=== PATIENT | male | born 1945 | race Caucasian/White ===

== ENCOUNTER → 2018-01-10 13:07 | Outpatient (CLI) | payer BC, MEDICARE, SELFPAY ==
--- NOTE | 2018-01-10 | DI.US.S_ITS ---
PROCEDURE: US ABD AORTA ANEURYSM SCREEN INDICATIONS: SCREENING TECHNIQUE: Real time scanning was performed of the aorta and iliac arteries, with image documentation. COMPARISON: None. FINDINGS: Aorta: Proximal aortic diameter measures 1.9 cm. Mid-aorta measures 1.7 cm. Distal aortic diameter is 1.5 cm. Iliac arteries: Right common iliac artery measures 1.0 cm. Left common iliac artery measures 1.1 cm. IMPRESSION: No abdominal aortic or proximal common iliac artery aneurysm. Dictated by: Huan Antonio [facility] Interpreted: Rolly Olvera MD on 01/10/2018 at 14:20 Approved by: Rolly Olvera M.D. on 01/10/2018 at 18:04
== END ==
PROVIDERS: PCP Family Medicine; Visit Provider Family Medicine
DX: Z13.6 Encounter for screening for cardiovascular disorders (principal)
CPT/HCPCS: 76706

== ENCOUNTER → 2019-04-07 08:38 | Outpatient (CLI) | payer MEDICARE, BC, SELFPAY ==
--- NOTE | 2019-04-07 08:44 | DI.CT.S_ITS ---
PROCEDURE: CT ABDOMEN PELVIS WO CON INDICATIONS: FLANK PAIN TECHNIQUE: Noncontrast 5 mm thick sections acquired from the diaphragms to the symphysis. 5 mm thick coronal and sagittal reformats were then performed. For radiation dose reduction, the following was used: automated exposure control, adjustment of mA and/or kV according to patient size. COMPARISON: None. FINDINGS: Image quality: Excellent. Lung bases: Lung bases are clear. Heart size is normal. Coronary artery calcifications are present. Distal esophageal wall thickening, versus trace hernia. Urinary system: Mild bilateral renal cortical thinning and age-indeterminate bilateral perinephric stranding. No hydronephrosis identified. No right-sided nephrolithiasis. 3 mm left renal calculus on image 34/2. Punctate left renal calculus image 43 series 2 in the inferior pole. No ureteral calculi or dilatation seen. No bladder calculi. The bladder wall grossly unremarkable. Prostate mildly enlarged. Other solid organs: Liver is normal in size. Gallbladder contracted. Pancreas is normal in contours. Spleen is normal in size. No adrenal nodules. Peritoneum and bowel: Unenhanced bowel loops demonstrate normal wall thickness and caliber. No free fluid or air. Diffuse moderate to large amount of stool Nodes and vessels: No retroperitoneal or mesenteric adenopathy by size criteria. Aorta and inferior vena cava are normal in caliber. Small midline fat containing ventral hernia. Pelvis: No free pelvic fluid. Small bilateral fat containing inguinal hernias, left greater than right. Bones: No suspicious bony lesions. Left hip arthroplasty and diffuse spondylosis and facet arthropathy. Minimal anterior wedging of the T12 vertebral body which could be physiologic, age-indeterminate. IMPRESSION: A few nonobstructive sub-5 mm left renal calculi. Coronary artery disease Possible distal esophageal wall thickening, potentially infectious or inflammatory versus neoplastic. Differential includes trace hiatal hernia. As clinically warranted, this could be further assessed with dedicated upper GI series versus endoscopy Small bilateral fat-containing inguinal hernias Large amount of diffuse stool suggestive of fecal retention Additional chronic and incidental findings as above. Dictated by: Tacho Romero M.D. on 04/07/2019 at 11:18 Approved by: Tacho Romero M.D. on 04/07/2019 at 11:25
== END ==
PROVIDERS: PCP Family Medicine; Visit Provider Family Medicine
DX: R10.9 Unspecified abdominal pain (principal); N20.0 Calculus of kidney; K40.20 Bilateral inguinal hernia, without obstruction or gangrene, not specified as recurrent; I25.10 Atherosclerotic heart disease of native coronary artery without angina pectoris; Z96.642 Presence of left artificial hip joint
CPT/HCPCS: 74176

== ENCOUNTER → 2020-01-23 06:28 | Outpatient (CLI) | payer MEDICARE, BC, SELFPAY ==
--- NOTE | 2020-01-23 | DI.ECHO.S_ITS ---
[facility] +---------+ [facility] +---------+ : : [address] : : : : [id number] : : : : Phone: [phone] Echocardiogram Report + + :Name: BOOGIE LEAL Study Date: 01/23/2020 Height: 66 in : :[facility] Weight: 194 lb : : Gender: Male BSA: 2.0 m2 : :: 1945 Age: 74 yrs BP: 148/75 mmHg: :Reason For Study: TYPE 2 DIABETES MELLITUS WITH MODERATE : :NONPROLIFERATIVE DIABETIC RETINOPATHY WITHOUT MACULAR EDEMA : :Ordering Physician: JEFF, : :CLAY Performed By: Annabella Pacheco : :Referring: CLAY AGUILAR : + + Interpretation Summary The ejection fraction is estimated to be 55-60%. There is trace mitral regurgitation. There is mild aortic valve sclerosis. Procedure: A two-dimensional transthoracic echocardiogram with color flow and Doppler was performed. Images from the parasternal window were difficult to obtain and are suboptimal in quality. The study quality was technically adequate. There is no prior echocardiogram noted for this patient. Left Ventricle: The left ventricle is normal in size and wall thickness. The ejection fraction is estimated to be 55-60%. There is a mild dyssynchronous contraction pattern, consistent with a conduction abnormality. Right Ventricle: The right ventricle grossly appears normal in size with probable normal systolic function. Atria: Both atria are normal in size. There is no Doppler evidence for an interatrial shunt. Mitral Valve: The mitral valve is normal in structure and function. There is trace mitral regurgitation. Aortic Valve: The aortic valve is grossly normal. The aortic valve is trileaflet. The aortic valve opens well. The aortic valve is slightly calcified. There is mild aortic valve sclerosis. There is no aortic valve stenosis. No aortic regurgitation is present. Tricuspid Valve: The tricuspid valve is not well visualized, but is grossly normal. Pulmonary artery pressures cannot be estimated because of the lack of a measurable TR jet velocity but the IVC suggests a CVP of around 3 mmHg. There is trace tricuspid regurgitation. Pulmonic Valve: The pulmonic valve is not well visualized. Great Vessels: The aortic root is not well visualized but is probably normal size. The ascending aorta is mildly enlarged. The IVC is of normal diameter and collapses greater than 50% with a sniff. This suggests a low right atrial pressure of 3 mm Hg. Pericardium/ Pleura There is no pericardial effusion. There is an anterior echo-free space consistent with a fat pad. There is no pleural effusion. MMode/2D Measurements & Calculations LVIDd: 4.3 cm LVOT diam: 2.0 cm LVIDs: 2.8 cm asc Aorta Diam: 3.6 cm FS: 35.9 % IVSd: 0.87 cm LVPWd: 1.1 cm LV watters. diameter/BSA (cm/m^2): 2.2 LV sys. diameter/BSA (cm/m^2): 1.4 LA A2 area: 20.6 cm2 RA long axis: 5.1 cm LA A4 area: 16.8 cm2 RA area: 19.4 cm2 LA length (vol): 5.5 cm RA vol: 62.6 ml LA vol: 53.2 ml RA : 31.7 ml/m2 LA vol index: 27.0 ml/m2 IVC diam: 1.7 cm RVD1 (basal): 3.5 cm TAPSE: 1.7 cm Doppler Measurements & Calculations Ao V2 max: 141.0 cm/sec LVOT Max Gama: 93.9 cm/sec Ao V2 mean: 94.6 cm/sec LV V1 max P.5 mmHg Ao max P.0 mmHg LV V1 VTI: 20.1 cm Ao mean P.2 mmHg REYNALDO(I,D): 2.2 cm2 Ao V2 VTI: 28.1 cm REYNALDO(V,D): 2.1 cm2 sev ratio: 0.72 REYNALDO indexed to BSA (cm^2/m^2): 1.1 MV E max gama: 65.9 cm/sec MV P1/2t max gama: 65.9 cm/sec MV A max gama: 89.6 cm/sec MVA(P1/2t): 2.8 cm2 MV E/A: 0.74 Med Peak E' Gama: 5.9 cm/sec E/E' med: 11.2 Lat Peak E' Gama: 7.4 cm/sec E/E' lat: 8.9 E/e' average: 10.0 MV P1/2t: 78.5 msec SV(LVOT): 62.4 ml Reading Physician:09:07 TOBI
== END ==
PROVIDERS: PCP Family Medicine; Referring Provider Family Medicine; Visit Provider Family Medicine
DX: E11.3393 Type 2 diabetes mellitus with moderate nonproliferative diabetic retinopathy without macular edema, bilateral (principal); I35.8 Other nonrheumatic aortic valve disorders; I77.89 Other specified disorders of arteries and arterioles
CPT/HCPCS: 93306

== ENCOUNTER → 2020-01-30 11:32 | Outpatient (CLI) | payer MEDICARE, BC, SELFPAY ==
--- NOTE | 2020-01-30 | DI.US.S_ITS ---
PROCEDURE: US CAROTID DOPPLER BI INDICATIONS: TYPE 2 DIABETES TECHNIQUE: Color and pulse Doppler interrogation was performed of both carotid systems, with image documentation and velocity measurements. COMPARISON: [facility], , CAROTID ARTERY DOPPLER BIL, 08/01/2009, 15:52. FINDINGS: Stenosis calculations are based on SRU (Society of Radiologists in Ultrasound) criteria. The flow velocities and the arterial waveforms are normal within both carotid arterial systems. The estimated degree of internal carotid artery stenosis is less than 50%. Antegrade flow is confirmed within both vertebral arteries. IMPRESSION: No hemodynamically significant stenosis is seen. No significant change from the prior. Dictated by: Miguel Nicholson M.D. on 01/30/2020 at 11:46 Approved by: Miguel Nicholson M.D. on 01/30/2020 at 11:46
== END ==
PROVIDERS: PCP Family Medicine; Referring Provider Family Medicine; Visit Provider Family Medicine
DX: E11.3393 Type 2 diabetes mellitus with moderate nonproliferative diabetic retinopathy without macular edema, bilateral (principal)
CPT/HCPCS: 93880

== ENCOUNTER → 2020-02-27 08:29 | Outpatient (CLI) | payer MEDICARE, BC, SELFPAY ==
--- NOTE | 2020-02-27 | DI.US.S_ITS ---
PROCEDURE: US ABDOMEN COMPLETE INDICATIONS: CHRONIC KIDNEY DISEASE TECHNIQUE: Real-time scanning was performed of the abdominal and retroperitoneal organs, with image documentation. COMPARISON: [facility], CT, CT ABDOMEN PELVIS WO CON, 04/07/2019, 8:44. FINDINGS: Liver: Liver is diffusely echogenic. Liver measures 17.2 cm in length. 2.8 x 1.7 x 1.6 cm hypoechoic focus at the dome. Gallbladder: Unremarkable. No sonographic Salazar sign. Biliary ducts: Intrahepatic bile ducts are non-dilated. Extrahepatic bile duct caliber measures 2-5 mm. Normal is 6-7 mm or less in diameter, or 10 mm or less post-cholecystectomy. Pancreas: Visualized portions of the pancreas are sonographically normal. Spleen: Spleen is normal in size and mildly heterogeneous in echotexture. Kidneys: Right kidney measures 11.7 cm long; left kidney measures 10.9 cm long. No hydronephrosis or nephrolithiasis. No solid masses. Right renal cortical thinning. Bilateral lobulated renal contours. Aorta: Visualized aorta is normal in caliber at less than 3 cm. However the proximal abdominal aorta is not well seen sonographically. Iliacs: Proximal common iliac arteries are normal in caliber at less than 2.5 cm. IVC: Not well seen sonographically Miscellaneous: No free abdominal fluid. Prevoid bladder volume measured 107 cc, however no postvoid residual was obtainable. IMPRESSION: Coarse echogenic liver suggesting diffuse hepatocellular disease/fatty infiltration. Please correlate with LFTs. Ill-defined hypoechoic lesion involving the liver dome, technically nonspecific. As clinically warranted, continued surveillance with ultrasound at six-month intervals to document long-term 2 year stability could be performed or if there is high clinical suspicion, contrast enhanced liver protocol MRI could be considered to evaluate for malignancy. Dictated by: Tacho Romero M.D. on 02/27/2020 at 11:37 Approved by: Tacho Romero M.D. on 02/27/2020 at 11:43
== END ==
PROVIDERS: PCP Family Medicine; Referring Provider Family Medicine; Visit Provider Family Medicine
DX: N18.9 Chronic kidney disease, unspecified (principal); K76.9 Liver disease, unspecified
CPT/HCPCS: 76700

== ENCOUNTER → 2020-06-18 08:44 | Outpatient (CLI) | payer MEDICARE, BC, SELFPAY ==
--- NOTE | 2020-06-18 09:58 | DIET.PN ---
Diabetes Intake: Initial Assessment Assess: Mr. Moreira is a 74 yom referred for type 2 diabetes. He reports good control until the last few months. His medication was cut in half due to frequent hypo?s and chronic kidney disease. He is not active since retiring a couple of years ago. Admits to eating fast food nearly every day. He drinks large amounts of juice for breakfast. Labs: Per pt report: A1c: 8.4 eGFR: 42.4 FB?s Meds: metformin 500mg BID; glipizide 10mg BID Diet: per 24 hr recall: B: sausage and eggs, couple glasses of OJ L: usually skips D: chicken, [place]vian fries (usually [employer]) Wt: 196lb Ht: 66in BMI: 31.6 BP: DX: Altered nutrition related laboratory values related to impaired glucose metabolism, lack of previous exposure to nutrition information as evidenced by pt report, diagnosis of diabetes, previous diet high in refined carbohydrates. Intervention: 1. Completed intake assessment. Discussed barriers to care. 2. Discussed pathophysiology of diabetes. Reviewed A1c and its correlation to blood glucose numbers. Discussed recommended BG ranges. 3. Discussed importance of self-monitoring, how often, and when to check. 4. Reviewed hyper/hypoglycemia and treatment. 5. Reviewed safe disposal of equipment (strip/lancets/insulin needles). 6. Created SMART goals for pt self-care and success. 7. Discussed program curriculum outline and class needs based on individual goals. SMART Goals: 1. Pt goal A1c of 7.0 in the next 3 mo through learning carbohydrate counting, portion control and including planned exercise every day. Monitor/Evaluate: Pt will attend full DSME program. Basic Nutrition class scheduled for Jun 25.
== END ==
PROVIDERS: PCP Family Medicine; Referring Provider Family Medicine; Visit Provider Family Medicine
DX: E11.22 Type 2 diabetes mellitus with diabetic chronic kidney disease (principal); N18.9 Chronic kidney disease, unspecified; E66.9 Obesity, unspecified; Z79.84 Long term (current) use of oral hypoglycemic drugs; Z68.31 Body mass index [BMI] 31.0-31.9, adult; Z71.3 Dietary counseling and surveillance
CPT/HCPCS: G0108

== ENCOUNTER → 2020-06-25 09:38 | Outpatient (CLI) | payer MEDICARE, BC, SELFPAY ==
--- NOTE | 2020-06-25 12:02 | DIET.PN ---
Diabetes: Healthy Eating 2 Intervention: Fats effects on glucose, weight, heart disease, cholesterol Sat Vs Unsat Protein- animal and plant based options Low, med, high fat meats Sugar substitutes Sodium Health claims Grocery shopping guidelines Eating away from home Alcohol Sick day guidelines Ketone Testing
== END ==
PROVIDERS: PCP Family Medicine; Referring Provider Family Medicine; Visit Provider Family Medicine
DX: E11.9 Type 2 diabetes mellitus without complications (principal); Z71.3 Dietary counseling and surveillance
CPT/HCPCS: G0109

== ENCOUNTER → 2020-07-16 09:31 | Outpatient (CLI) | payer MEDICARE, BC, SELFPAY ==
--- NOTE | 2020-07-16 12:22 | DIET.PN ---
Diabetes: Healthy Eating 1 Intervention: ? Discussed pathophysiology of diabetes and impact of nutrition/diet on blood sugar control.? Discussed fed versus non-fed state.?? ? Reviewed importance of Balance, Variety, and Moderation. ? Discussed the effect of carbohydrates/protein/fat on blood sugar control.? ? Stressed importance of consistent carbohydrate intake at each meal and provided instructions for recommended servings/portions of carbohydrates/protein per meal. Provided educational material. ? Reviewed carbohydrate counting and measuring carbohydrate content via serving sizes and reading nutrition labels.? Provided handouts.?? ? Discussed the difference between simple versus complex carbohydrates and the effect of fiber on blood sugar control.? Discussed various methods to increase fiber content in diet. ? Discussed the plate method for creating more carbohydrate conscious balanced meals. ? Stressed importance of meal timing and not going >4-5 hours between meals. Encouraged adding protein to evening snack to support glucose control overnight. ? Discussed importance of making dietary habits part of lifestyle change.
== END ==
PROVIDERS: PCP Family Medicine; Referring Provider Family Medicine; Visit Provider Family Medicine
DX: E11.9 Type 2 diabetes mellitus without complications (principal); Z71.3 Dietary counseling and surveillance
CPT/HCPCS: G0109

== ENCOUNTER → 2020-07-30 10:25 | Outpatient (CLI) | payer MEDICARE, BC, SELFPAY ==
--- NOTE | 2020-07-30 | DI.US.S_ITS ---
PROCEDURE: US CAROTID DOPPLER BI INDICATIONS: coronary atherosclerosis due to lipid rich plaque TECHNIQUE: Color and pulse Doppler interrogation was performed of both carotid systems, with image documentation and velocity measurements. COMPARISON: [facility], , CAROTID ARTERY DOPPLER BILAT, 08/01/2009, 15:52. [facility], , US CAROTID DOPPLER BI, 01/30/2020, 12:08. FINDINGS: Stenosis calculations are based on SRU (Society of Radiologists in Ultrasound) criteria. The flow velocities and the arterial waveforms are normal within both carotid arterial systems. Atherosclerotic plaque is seen on both sides. The estimated degree of internal carotid artery stenosis is less than 50%. Antegrade flow is confirmed within both vertebral arteries. IMPRESSION: No hemodynamically significant stenosis is seen. Similar to prior. Dictated by: Miguel Nicholson M.D. on 07/30/2020 at 10:47 Approved by: Miguel Nicholson M.D. on 07/30/2020 at 10:48
== END ==
PROVIDERS: PCP Family Medicine; Referring Provider Family Medicine; Visit Provider Family Medicine
DX: I65.23 Occlusion and stenosis of bilateral carotid arteries (principal); I25.83 Coronary atherosclerosis due to lipid rich plaque
CPT/HCPCS: 93880

== ENCOUNTER → 2020-08-14 07:36 | Outpatient (CLI) | payer MEDICARE, BC, SELFPAY ==
--- NOTE | 2020-08-14 | DI.US.S_ITS ---
PROCEDURE: US ABDOMEN LIMITED INDICATIONS: LIVER LESION TECHNIQUE: Real-time focused scanning was performed of the abdomen, with image documentation. COMPARISON: [facility], US, US ABDOMEN COMPLETE, 02/27/2020, 8:46. [facility], CT, CT ABDOMEN PELVIS WO CON, 04/07/2019, 8:44. FINDINGS: The liver is fatty infiltrated, moderate in severity, this has been previously seen by ultrasound and CT scanning. No liver at the dome of the liver, and no ascites or varices has developed. IMPRESSION: No liver lesion now found. Moderate fatty aeration throughout ptosis which is was the visualized on prior CT and ultrasound scanning. Dictated by: Cory Adams M.D. on 08/14/2020 at 10:17 Approved by: Cory Adams M.D. on 08/14/2020 at 10:22
== END ==
PROVIDERS: PCP Family Medicine; Referring Provider Family Medicine; Visit Provider Family Medicine
DX: K76.9 Liver disease, unspecified (principal)
CPT/HCPCS: 76705

== ENCOUNTER 2020-12-13 15:30 | Inpatient (IN) | payer MEDICARE, BC, SELFPAY ==
[2020-12-13] VITALS (9 sets, daily range): BP systolic 131–154; BP diastolic 62–72; PULSE 80–95; RESP 15–22; TEMP 36.3–36.6; O2SAT 98–100; BMI 30.3
[2020-12-13 16:05] LABS: Add Manual Diff / Slide Review NO; Basophils Absolute Auto 0 /uL (0-100); Basophils Percent Auto 0.6 % (0-2); Eosinophils Absolute Auto 0 /uL (0-450); Eosinophils Percent Auto 0.7 % (2-4); Hematocrit 33.1 % (41-53); Hemoglobin 10.8 g/dL (13.5-17.5); Lymphocytes Absolute Auto 1000 /uL (1100-4500); Lymphocytes Percent Auto 23.2 % (25-40); Mean Corpuscular HGB Conc 32.6 % (30-36); Mean Corpuscular Hemoglobin 28.1 PG (26-34); Mean Corpuscular Volume 86.1 fL (80-100); Monocytes Absolute Auto 300 /uL (0-900); Monocytes Percent Auto 7.1 % (3-14); Neutrophils Absolute Auto 3000 /uL (1500-7000); Neutrophils Percent Auto 68.4 % (50-75); Platelet Count 108 X10^3/uL (150-400); Red Blood Cell Count 3.84 X10^6/uL (4.5-5.9); White Blood Cell Count 4.4 X10^3/uL (4.5-11.0)
[2020-12-13 16:12] LABS: Alanine Aminotransferase 26 IU/L (<50); Albumin 4.7 g/dL (3.5-5.0); Albumin Globulin Ratio 1.4 (1.0-2.8); Alkaline Phosphatase 74 U/L (38-126); Aspartate Aminotransferase 27 IU/L (17-59); BUN Creatinine Ratio 18.1 (6-22); Bilirubin Total 0.3 mg/dL (0.2-1.3); Blood Urea Nitrogen 32 mg/dL (9-20); Calcium 9.6 mg/dL (8.4-10.2); Carbon Dioxide 23 mmol/L (22-32); Chloride 108 mmol/L (98-107); Estimated Glomerular Filt Rate 37.9 mL/min (>60); Globulin 3.3 g/dL (1.7-4.1); Glucose 132 mg/dL (80-110); HEMOLYSIS < 15 (0-50); Sodium 139 mmol/L (137-145)
[2020-12-13] MEDS: INSULIN REGULAR 100 UNIT/ML 3 ML VIAL IV ×2 (16:52→17:05)
[2020-12-13] MEDS: DEXTROSE 50 % IN WATER 25 GM/50 ML SYRINGE IV ×2 (16:52→19:57)
[2020-12-13] MEDS: SODIUM CHLORIDE 0.9% 1,000 ML 1000 ML IV (16:52)
--- NOTE | 2020-12-13 16:58 | ED.RECABL ---
HPI - Recheck/Abnormal Lab/Rx <Geena Lynch DO - Last Filed: 12/14/20 07:46> General Chief Complaint: Recheck/Abnormal Lab/Rx Stated Complaint: ABNORMAL LABS Time Seen by Provider: 12/13/20 16:39 Source: patient Mode of arrival: Ambulatory Limitations: no limitations History of Present Illness HPI narrative: Patient is a 75-year-old male history of diabetes hyperlipidemia presenting today with elevated potassium. He states that he went to have outpatient blood work done he was supposed to get hemoglobin A1c done for his endocrinology appointment next week however he was called in from to go directly to the emergency department for an elevated potassium. He has elevated potassium level 5.5 and 5.3. He takes lisinopril daily. He has no chest pain no dizziness no abdominal pain no nausea or vomiting. He is overall asymptomatic. Related Data Home Medications Medication Instructions Recorded Confirmed atorvastatin 10 mg tablet 5 mg PO DAILY 11/28/19 12/13/20 diclofenac sodium 1 % topical gel 1 % TOPICAL PRN PRN 11/28/19 12/13/20 (Voltaren) omeprazole 20 mg tablet,delayed 20 mg PO DAILY 11/28/19 12/13/20 release metformin 500 mg tablet 500 mg PO BID 08/06/20 12/13/20 dulaglutide 1.5 mg/0.5 mL 1.5 mg SUBCUT QWEEK 12/13/20 12/13/20 subcutaneous pen injector (Trulicity) Previous Rx's Medication Instructions Recorded mecobalamin (vitamin B12) 1,000 1,000 mcg PO DAILY #100 tab 12/13/19 mcg chewable tablet Allergies Allergy/AdvReac Type Severity Reaction Status Date / Time No Known Drug Allergies Allergy Verified 12/13/20 15:33 Review of Systems <Geena Lynch DO - Last Filed: 12/14/20 07:46> Review of Systems Narrative: GENERAL: Denies chills, fatigue, malaise, fever, sweats, travel HEENT: Denies sinus pain, ear pain, sore throat, difficulty swallowing, neck pain RESPIRATORY: Denies dyspnea, cough, wheezing, hemoptysis, sputum. CARDIOVASCULAR: Denies chest pain, palpitations, orthopnea, edema GASTROINTESTINAL: Denies nausea, vomiting, abdominal pain, diarrhea, constipation, melena. : Denies dysuria, frequency, incontinence, hematuria, urinary retention, flank pain. MUSCULOSKELETAL: Denies weakness, joint pain, or bony pain SKIN: No rash, no erythema, no pruritus NEUROLOGIC: Denies weakness, dizziness, headache, numbness, change in speech, confusion PSYCHIATRIC: No concerning psychosocial issues. 12 point review of systems is negative except for those stated above and HPI Patient History <Geena Lynch DO - Last Filed: 12/14/20 07:46> Social History household members: none Smoking Status: Never smoker alcohol intake: former eating out: 4 or more times/week Type(s) of exercise: none Smoking Status: Unknown if ever smoked alcohol intake frequency: holidays/special occasions only Substance Use Type: does not use Exam <DO Rodrigo Marley Last Filed: 12/14/20 07:46> Initial Vital Signs Initial Vital Signs: Vital Signs Temperature 97.9 F 12/13/20 15:33 Pulse Rate 80 12/13/20 15:33 Respiratory Rate 15 12/13/20 15:33 Blood Pressure 154/72 H 12/13/20 15:33 Pulse Oximetry 98 12/13/20 15:33 GENERAL: Well-appearing 75-year-old male in no acute distress. HEENT: Head atraumatic,EOMI, pupils reactive, face symmetric, moistmucous membranes CARDIOVASCULAR: Regular rate and rhythm without murmurs, rubs or gallops. RESPIRATORY: Breath sounds equal bilaterally, no wheezes rales or rhonchi. ABDOMEN: Soft, nontender. Normoactive bowel sounds all 4 quadrants. No guarding or rebound. EXTREMITIES: Normal range of motion, no clubbing or edema. Neurovascularly intact NEUROLOGICAL: Alert and oriented x4.Normal gait and speech. SKIN: Warm, dry, no laceration, no petechiae, no rashes or lesions. <aSntana Cazares DO - Last Filed: 12/13/20 21:57> Initial Vital Signs Initial Vital Signs: Vital Signs Temperature 97.9 F 12/13/20 15:33 Pulse Rate 80 12/13/20 15:33 Respiratory Rate 15 12/13/20 15:33 Blood Pressure 154/72 H 12/13/20 15:33 Pulse Oximetry 98 12/13/20 15:33 Course <Geena Lynch DO - Last Filed: 12/14/20 07:46> Orders Ordered: Acetaminophen (Acetaminophen 325 Mg Tablet) 650 mg PO Q6HR PRN PRN Reason: Fever/Mild Pain (1-3) Al Hydrox/Mg Hydrox/Simethicone (Mag Hydrox/Alum/Simeth 30 Ml Udc) 30 ml PO Q6HR PRN PRN Reason: Dyspepsia Atorvastatin Calcium (Atorvastatin 20 Mg Tablet) 5 mg PO DAILY ARJUN Bisacodyl (Bisacodyl 10 Mg Supp) 10 mg CA DAILY PRN PRN Reason: Constipation Enoxaparin Sodium (Enoxaparin 40 Mg/0.4 Ml Syringe) 40 mg SUBCUT DAILY ARJUN Metformin HCl (Metformin Hcl 500 Mg Tablet) 500 mg PO BID ARJUN Naloxone HCl (Naloxone 0.4 Mg/Ml Vial) 0.2 mg IV Q2MIN PRN PRN Reason: Opiate Reversal Pantoprazole Sodium (Pantoprazole Dr 20 Mg Tablet) 20 mg PO 0600 [facility] Last Admin: 12/14/20 06:02 Dose: Not Given Documented by: CMCFARL Sodium Chloride (Sodium Chloride 0.9% Flush) 10 ml IV PRN PRN PRN Reason: Flush Sodium Chloride (Sodium Chloride 0.9% Flush) 10 ml IV BID [facility] Last Admin: 12/13/20 22:31 Dose: 10 ml Documented by: MARY Discontinued Medications Albuterol (Albuterol 2.5 Mg/3 Ml Neb (Adult)) 2.5 mg INH NOW ONE Stop: 12/13/20 20:05 Last Admin: 12/13/20 21:12 Dose: 2.5 mg Documented by: KGALLAG Dextrose (Dextrose 50 % In Water 25 Gm/50 Ml Syringe) 25 gm IV NOW ONE Stop: 12/13/20 16:40 Last Admin: 12/13/20 16:52 Dose: 25 gm Documented by: NATANS Dextrose (Dextrose 50 % In Water 25 Gm/50 Ml Syringe) 25 gm IV NOW ONE Stop: 12/13/20 19:47 Last Admin: 12/13/20 19:57 Dose: 25 gm Documented by: KGALLAG Furosemide (Furosemide 40 Mg/4 Ml Vial) 20 mg IV NOW ONE Stop: 12/13/20 19:41 Last Admin: 12/13/20 19:57 Dose: 20 mg Documented by: KGALLAG Sodium Chloride (Normal Saline 0.9%) 1,000 mls @ 1,000 mls/hr IV BOLUS ONE Stop: 12/13/20 17:38 Last Infusion: 12/13/20 18:32 Dose: 0 mls/hr Documented by: Admin: 12/13/20 16:52 Dose: 1,000 mls/hr Documented by: TAJ Insulin Human Regular (Insulin Regular 100 Unit/Ml 3 Ml Vial) 5 unit IV NOW ONE Stop: 12/13/20 16:40 Last Admin: 12/13/20 16:52 Dose: 5 unit Documented by: TAJ Cosigned by: ELISA Insulin Human Regular (Insulin Regular 100 Unit/Ml 3 Ml Vial) 5 unit IV NOW ONE Stop: 12/13/20 17:03 Last Admin: 12/13/20 17:05 Dose: 5 unit Documented by: TAJ Cosigned by: ELISA Insulin Human Regular (Insulin Regular 100 Unit/Ml 3 Ml Vial) 10 unit IV NOW ONE Stop: 12/13/20 19:47 Last Admin: 12/13/20 19:58 Dose: 10 unit Documented by: ANDREA Cosigned by: ANDREA Sodium Polystyrene Sulfonate (Sodium Polystyrene Sulfon/Sorb 15 Gm/60 Ml Cup) 15 gm PO NOW ONE Stop: 12/13/20 19:41 Last Admin: 12/13/20 19:58 Dose: 15 gm Documented by: ANDREA Vital Signs Vital signs: Vital Signs - 8 hr 12/13/20 15:33 12/13/20 17:08 12/13/20 17:30 Temperature 97.9 F Pulse Rate 80 80 95 H Respiratory Rate 15 18 Blood Pressure 154/72 H 147/67 H 148/67 H Pulse Oximetry 98 99 100 12/13/20 18:00 12/13/20 18:30 Temperature Pulse Rate 89 87 Respiratory Rate Blood Pressure 141/65 H 131/62 Pulse Oximetry 99 98 <Santana Cazares DO - Last Filed: 12/13/20 21:57> Orders Ordered: Acetaminophen (Acetaminophen 325 Mg Tablet) 650 mg PO Q6HR PRN PRN Reason: Fever/Mild Pain (1-3) Al Hydrox/Mg Hydrox/Simethicone (Mag Hydrox/Alum/Simeth 30 Ml Udc) 30 ml PO Q6HR PRN PRN Reason: Dyspepsia Atorvastatin Calcium (Atorvastatin 20 Mg Tablet) 5 mg PO DAILY [facility] Bisacodyl (Bisacodyl 10 Mg Supp) 10 mg CA DAILY PRN PRN Reason: Constipation Enoxaparin Sodium (Enoxaparin 40 Mg/0.4 Ml Syringe) 40 mg SUBCUT DAILY [facility] Metformin HCl (Metformin Hcl 500 Mg Tablet) 500 mg PO BID [facility] Naloxone HCl (Naloxone 0.4 Mg/Ml Vial) 0.2 mg IV Q2MIN PRN PRN Reason: Opiate Reversal Pantoprazole Sodium (Pantoprazole Dr 20 Mg Tablet) 20 mg PO 0600 [facility] Last Admin: 12/14/20 06:02 Dose: Not Given Documented by: CMCFARL Sodium Chloride (Sodium Chloride 0.9% Flush) 10 ml IV PRN PRN PRN Reason: Flush Sodium Chloride (Sodium Chloride 0.9% Flush) 10 ml IV BID [facility] Last Admin: 12/13/20 22:31 Dose: 10 ml Documented by: MARY Discontinued Medications Albuterol (Albuterol 2.5 Mg/3 Ml Neb (Adult)) 2.5 mg INH NOW ONE Stop: 12/13/20 20:05 Last Admin: 12/13/20 21:12 Dose: 2.5 mg Documented by: ANDREA Dextrose (Dextrose 50 % In Water 25 Gm/50 Ml Syringe) 25 gm IV NOW ONE Stop: 12/13/20 16:40 Last Admin: 12/13/20 16:52 Dose: 25 gm Documented by: TAJ Dextrose (Dextrose 50 % In Water 25 Gm/50 Ml Syringe) 25 gm IV NOW ONE Stop: 12/13/20 19:47 Last Admin: 12/13/20 19:57 Dose: 25 gm Documented by: ANDREA Furosemide (Furosemide 40 Mg/4 Ml Vial) 20 mg IV NOW ONE Stop: 12/13/20 19:41 Last Admin: 12/13/20 19:57 Dose: 20 mg Documented by: ANDREA Sodium Chloride (Normal Saline 0.9%) 1,000 mls @ 1,000 mls/hr IV BOLUS ONE Stop: 12/13/20 17:38 Last Infusion: 12/13/20 18:32 Dose: 0 mls/hr Documented by: Admin: 12/13/20 16:52 Dose: 1,000 mls/hr Documented by: TAJ Insulin Human Regular (Insulin Regular 100 Unit/Ml 3 Ml Vial) 5 unit IV NOW ONE Stop: 12/13/20 16:40 Last Admin: 12/13/20 16:52 Dose: 5 unit Documented by: TAJ Cosigned by: ELISA Insulin Human Regular (Insulin Regular 100 Unit/Ml 3 Ml Vial) 5 unit IV NOW ONE Stop: 12/13/20 17:03 Last Admin: 12/13/20 17:05 Dose: 5 unit Documented by: TAJ Cosigned by: ELISA Insulin Human Regular (Insulin Regular 100 Unit/Ml 3 Ml Vial) 10 unit IV NOW ONE Stop: 12/13/20 19:47 Last Admin: 12/13/20 19:58 Dose: 10 unit Documented by: ANDREA Cosigned by: ANDREA Sodium Polystyrene Sulfonate (Sodium Polystyrene Sulfon/Sorb 15 Gm/60 Ml Cup) 15 gm PO NOW ONE Stop: 12/13/20 19:41 Last Admin: 12/13/20 19:58 Dose: 15 gm Documented by: ANDREA Vital Signs Vital signs: Vital Signs - 8 hr 12/13/20 15:33 12/13/20 17:08 12/13/20 17:30 Temperature 97.9 F Pulse Rate 80 80 95 H Respiratory Rate 15 18 Blood Pressure 154/72 H 147/67 H 148/67 H Pulse Oximetry 98 99 100 12/13/20 18:00 12/13/20 18:30 Temperature Pulse Rate 89 87 Respiratory Rate Blood Pressure 141/65 H 131/62 Pulse Oximetry 99 98 MDM - Recheck/Abnormal Lab/Rx <Geena Lynch DO - Last Filed: 12/14/20 07:46> Lab Data Result diagrams: 12/13/20 15:41 12/14/20 06:07 Labs: Lab Results 12/13/20 12/13/20 12/13/20 Range/Units 15:41 15:41 18:50 WBC 4.4 L (4.5-11.0) X10^3/uL RBC 3.84 L (4.5-5.9) X10^6/uL Hgb 10.8 L (13.5-17.5) g/dL Hct 33.1 L (41-53) % MCV 86.1 (80-100) fL MCH 28.1 (26-34) PG MCHC 32.6 (30-36) % RDW 15.0 H (11.6-14.8) % Plt Count 108 L (150-400) X10^3/uL Neut % (Auto) 68.4 (50-75) % Lymph % (Auto) 23.2 L (25-40) % [place] % (Auto) 7.1 (3-14) % Eos % (Auto) 0.7 L (2-4) % Baso % (Auto) 0.6 (0-2) % Neut # (Auto) 3000 (4552-7575) /uL Lymph # (Auto) 1000 L (8853-8247) /uL [place] # (Auto) 300 (0-900) /uL Eos # (Auto) 0 (0-450) /uL Baso # (Auto) 0 (0-100) /uL Sodium 139 (137-145) mmol/L Potassium 6.7 H* 6.7 H* (3.4-5.1) mmol/L Chloride 108 H (98-107) mmol/L Carbon Dioxide 23 (22-32) mmol/L BUN 32 H (9-20) mg/dL Creatinine 1.77 H (0.66-1.25) mg/dL Estimated GFR 37.9 L (>60) mL/min BUN/Creatinine Ratio 18.1 (6-22) Glucose 132 H (80-110) mg/dL Calcium 9.6 (8.4-10.2) mg/dL Total Bilirubin 0.3 (0.2-1.3) mg/dL AST 27 (17-59) IU/L ALT 26 (<50) IU/L Alkaline Phosphatase 74 (38-126) U/L Total Protein 8.0 (6.3-8.2) g/dL Albumin 4.7 (3.5-5.0) g/dL Globulin 3.3 (1.7-4.1) g/dL Albumin/Globulin Ratio 1.4 (1.0-2.8) SARS-CoV-2 (PCR) (Negative) 12/13/20 Range/Units 19:34 WBC (4.5-11.0) X10^3/uL RBC (4.5-5.9) X10^6/uL Hgb (13.5-17.5) g/dL Hct (41-53) % MCV (80-100) fL MCH (26-34) PG MCHC (30-36) % RDW (11.6-14.8) % Plt Count (150-400) X10^3/uL Neut % (Auto) (50-75) % Lymph % (Auto) (25-40) % [place] % (Auto) (3-14) % Eos % (Auto) (2-4) % Baso % (Auto) (0-2) % Neut # (Auto) (2319-6433) /uL Lymph # (Auto) (6736-1515) /uL [place] # (Auto) (0-900) /uL Eos # (Auto) (0-450) /uL Baso # (Auto) (0-100) /uL Sodium (137-145) mmol/L Potassium (3.4-5.1) mmol/L Chloride (98-107) mmol/L Carbon Dioxide (22-32) mmol/L BUN (9-20) mg/dL Creatinine (0.66-1.25) mg/dL Estimated GFR (>60) mL/min BUN/Creatinine Ratio (6-22) Glucose (80-110) mg/dL Calcium (8.4-10.2) mg/dL Total Bilirubin (0.2-1.3) mg/dL AST (17-59) IU/L ALT (<50) IU/L Alkaline Phosphatase (38-126) U/L Total Protein (6.3-8.2) g/dL Albumin (3.5-5.0) g/dL Globulin (1.7-4.1) g/dL Albumin/Globulin Ratio (1.0-2.8) SARS-CoV-2 (PCR) Negative (Negative) Point of Care Testing Glucose POC 137 ECG Data Interpretation: Normal sinus rhythm rate 78 CA interval 180 QRS [address] changes MDM Narrative Medical decision making narrative: Patient is completely asymptomatic but does have potassium of 6.7. He is given 10 units of insulin and dextrose along with IV fluids. Potassium is retracting remains 6.7 he remains asymptomatic. He is given Lasix Kayexalate more insulin and dextrose. Dr. Roe updated on patient's symptoms and test results and agrees with admission Patient signed out to Dr. Cazares repeat potassium before going up stairs. <Santana Cazares, DO - Last Filed: 12/13/20 21:57> Lab Data Labs: Lab Results 12/13/20 12/13/20 12/13/20 Range/Units 15:41 15:41 18:50 WBC 4.4 L (4.5-11.0) X10^3/uL RBC 3.84 L (4.5-5.9) X10^6/uL Hgb 10.8 L (13.5-17.5) g/dL Hct 33.1 L (41-53) % MCV 86.1 (80-100) fL MCH 28.1 (26-34) PG MCHC 32.6 (30-36) % RDW 15.0 H (11.6-14.8) % Plt Count 108 L (150-400) X10^3/uL Neut % (Auto) 68.4 (50-75) % Lymph % (Auto) 23.2 L (25-40) % [place] % (Auto) 7.1 (3-14) % Eos % (Auto) 0.7 L (2-4) % Baso % (Auto) 0.6 (0-2) % Neut # (Auto) 3000 (1711-2046) /uL Lymph # (Auto) 1000 L (3688-5881) /uL [place] # (Auto) 300 (0-900) /uL Eos # (Auto) 0 (0-450) /uL Baso # (Auto) 0 (0-100) /uL Sodium 139 (137-145) mmol/L Potassium 6.7 H* 6.7 H* (3.4-5.1) mmol/L Chloride 108 H (98-107) mmol/L Carbon Dioxide 23 (22-32) mmol/L BUN 32 H (9-20) mg/dL Creatinine 1.77 H (0.66-1.25) mg/dL Estimated GFR 37.9 L (>60) mL/min BUN/Creatinine Ratio 18.1 (6-22) Glucose 132 H (80-110) mg/dL Calcium 9.6 (8.4-10.2) mg/dL Total Bilirubin 0.3 (0.2-1.3) mg/dL AST 27 (17-59) IU/L ALT 26 (<50) IU/L Alkaline Phosphatase 74 (38-126) U/L Total Protein 8.0 (6.3-8.2) g/dL Albumin 4.7 (3.5-5.0) g/dL Globulin 3.3 (1.7-4.1) g/dL Albumin/Globulin Ratio 1.4 (1.0-2.8) SARS-CoV-2 (PCR) (Negative) 12/13/20 Range/Units 19:34 WBC (4.5-11.0) X10^3/uL RBC (4.5-5.9) X10^6/uL Hgb (13.5-17.5) g/dL Hct (41-53) % MCV (80-100) fL MCH (26-34) PG MCHC (30-36) % RDW (11.6-14.8) % Plt Count (150-400) X10^3/uL Neut % (Auto) (50-75) % Lymph % (Auto) (25-40) % [place] % (Auto) (3-14) % Eos % (Auto) (2-4) % Baso % (Auto) (0-2) % Neut # (Auto) (9031-2286) /uL Lymph # (Auto) (2746-6851) /uL [place] # (Auto) (0-900) /uL Eos # (Auto) (0-450) /uL Baso # (Auto) (0-100) /uL Sodium (137-145) mmol/L Potassium (3.4-5.1) mmol/L Chloride (98-107) mmol/L Carbon Dioxide (22-32) mmol/L BUN (9-20) mg/dL Creatinine (0.66-1.25) mg/dL Estimated GFR (>60) mL/min BUN/Creatinine Ratio (6-22) Glucose (80-110) mg/dL Calcium (8.4-10.2) mg/dL Total Bilirubin (0.2-1.3) mg/dL AST (17-59) IU/L ALT (<50) IU/L Alkaline Phosphatase (38-126) U/L Total Protein (6.3-8.2) g/dL Albumin (3.5-5.0) g/dL Globulin (1.7-4.1) g/dL Albumin/Globulin Ratio (1.0-2.8) SARS-CoV-2 (PCR) Negative (Negative) Point of Care Testing Glucose POC 137 MDM Narrative Medical decision making narrative: Patient is completely asymptomatic but does have potassium of 6.7. He is given 10 units of insulin and dextrose along with IV fluids. Potassium is retracting remains 6.7 he remains asymptomatic. He is given Lasix Kayexalate more insulin and dextrose. Dr. Roe updated on patient's symptoms and test results and agrees with admission Patient signed out to Dr. Cazares repeat potassium before going up stairs. Dr cazares: Received turned over. Reviewed patient's history and physical. Patient has been receiving therapies for hyperkalemia. Is asymptomatic. His repeat potassium is lower. Will proceed with initial plan to admit to acute care floor. Discharge Plan Departure Patient Disposition: Admitted As Inpatient Clinical Impression: Acute hyperkalemia Admit Date/Time: 12/13/20 19:48 Admit Provider: Jaydon Roe
[2020-12-13 17:38] LABS: Potassium 6.7 mmol/L (3.4-5.1)
[2020-12-13 19:18] LABS: HEMOLYSIS < 15 (0-50)
[2020-12-13 19:30] LABS: Potassium 6.7 mmol/L (3.4-5.1)
[2020-12-13] MEDS: FUROSEMIDE 40 MG/4 ML VIAL 20 MG IV (19:57)
[2020-12-13] MEDS: SODIUM POLYSTYRENE SULFON/SORB 15 GM/60 ML CUP PO (19:58)
[2020-12-13] MEDS: INSULIN REGULAR 100 UNIT/ML 3 ML VIAL 10 UNIT IV (19:58)
[2020-12-13 20:51] LABS: COVID19 - ADMIT (NP swab/PCR) Negative (Negative)
[2020-12-13] MEDS: ALBUTEROL 2.5 MG/3 ML NEB (ADULT) INH (21:12)
[2020-12-13 21:18] LABS: HEMOLYSIS < 15 (0-50)
[2020-12-13 21:19] LABS: Potassium 5.4 mmol/L (3.4-5.1)
[2020-12-13] MEDS: SODIUM CHLORIDE 0.9% FLUSH 10 ML IV (22:31)
--- NOTE | 2020-12-13 22:49 | PC.NURSE ---
Pt to room 222 from E.R. via wheelchair. Ambulatory without assistive devices. Pt denies pain. Telemetry placed on pt and ICU notified. Pt was oriented to call light. Bed alarm in place as well as BL calf scd's. Blood sugar checked upon arrival to floor = 137. Offered pt foods and fluids and pt declines. States had food/fluids in E.R. Ambulatory to bathroom to void and stool. Steady gait.
[2020-12-14] VITALS (11 sets, daily range): BP systolic 108–120; BP diastolic 62–73; PULSE 72–90; RESP 16–18; TEMP 36.1–36.6; O2SAT 96–100
[2020-12-14 07:07] LABS: BUN Creatinine Ratio 18.2 (6-22); Blood Urea Nitrogen 28 mg/dL (9-20); Carbon Dioxide 25 mmol/L (22-32); Chloride 107 mmol/L (98-107); Estimated Glomerular Filt Rate 44.5 mL/min (>60); Glucose 92 mg/dL (80-110); HEMOLYSIS < 15 (0-50); Sodium 139 mmol/L (137-145)
[2020-12-14 07:11] LABS: Potassium 5.6 mmol/L (3.4-5.1)
[2020-12-14] MEDS: ATORVASTATIN 20 MG TABLET 5 MG PO (09:45)
[2020-12-14] MEDS: SODIUM CHLORIDE 0.9% FLUSH 10 ML IV ×2 (09:46→22:12)
[2020-12-14] MEDS: ENOXAPARIN 40 MG/0.4 ML SYRINGE SUBCUT (09:46)
[2020-12-14] MEDS: METFORMIN HCL 500 MG TABLET PO ×2 (09:46→22:12)
--- NOTE | 2020-12-14 10:42 | P.HP_ITS ---
History of Present Illness History of Present Illness Date Patient Seen: 12/14/20 Time Patient Seen: 10:42 Date of Onset of Symptoms: 12/13/20 Chief complaint: ABNORMAL LABS Narrative: Patient is a 75-year-old male who presents with elevated potassium. 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 His potassium initially was 6.7. He does take lisinopril he has had a persistently mildly elevated potassium for some time. He has had no chest pain shortness of breath or other changes. He otherwise is doing well. He states that he has not had any nausea vomiting shortness of breath change in bowel movements or other complaint. And is feeling fine this morning. Past medical history: Type 2 diabetes. Hypertension. Hyperlipidemia. Degenerative arthritis. Hiatal hernia. Coronary artery calcifications with negative treadmill. Pancytopenia with being followed by practice physician. Past surgical history: Appendectomy many years ago. Right hip replacement. Bilateral trigger finger repair Family history dad 99 natural causes, mother 87 no major illnesses. Brother with type 2 diabetes Social history: Lives alone. Never . Never smoker. 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 Patient History Family & Social History Social History: household members none Prior Living Arrangements House Safety & Behavioral: Feels Safe in Current Yes Environment Been Physically Hurt or No Threatened By a Person Suicidal Ideation Description None Suicide Plan Description No Plan Tobacco & Substance use: Smoking Status Never smoker alcohol intake former alcohol intake frequency holiday/special occasion Substance Use Type does not use Meds Home Medications and Allergies Home Medications Medication Instructions Recorded Confirmed Type atorvastatin 10 mg tablet 5 mg PO DAILY 11/28/19 12/13/20 History diclofenac sodium 1 % topical gel 1 % TOPICAL PRN PRN 11/28/19 12/13/20 History (Voltaren) omeprazole 20 mg tablet,delayed 20 mg PO DAILY 11/28/19 12/13/20 History release mecobalamin (vitamin B12) 1,000 1,000 mcg PO DAILY #100 tab 12/13/19 12/13/20 Rx mcg chewable tablet metformin 500 mg tablet 500 mg PO BID 08/06/20 12/13/20 History dulaglutide 1.5 mg/0.5 mL 1.5 mg SUBCUT QWEEK 12/13/20 12/13/20 History subcutaneous pen injector (Trulicity) Allergies Allergy/AdvReac Type Severity Reaction Status Date / Time No Known Drug Allergies Allergy Verified 12/13/20 15:33 Review of Systems Review of Systems Narrative: See above history and physical Exam Vital Signs (past 8 hours): - 12/14/20 05:51 12/14/20 09:33 12/14/20 10:00 Temperature 98 F 97.4 F L Pulse Rate 74 72 Respiratory Rate 18 18 Blood Pressure 119/71 120/73 Pulse Oximetry 98 99 99 Oxygen Delivery Method Room Air Oxygen Flow Rate 9 Narrative Exam Narrative: Alert smiling male lying in bed no acute distress. HEENT exam unremarkable. Neck supple without adenopathy. Lungs are clear. He art regular rate and rhythm. Abdomen is soft positive bowel sounds nontender. Extremities without cyanosis clubbing edema. Neurologic exam is unremarkable. Objective Labs Result Diagrams: 12/13/20 15:41 12/14/20 06:07 Labs: Laboratory Results - last 24 hr 12/13/20 12/13/20 12/13/20 15:41 15:41 18:50 WBC 4.4 L RBC 3.84 L Hgb 10.8 L Hct 33.1 L MCV 86.1 MCH 28.1 MCHC 32.6 RDW 15.0 H Plt Count 108 L Neut % (Auto) 68.4 Lymph % (Auto) 23.2 L [place] % (Auto) 7.1 Eos % (Auto) 0.7 L Baso % (Auto) 0.6 Neut # (Auto) 3000 Lymph # (Auto) 1000 L [place] # (Auto) 300 Eos # (Auto) 0 Baso # (Auto) 0 Sodium 139 Potassium 6.7 H* 6.7 H* Chloride 108 H Carbon Dioxide 23 BUN 32 H Creatinine 1.77 H Estimated GFR 37.9 L BUN/Creatinine Ratio 18.1 Glucose 132 H Calcium 9.6 Total Bilirubin 0.3 AST 27 ALT 26 Alkaline Phosphatase 74 Total Protein 8.0 Albumin 4.7 Globulin 3.3 Albumin/Globulin Ratio 1.4 SARS-CoV-2 (PCR) 12/13/20 12/13/20 12/14/20 19:34 21:06 06:07 WBC RBC Hgb Hct MCV MCH MCHC RDW Plt Count Neut % (Auto) Lymph % (Auto) [place] % (Auto) Eos % (Auto) Baso % (Auto) Neut # (Auto) Lymph # (Auto) [place] # (Auto) Eos # (Auto) Baso # (Auto) Sodium 139 Potassium 5.4 H D 5.6 H Chloride 107 Carbon Dioxide 25 BUN 28 H Creatinine 1.54 H Estimated GFR 44.5 L BUN/Creatinine Ratio 18.2 Glucose 92 Calcium 9.0 Total Bilirubin AST ALT Alkaline Phosphatase Total Protein Albumin Globulin Albumin/Globulin Ratio SARS-CoV-2 (PCR) Negative Assessment & Plan Assessment & Plan narrative: Hyperkalemia. Pretty significantly elevated. Although patient has a longstanding mildly elevated potassium. After insulin and IV glucose and Kayexalate more reasonable at this time. Slightly elevated this morning. Will discontinue PRANAY-inhibitor which may be the cause and follow for today. If stable later this afternoon will discharge home. Patient had no evidence of symptoms no evidence of cardiac changes at this point appears stable. Hypertension. At this point will discontinue PRANAY-inhibitor. This probably was instituted on a combination of both hypertension and diabetes. Patient will potentially be placed on an Arb but blood pressures at this point seems to be doing quite well. Will see how things go through the day. Can follow-up with his PCP if stable she can decide what to do. Type 2 diabetes. Stable at this time. Will continue usual meds. Disposition. Hopefully home this afternoon if stable. Time Spent With Patient Critical Care time: I spent a total of [] minutes of critical care time on this patient's care today; this time is exclusive of procedural time. Quality VTE Deep Vein Thrombosis/Pulmonary Embolism Present on Admission: No
--- NOTE | 2020-12-14 10:59 | CM.DANOTE ---
DCP: Case received, EMR reviewed and met with patient. Introduced self and role. Was able to obtain information from patient regarding his baseline activity level prior to hospitalization. DCP assessment completed with information currently available. Patient is a 75 year old male who admitted yesterday evening to the care of the hospitalist team. PCP: Dr. Burrell. Payer: confirmed: Medicare/[employer] Cross Federal. Patient came to the hospital via private vehicle sent by his provider due to the results of his labs. He was hyperkalemic, potassium level at 6.7. Patient had no symptoms. Met with patient in his room. He is alert and oriented, pleasant. Patient resides in [place] alone, and is independent at his baseline. 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 He indicated, he has had high levels of his potassium before, and has had to try adjusting his diet. P: DCP to continue to follow. Patient should be able to go home when he is deemed medically stable. Natalia Villanueva RN/Reinforcing Iron Worker Helper Discharge Planning/Corporation Lawyer Discharge Assessment Start: 12/14/20 10:58 Freq: Status: Active Protocol: Document 12/14/20 10:58 (Rec: 12/14/20 10:59 [id number]) Discharge Planning Assessment Assigned Contract Engineer Natalia Villanueva RN/Reinforcing Iron Worker Helper Advance Directives? No History Provided By Patient,Medical Record Prior Living Arrangements House Household Members none Type of transporation used prior to Drives own vehicle admit Independent with ADL's Yes Is patient alert and oriented? Yes Caregiver for Another No Barriers to Discharge No Discharge Plan Home Transportation Arrangement Friend, or self. Referrals Initiated None needed Whiteboard Updated in Patient Room with Yes name and ext. # of Contract Engineer Review Status In Process Next Review Type Continued Stay Review
--- NOTE | 2020-12-14 14:51 | PC.NURSE ---
A&Ox4. VSS. Denies pain. B, 113. SCDs applied to BLE, removed for activity. Up in chair now. Call light within reach, bed low.
[2020-12-14 17:36] LABS: BUN Creatinine Ratio 15.3 (6-22); Blood Urea Nitrogen 25 mg/dL (9-20); Calcium 9.2 mg/dL (8.4-10.2); Carbon Dioxide 25 mmol/L (22-32); Chloride 105 mmol/L (98-107); Estimated Glomerular Filt Rate 41.7 mL/min (>60); Glucose 104 mg/dL (80-110); HEMOLYSIS < 15 (0-50); Sodium 138 mmol/L (137-145)
[2020-12-14 17:38] LABS: Potassium 6.1 mmol/L (3.4-5.1)
[2020-12-15] VITALS (9 sets, daily range): BP systolic 107–133; BP diastolic 50–71; PULSE 65–86; RESP 16–18; TEMP 36.2–36.6; O2SAT 97–99
[2020-12-15] MEDS: SODIUM POLYSTYRENE SULFON/SORB 15 GM/60 ML CUP PO ×4 (00:43→17:06)
[2020-12-15 05:40] LABS: Alanine Aminotransferase 27 IU/L (<50); Albumin 4.2 g/dL (3.5-5.0); Albumin Globulin Ratio 1.4 (1.0-2.8); Alkaline Phosphatase 61 U/L (38-126); Aspartate Aminotransferase 26 IU/L (17-59); BUN Creatinine Ratio 20.7 (6-22); Bilirubin Total 0.3 mg/dL (0.2-1.3); Blood Urea Nitrogen 31 mg/dL (9-20); Calcium 9.7 mg/dL (8.4-10.2); Carbon Dioxide 24 mmol/L (22-32); Chloride 106 mmol/L (98-107); Estimated Glomerular Filt Rate 45.9 mL/min (>60); Glucose 112 mg/dL (80-110); HEMOLYSIS < 15 (0-50); Sodium 137 mmol/L (137-145); Total Protein 7.2 g/dL (6.3-8.2)
[2020-12-15] MEDS: PANTOPRAZOLE DR 20 MG TABLET PO (06:15)
[2020-12-15] MEDS: SODIUM CHLORIDE 0.9% FLUSH 10 ML IV ×2 (08:15→20:46)
[2020-12-15] MEDS: ATORVASTATIN 20 MG TABLET 5 MG PO (08:15)
[2020-12-15] MEDS: METFORMIN HCL 500 MG TABLET PO ×2 (08:15→20:46)
--- NOTE | 2020-12-15 11:15 | PM.PN.1 ---
Subjective Subjective Date Patient Seen: 12/15/20 Time Patient Seen: 11:16 Interval history: Patient overall doing well with no significant new changes or complaints. No chest pain no shortness of breath. Working on diet Exam Vital Signs (past 8 hours): - 12/15/20 05:10 12/15/20 07:35 12/15/20 07:51 Temperature 97.9 F 97.1 F L Pulse Rate 78 79 Respiratory Rate 18 18 Blood Pressure 113/70 133/71 Pulse Oximetry 98 98 97 12/15/20 08:05 Temperature Pulse Rate Respiratory Rate Blood Pressure Pulse Oximetry 97 Oxygen Delivery Method Room Air Oxygen Flow Rate 0 Narrative Exam Narrative: Alert male no acute distress Lungs are clear heart regular rate and rhythm Objective Labs Result Diagrams: 12/13/20 15:41 12/15/20 05:03 Labs: Laboratory Results - last 24 hr 12/14/20 12/15/20 17:05 05:03 Sodium 138 137 Potassium 6.1 H 5.0 Chloride 105 106 Carbon Dioxide 25 24 BUN 25 H 31 H Creatinine 1.63 H 1.50 H Estimated GFR 41.7 L 45.9 L BUN/Creatinine Ratio 15.3 20.7 Glucose 104 112 H Calcium 9.2 9.7 Total Bilirubin 0.3 AST 26 ALT 27 Alkaline Phosphatase 61 Total Protein 7.2 Albumin 4.2 Globulin 3.0 Albumin/Globulin Ratio 1.4 PFSH Social History household members: none Smoking Status: Never smoker alcohol intake: former eating out: 4 or more times/week Type(s) of exercise: none Assessment & Plan Assessment & Plan narrative: Hyperkalemia. Did not resolve as was hoped. Wonder still felt related to PRANAY-inhibitor. Reviewed causes really does not fit with much except for renal failure and PRANAY-inhibitor. Will check aldosterone system with long-standing issues. Needs cortisols checked but will need to do in a.m.. Will recheck at 4:00 p.m. today if continued to be normal will consider discharge and follow-up tomorrow for lab tests. Patient understands questions answered. Hypertension. Still doing well off of medication. Will need to adjust as outpatient. Would leave off of PRANAY-inhibitor. Type 2 diabetes. Stable at this time. Will continue usual medicines. Disposition. Same as yesterday. Hopefully discharge later today. Time Spent With Patient Critical Care time: I spent a total of [] minutes of critical care time on this patient's care today; this time is exclusive of procedural time. Quality VTE Deep Vein Thrombosis/Pulmonary Embolism Present on Admission: No
[2020-12-15 15:50] LABS: Blood Urea Nitrogen 33 mg/dL (9-20); Calcium 9.5 mg/dL (8.4-10.2); Carbon Dioxide 25 mmol/L (22-32); Chloride 102 mmol/L (98-107); Estimated Glomerular Filt Rate 45.9 mL/min (>60); Glucose 130 mg/dL (80-110); HEMOLYSIS < 15 (0-50); Potassium 4.9 mmol/L (3.4-5.1); Sodium 138 mmol/L (137-145)
[2020-12-16 01:00] VITALS: BP 110/70; PULSE 89; RESP 16; TEMP 36.3; O2SAT 96
[2020-12-16 05:00] VITALS: BP 101/57; PULSE 87; RESP 18; TEMP 36.2; O2SAT 97
[2020-12-16 05:22] LABS: BUN Creatinine Ratio 25.9 (6-22); Blood Urea Nitrogen 37 mg/dL (9-20); Calcium 8.8 mg/dL (8.4-10.2); Carbon Dioxide 24 mmol/L (22-32); Chloride 104 mmol/L (98-107); Estimated Glomerular Filt Rate 48.5 mL/min (>60); Glucose 114 mg/dL (80-110); HEMOLYSIS < 15 (0-50); Potassium 4.1 mmol/L (3.4-5.1); Sodium 136 mmol/L (137-145)
[2020-12-16 05:57] LABS: Cortisol AM (Before 10AM) 6.25 ug/dL (4.46-22.7)
[2020-12-16] MEDS: PANTOPRAZOLE DR 20 MG TABLET PO (06:01)
[2020-12-16 07:00] VITALS: O2SAT 97
[2020-12-16 07:15] VITALS: O2SAT 97
[2020-12-16 07:54] VITALS: BP 119/60; PULSE 84; RESP 18; TEMP 36.2; O2SAT 97
[2020-12-16] MEDS: METFORMIN HCL 500 MG TABLET PO (08:28)
[2020-12-16] MEDS: ATORVASTATIN 20 MG TABLET 5 MG PO (08:28)
[2020-12-16] MEDS: SODIUM CHLORIDE 0.9% FLUSH 10 ML IV (08:30)
--- NOTE | 2020-12-16 08:38 | P.DS_ITS ---
History of Present Illness History of Present Illness Date Patient Seen: 12/16/20 Time Patient Seen: 08:39 Date of Onset of Symptoms: 12/13/20 Chief complaint: ABNORMAL LABS Discharge Providers Provider Date of admission: 12/13/20 19:48 Discharge Date: 12/16/20 Primary care physician: Bree Burrell MD Discharge provider: Bree Burrell MD Summary Hospital Course Discharge Diagnosis: Hyperkalemia, resolved with stopping lisinopril being treated with Kayexalate and insulin and IV fluids. Stable off of these treatments Acute on chronic renal failure, improved Type 2 diabetes Degenerative joint disease Hospital Course: Patient did labs for his upcoming endocrine appointment. He is found to have hyperkalemia. Was told by the nurse at [facility] to go to the ER. He had no symptoms. Had no change in his medications. He did not have improvement with treatment with insulin, IV fluids in the ER. He was hospitalized treated with Kayexalate and hyperkalemia resolved. It remains stable after stopping Kayexalate and IV fluids. He is discharged home in stable condition with follow-up with me in a week. He sees Endocrine on Wednesday. We will do a potassium level on Wednesday at our clinic. I will see him next Wednesday. He will be discharged home on his outpatient medications septal will be stopping lisinopril which he is on for renal protection. 35 minute spent with patient on discharge Exam Vital Signs (past 8 hours): - 12/16/20 01:00 12/16/20 05:00 12/16/20 07:15 Temperature 97.3 F L 97.1 F L Pulse Rate 89 87 Respiratory Rate 16 18 Blood Pressure 110/70 101/57 L Pulse Oximetry 96 97 97 12/16/20 07:54 Temperature 97.1 F L Pulse Rate 84 Respiratory Rate 18 Blood Pressure 119/60 Pulse Oximetry 97 Oxygen Delivery Method Room Air Oxygen Flow Rate 0 Narrative Exam Narrative: Afebrile vital signs are stable HEENT unremarkable Neck is supple Chest: Clear to auscultation Cor: Regular rate and rhythm without murmur Abdomen benign Extremities unremarkable Objective Labs Result Diagrams: 12/13/20 15:41 12/16/20 05:02 Labs: Laboratory Results - last 24 hr 12/15/20 12/16/20 12/16/20 15:30 05:02 05:02 Sodium 138 136 L Potassium 4.9 4.1 Chloride 102 104 Carbon Dioxide 25 24 BUN 33 H 37 H Creatinine 1.50 H 1.43 H Estimated GFR 45.9 L 48.5 L BUN/Creatinine Ratio 22.0 25.9 H Glucose 130 H 114 H Calcium 9.5 8.8 Cortisol AM Sample 6.25 PFSH Social History household members: none Smoking Status: Never smoker alcohol intake: former eating out: 4 or more times/week Type(s) of exercise: none Discharge Assessment & Plan Assessment and Plan Assessment: Hyperkalemia resolved Type 2 diabetes Acute on chronic renal failure, improved Degenerative joint disease Plan of Treatment: Discharge home off lisinopril Follow-up with Endocrine on Wednesday Repeat potassium on Wednesday Follow-up with me next Wednesday Discharge Plan Discharge Plan Patient Disposition: Home Discharge orders & Medications Prescriptions: Continued atorvastatin 10 mg Tablet 5 mg PO DAILY RF: 0 omeprazole 20 mg Tablet,Delayed Release (Dr/Ec) 20 mg PO DAILY RF: 0 mecobalamin (vitamin B12) 1,000 mcg Tablet,Chewable 1,000 mcg PO DAILY Qty: 100 RF: 3 metformin 500 mg Tablet 500 mg PO BID RF: 0 Trulicity 1.5 mg/0.5 mL Pen Injector 1.5 mg SUBCUT QWEEK RF: 0 Discontinued diclofenac sodium [Voltaren] 1 % Gel 1 % TOPICAL PRN PRN (Reason: arthritis pain) RF: 0 Follow up/Referrals: Bree Burrell MD [Primary Care Provider] - Diet/Activity/Treatments Diet: Carb-consistent/Diabetic Discharge Data Primary Care Provider: Bree Burrell Quality VTE Deep Vein Thrombosis/Pulmonary Embolism Present on Admission: No
--- NOTE | 2020-12-16 10:19 | PC.NURSE ---
Pt awake this a.m., pleasant, A&Ox3. He denies pain. Ambulating independently to BR without dizziness. Pt continues to deny cardiac symptoms. LS CTA, BS +x4. MD Burrell at bedside discussing care and evaluating pt. He is cleared for discharge this a.m. and cleared to drive home, with a follow up in her office this Wednesday. RN reviewed discharge medications, instructions and follow up instructions. Education on hyperkalemia provided. He acknowledges understanding of discharge instructions and plan. RN escorted to his own private vehicle via w/[employer] with all of his belongings at approximately 0950.
[2020-12-20 13:36] LABS: Aldosterone/Renin Activity Rat 0.4 (0.0-30.0); Plama Renin, LC/MS/MS 7.914 ng/mL/hr (0.167-5.380)
== END 2020-12-16 09:50 | disposition home or self-care (01) | DRG 641 ==
LOC: ED 19:48 → AC 20:15
PROVIDERS: Admitting Provider Family Medicine; Emergency Provider Emergency Medicine; PCP Family Medicine; Referring Provider Emergency Medicine; Visit Provider Family Medicine
DX: E87.5 Hyperkalemia (principal); N17.9 Acute kidney failure, unspecified; E11.9 Type 2 diabetes mellitus without complications; E78.5 Hyperlipidemia, unspecified; I10 Essential (primary) hypertension; Z79.84 Long term (current) use of oral hypoglycemic drugs; Z20.822 Contact with and (suspected) exposure to COVID-19
CPT/HCPCS: 36415; 80048; 80053; 82088; 82533; 82962; 84132; 84244; 85025; 87635; 93005; 94760; 96361; 96374; 96375; 96376; 99284; C9803; J1650; J1940; J7613

== ENCOUNTER → 2020-12-17 11:14 | Outpatient (CLI) | payer MEDICARE, BC, SELFPAY ==
[2020-12-13 22:18] VITALS: BMI 30.3
[2020-12-17 12:13] LABS: Add Manual Diff / Slide Review NO; Basophils Absolute Auto 0 /uL (0-100); Basophils Percent Auto 0.2 % (0-2); Eosinophils Absolute Auto 0 /uL (0-450); Eosinophils Percent Auto 0.5 % (2-4); Hematocrit 30.7 % (41-53); Hemoglobin 9.9 g/dL (13.5-17.5); Lymphocytes Absolute Auto 900 /uL (1100-4500); Lymphocytes Percent Auto 22.5 % (25-40); Mean Corpuscular HGB Conc 32.2 % (30-36); Mean Corpuscular Hemoglobin 27.7 PG (26-34); Monocytes Absolute Auto 300 /uL (0-900); Monocytes Percent Auto 8.5 % (3-14); Neutrophils Absolute Auto 2700 /uL (1500-7000); Neutrophils Percent Auto 68.3 % (50-75); Platelet Count 105 X10^3/uL (150-400); Red Blood Cell Count 3.57 X10^6/uL (4.5-5.9); Red Cell Distribution Width 14.8 % (11.6-14.8); White Blood Cell Count 3.9 X10^3/uL (4.5-11.0)
[2020-12-17 12:20] LABS: Hemoglobin A1C% w Est Avg Glu 7.8 % (4.0-6.0)
[2020-12-17 12:36] LABS: Blood Urea Nitrogen 38 mg/dL (9-20); Carbon Dioxide 25 mmol/L (22-32); Chloride 103 mmol/L (98-107); Potassium 4.3 mmol/L (3.4-5.1); Sodium 139 mmol/L (137-145)
[2020-12-17 12:37] LABS: Alanine Aminotransferase 35 IU/L (<50); Albumin 4.4 g/dL (3.5-5.0); Albumin Globulin Ratio 1.5 (1.0-2.8); Alkaline Phosphatase 68 U/L (38-126); Aspartate Aminotransferase 29 IU/L (17-59); BUN Creatinine Ratio 22.9 (6-22); Bilirubin Total 0.4 mg/dL (0.2-1.3); Calcium 9.6 mg/dL (8.4-10.2); Cholesterol 116 mg/dL (140-199); Estimated Glomerular Filt Rate 40.8 mL/min (>60); Glucose 144 mg/dL (80-110); HDL Cholesterol 40 mg/dL (40-60); HEMOLYSIS < 15 (0-50); LDL Cholesterol Calculated 57 mg/dL (<100); Total Protein 7.4 g/dL (6.3-8.2); Triglycerides 93 mg/dL (35-150); VLDL Cholesterol Calculated 19 mg/dL (2-30)
[2020-12-17 13:13] LABS: TSH w/ Reflex to FT4 1.57 uIU/mL (0.47-4.68)
[2020-12-17 16:10] LABS: Creatinine Urine Random 127.7 mg/dL
[2020-12-17 16:15] LABS: Microalbumi Creatinin Ratio Ur 12.5 ug/mg CR (<30); Microalbumin Urine Random 1.6 mg/dL (0-1.6)
== END ==
PROVIDERS: PCP Family Medicine; Referring Provider Family Medicine; Visit Provider Family Medicine
DX: E11.3393 Type 2 diabetes mellitus with moderate nonproliferative diabetic retinopathy without macular edema, bilateral (principal); I25.83 Coronary atherosclerosis due to lipid rich plaque; N18.30 Chronic kidney disease, stage 3 unspecified; E78.5 Hyperlipidemia, unspecified; D64.9 Anemia, unspecified; I10 Essential (primary) hypertension; E11.3293 Type 2 diabetes mellitus with mild nonproliferative diabetic retinopathy without macular edema, bilateral
CPT/HCPCS: 36415; 80053; 80061; 82043; 82570; 83036; 84443; 85025

== ENCOUNTER 2021-07-12 08:43 | Emergency (ER) | payer MEDICARE, BC, SELFPAY ==
[2020-12-13 22:18] VITALS: BMI 30.3
[2021-07-12 08:55] VITALS: BP 160/79; PULSE 82; RESP 18; TEMP 36.3; O2SAT 97; BMI 26.9
--- NOTE | 2021-07-12 09:37 | ED_ITS ---
HPI - General Adult General Chief complaint: Eye Problems Stated complaint: Vision issues Time Seen by Provider: 07/12/21 09:25 Source: patient Mode of arrival: Ambulatory History of Present Illness HPI narrative: Patient is a 75-year-old male. Does have a history of cataracts. Has had cataract surgery in the past. He is also a diabetic. He does see a retina specialist on a regular basis. On Wednesday this week he had an injection in his left eye. Normally his left eye is his good eye. He states that was a steroid injection. He states that normally after the injection he has blurry vision in that eye and some discomfort which did happen after the injection however it does not seem to be going away as fast as what it has been in the past. He contacted the redness specialist yesterday and was told that the provider was out of the office. He was told that they were going to talk to another provider but he never heard back. Last evening started having blurry vision to left eye, photophobia, been watery eye. Denies any headache. No sore throat. No skin rashes. No ear pain. No foreign body sensation. Related Data Home Medications Medication Instructions Recorded Confirmed atorvastatin 10 mg tablet 5 mg PO DAILY 11/28/19 01/28/21 omeprazole 20 mg tablet,delayed 20 mg PO DAILY 11/28/19 01/28/21 release metformin 500 mg tablet 500 mg PO BID 08/06/20 01/28/21 dulaglutide 1.5 mg/0.5 mL 3 mg SUBCUT QWEEK 12/13/20 01/28/21 subcutaneous pen injector (Trulicity) aspirin 81 mg tablet 81 mg PO DAILY 01/28/21 01/28/21 Previous Rx's Medication Instructions Recorded mecobalamin (vitamin B12) 1,000 1,000 mcg PO DAILY #100 tab 12/13/19 mcg chewable tablet Allergies Allergy/AdvReac Type Severity Reaction Status Date / Time No Known Drug Allergies Allergy Verified 12/13/20 15:33 Review of Systems Constitutional Constitutional: Denies fever(s) and Denies headache(s) Eyes Eyes: Reports as per HPI and Reports system reviewed and no additional complaints, except as documented ENT Ears, Nose, Mouth, and Throat: Reports system reviewed and no additional complaints, except as documented, Reports as per HPI and Denies headache(s) Cardiovascular Cardiovascular: Reports system reviewed and no additional complaints, except as documented Respiratory Respiratory: Reports system reviewed and no additional complaints, except as documented Integumentary/Breasts Skin/Breast: Reports system reviewed and no additional complaints, except as documented Neurologic Neurologic: Denies headache(s) Hematologic/Lymphatic Hematologic/Lymphatic: Reports system reviewed and no additional complaints, except as documented On Anticoagulants: No Patient History Medical History Anemia, chronic renal failure Cataracts, bilateral Diabetes Social History household members: none Smoking Status: Never smoker alcohol intake: former eating out: 4 or more times/week Type(s) of exercise: none Smoking Status: Never smoker alcohol intake frequency: holidays/special occasions only Substance Use Type: does not use Exam Initial Vital Signs Initial Vital Signs: Vital Signs Temperature 97.4 F L 07/12/21 08:55 Pulse Rate 82 07/12/21 08:55 Respiratory Rate 18 07/12/21 08:55 Blood Pressure 160/79 H 07/12/21 08:55 Pulse Oximetry 97 07/12/21 08:55 Const General: cooperative, comfortable and well developed [facility] Head: normal to inspection and normocephalic Face and sinus: normal facial exam Eyes Other: Extraocular muscles are intact. Pupils are equal and reactive at 3 mm bilaterally. Conjunctivae his watery on the left and the right but more so on the left. There is no injection. No chemosis. Eyelids unremarkable. Periorbital findings are unremarkable. No signs of cellulitis. Interocular pressure left eye 48, interocular pressure right eye 16. Resp Effort & Inspection: normal respiratory effort Skin General: no rashes or lesions noted Neuro General: patient alert, patient awake and patient oriented x3 Speech: speech normal Gait: normal gait Extrem General: normal to inspection Psych Appearance: grossly normal and well kempt Course Orders Ordered: Brimonidine Tartrate (Brimonidine 0.2% Ophth 5 Ml) 1 drops EYE-LEFT BID Stop: 07/12/21 23:59 Dorzolamide/Timolol (Dorzolamide/Timolol Ophth 10 Ml) 1 drops EYE-LEFT BID Stop: 07/12/21 23:59 Discontinued Medications Brimonidine Tartrate (Brimonidine 0.2% Ophth 5 Ml) 1 drops EYE-LEFT NOW ONE Stop: 07/12/21 10:06 Dorzolamide/Timolol (Dorzolamide/Timolol Ophth 10 Ml) 1 drops EYE-LEFT NOW ONE Stop: 07/12/21 10:07 Last Admin: 07/12/21 10:45 Dose: 1 drops Documented by: Fluorescein Sodium (Fluorescein 1 Mg Strip) 1 mg EYE-BOTH NOW ONE Stop: 07/12/21 09:44 Last Admin: 07/12/21 09:48 Dose: 1 mg Documented by: DAMION Proparacaine HCl (Proparacaine 0.5% Ophth Wendie) 1 drops EYE-LEFT NOW ONE Stop: 07/12/21 09:38 Last Admin: 07/12/21 09:47 Dose: 1 drop Documented by: DAMION Vital Signs Vital signs: Vital Signs - 8 hr 07/12/21 08:55 Temperature 97.4 F L Pulse Rate 82 Respiratory Rate 18 Blood Pressure 160/79 H Pulse Oximetry 97 Medical Decision Making [facility] Narrative Medical decision making narrative: Patient is an increased intra-ocular pressure of his left eye. I did discuss the case with Dr. Murillo for [facility]. This is the group where his current retina is apart. Did discuss his findings today. Dr. Murillo would like to see the patient in the office today. He did recommend drops to decrease the pressure. These were ordered and given to the patient prior to discharge. Patient was informed of the need to proceed directly to the clinic for evaluation. Patient expressed understanding and agreement with this. Discharge Plan Departure Patient Disposition: Home Clinical Impression: Glaucoma (increased eye pressure) Activity Restrictions/Additional Instructions: Dr. Nuñez with [facility] would like to evaluate you in his office today. It is important that you go directly to the office after discharge from the emergency department. Take the eyedrops that you were given here in the emergency department with you. He is going to need to see you in the [place] office. The address is [address] [place] [address] [place] [id number] Nuñez will instruct you on the use of the medications Prescriptions: No Action atorvastatin 10 mg Tablet 5 mg PO DAILY 0RF omeprazole 20 mg Tablet,Delayed Release (Dr/Ec) 20 mg PO DAILY 0RF mecobalamin (vitamin B12) 1,000 mcg Tablet,Chewable 1,000 mcg PO DAILY Qty: 100 3RF metformin 500 mg Tablet 500 mg PO BID 0RF aspirin 81 mg Tablet 81 mg PO DAILY 0RF Trulicity 1.5 mg/0.5 mL Pen Injector 3 mg SUBCUT QWEEK 0RF Referrals: Bree Burrell MD [Primary Care Provider] -
[2021-07-12] MEDS: PROPARACAINE 0.5% OPHTH SOL 1 DROPS EYE-LEFT (09:47)
[2021-07-12] MEDS: FLUORESCEIN 1 MG STRIP EYE-BOTH (09:48)
[2021-07-12] MEDS: DORZOLAMIDE/TIMOLOL OPHTH 10 ML 1 DROPS EYE-LEFT (10:45)
[2021-07-12] MEDS: BRIMONIDINE 0.2% OPHTH 5 ML 1 DROPS EYE-LEFT (10:52)
[2021-07-12 10:57] VITALS: BP 160/70; PULSE 71; RESP 18; O2SAT 98
== END 2021-07-12 11:00 | disposition home or self-care (01) ==
PROVIDERS: Emergency Provider Emergency Medicine; PCP Family Medicine
DX: E11.39 Type 2 diabetes mellitus with other diabetic ophthalmic complication (principal); H42 Glaucoma in diseases classified elsewhere; Z79.84 Long term (current) use of oral hypoglycemic drugs
CPT/HCPCS: 99282

== ENCOUNTER → 2021-07-28 10:00 | Outpatient (CLI) | payer MEDICARE, BC, SELFPAY ==
[2020-12-13 22:18] VITALS: BMI 30.3
== END ==
PROVIDERS: PCP Family Medicine; Referring Provider Orthopaedic Surgery; Visit Provider Orthopaedic Surgery
DX: M17.0 Bilateral primary osteoarthritis of knee (principal); M25.561 Pain in right knee
CPT/HCPCS: 36415; 82495; 83018

== ENCOUNTER → 2021-10-07 11:15 | Outpatient (CLI) | payer MEDICARE, BC, SELFPAY ==
[2020-12-13 22:18] VITALS: BMI 30.3
--- NOTE | 2021-10-07 | DI.MRI.S_ITS ---
PROCEDURE: MR LUMBAR SPINE WO CON INDICATIONS: Radiculopathy, lumbar region TECHNIQUE: Noncontrast sagittal T1 spin echo and T2 fast echo, sagittal STIR, and T2 fast spin echo through the lumbar spine. In cases with scoliosis, additional coronal T2 fast spin echo may be performed. COMPARISON: None. FINDINGS: Image quality: Excellent. Alignment and Curvature: There is 2 mm retrolisthesis of L1 on L2, 4 mm retrolisthesis of L2 on L3 and 3 mm anterolisthesis of L4 on L5. Bone Marrow: Marrow is of normal overall signal. Minimal reactive endplate changes are present L3-4, L4-5. No acute vertebral body compression fractures. Spinal Cord: Conus medullaris terminates at the L1-2 level. Visualized cord demonstrates normal signal and size. Paraspinous Soft Tissues: No paravertebral masses. Discs: Overall moderate desiccation is present throughout the lumbar spine. L1-L2: Minimal disc bulge without spinal stenosis. Minimal left foraminal narrowing with facet and ligamentum flavum hypertrophy. L2-L3: Mild disc bulge without spinal stenosis. Moderate bilateral foraminal narrowing with facet and ligamentum flavum hypertrophy. L3-L4: Mild disc bulge with mild spinal stenosis. Moderate bilateral foraminal narrowing with facet and ligamentum flavum hypertrophy. L4-L5: Mild disc bulge with severe spinal stenosis and canal compression. Left lateral/foraminal disc bulge component is also present. There is severe right and mild left foraminal narrowing with flattening of the exiting right L4 nerve root. L5-S1: Mild disc bulge which is broad-based causing compromise the lateral recesses bilaterally. There is severe bilateral foraminal narrowing with compression of the exiting L5 nerve roots bilaterally. IMPRESSION: Multilevel degenerative changes including disc bulges, spinal stenosis and foraminal narrowing. Spinal stenosis is most severe at L4-5 secondary to disc bulge with contributing affective marked facet and ligamentum flavum arthropathy. Multilevel foraminal narrowing most severe at L4-5 and L5-S1 with compression of exiting L4 and L5 nerve root secondary to facet arthropathy. Dictated by: Deborah Kendall M.D. on 10/07/2021 at 17:35 Approved by: Deborah Kendall M.D. on 10/07/2021 at 17:39
== END ==
PROVIDERS: PCP Family Medicine; Referring Provider Physician Assistant; Visit Provider Physician Assistant
DX: M51.16 Intervertebral disc disorders with radiculopathy, lumbar region (principal); M51.17 Intervertebral disc disorders with radiculopathy, lumbosacral region; M47.26 Other spondylosis with radiculopathy, lumbar region; M48.061 Spinal stenosis, lumbar region without neurogenic claudication; M48.07 Spinal stenosis, lumbosacral region
CPT/HCPCS: 72148

== ENCOUNTER → 2021-10-29 15:12 | Outpatient (CLI) | payer MEDICARE, BC, SELFPAY ==
[2020-12-13 22:18] VITALS: BMI 30.3
[2021-10-29 16:12] LABS: Add Manual Diff / Slide Review NO; Basophils Absolute Auto 0 /uL (0-100); Basophils Percent Auto 0.2 % (0-2); Eosinophils Absolute Auto 0 /uL (0-450); Eosinophils Percent Auto 0.9 % (2-4); Hematocrit 31.3 % (41-53); Hemoglobin 10.5 g/dL (13.5-17.5); Lymphocytes Absolute Auto 1200 /uL (1100-4500); Mean Corpuscular HGB Conc 33.5 % (30-36); Mean Corpuscular Hemoglobin 27.4 PG (26-34); Mean Corpuscular Volume 81.8 fL (80-100); Monocytes Absolute Auto 400 /uL (0-900); Monocytes Percent Auto 9.3 % (3-14); Neutrophils Absolute Auto 2400 /uL (1500-7000); Neutrophils Percent Auto 59.6 % (50-75); Platelet Count 88 X10^3/uL (150-400); Red Blood Cell Count 3.82 X10^6/uL (4.5-5.9); Red Cell Distribution Width 15.9 % (11.6-14.8)
[2021-10-29 16:31] LABS: Alanine Aminotransferase 11 IU/L (<50); Albumin 4.3 g/dL (3.5-5.0); Albumin Globulin Ratio 1.3 (1.0-2.8); Alkaline Phosphatase 81 U/L (38-126); Aspartate Aminotransferase 18 IU/L (17-59); BUN Creatinine Ratio 21.2 (6-22); Bilirubin Total 0.4 mg/dL (0.2-1.3); Blood Urea Nitrogen 33 mg/dL (9-20); Calcium 9.2 mg/dL (8.4-10.2); Carbon Dioxide 22 mmol/L (22-32); Chloride 107 mmol/L (98-107); Estimated Glomerular Filt Rate 46 mL/min (>60); Globulin 3.4 g/dL (1.7-4.1); Glucose 158 mg/dL (80-110); HEMOLYSIS < 15 (0-50); Potassium 4.3 mmol/L (3.4-5.1); Sodium 139 mmol/L (137-145); Total Protein 7.7 g/dL (6.3-8.2)
== END ==
PROVIDERS: PCP Family Medicine; Referring Provider Internal Medicine Medical Oncology; Visit Provider Internal Medicine Medical Oncology
DX: D69.6 Thrombocytopenia, unspecified (principal)
CPT/HCPCS: 36415; 80053; 85025

== ENCOUNTER 2022-04-17 20:33 | Emergency (ER) | payer OTHER, MEDICARE, BC, SELFPAY ==
[2020-12-13 22:18] VITALS: BMI 30.3
[2022-04-17 20:45] VITALS: BP 175/84; PULSE 97; RESP 15; TEMP 36.3; O2SAT 98; BMI 26.1
--- NOTE | 2022-04-17 20:50 | DI.CT.S_ITS ---
PROCEDURE: CT CERVICAL SPINE WO CON INDICATIONS: fall head injury TECHNIQUE: Noncontrast 3 mm thick sections acquired from the skull base to the T4 level. Sagittal and coronal reformats were then constructed. For radiation dose reduction, the following was used: automated exposure control, adjustment of mA and/or kV according to patient size. COMPARISON: None. FINDINGS: Image quality: Excellent. Bones: No fractures or subluxation. There is straightening of the cervical lordosis. Multilevel degenerative disc disease and facet joint arthropathy are demonstrated throughout the cervical spine. Prominent anterior osteophytes are demonstrated within the mid and lower cervical spine. Visualized superior ribs are intact. Soft tissues: Prevertebral soft tissues are normal in thickness. No paravertebral hematomas. No apical pneumothoraces. IMPRESSION: 1. No acute fracture or subluxation. Dictated by: Cnoor Summers M.D. on 04/17/2022 at 21:22 Approved by: Conor Summers M.D. on 04/17/2022 at 21:23
--- NOTE | 2022-04-17 20:50 | DI.CT.S_ITS ---
PROCEDURE: CT HEAD/BRAIN WO CON INDICATIONS: fall head injury TECHNIQUE: Noncontrast 4.5 mm thick angled axial sections acquired from the foramen magnum to the vertex, with coronal and sagittal reformats. For radiation dose reduction, the following was used: automated exposure control, adjustment of mA and/or kV according to patient size. COMPARISON: None. FINDINGS: Image quality: Excellent. CSF spaces: Basal cisterns are patent. No extra-axial fluid collections. There is mild cerebral volume loss, with resultant ventricular and sulcal prominence. Brain: No intracranial hemorrhage, mass, or mass effect. There are subcortical, periventricular and deep white matter hypodensities consistent with mild chronic small vessel ischemic changes. The [place]-white matter junction appears preserved. There is intracranial internal carotid artery atherosclerosis. Skull and face: Calvarium and visualized facial bones appear intact, without suspicious lesions. Sinuses: Visualized sinuses and mastoids are clear. IMPRESSION: 1. No acute intracranial abnormality. Dictated by: Conor Summers M.D. on 04/17/2022 at 21:20 Approved by: Conor Summers M.D. on 04/17/2022 at 21:22
--- NOTE | 2022-04-17 20:52 | DI.RAD.S_ITS ---
PROCEDURE: XR HAND RT MIN 3V INDICATIONS: fall with swelling TECHNIQUE: Three views of the right hand acquired. COMPARISON: None. FINDINGS: Bones: No fractures or dislocations. Carpal bones are normally aligned. No suspicious bony lesions. Soft tissues: No suspicious soft tissue calcifications. IMPRESSION: 1. No fracture or dislocation. Dictated by: Conor Summers M.D. on 04/17/2022 at 22:35 Approved by: Conor Summers M.D. on 04/17/2022 at 22:36
--- NOTE | 2022-04-17 23:35 | ED_ITS ---
HPI - Fall General Chief Complaint: Fall Stated Complaint: Fell, Hit head, No thinners Time Seen by Provider: 04/17/22 21:19 Source: patient Mode of arrival: Ambulatory History of Present Illness HPI Narrative: 77-year-old gentleman with history of diabetes, hypertension, hyperlipidemia, anemia, coronary artery disease. He presents after missing the last step stumbling and hitting his Right borw on the ground sustaining a small lacerat ion. There is no loss of consciousness. Landed on his right hand and there some mild swelling to the right hand. He is not complaining of any other acute injuries. Related Data Home Medications Medication Instructions Recorded Confirmed atorvastatin 10 mg tablet 5 mg PO DAILY 11/28/19 11/04/21 omeprazole 20 mg tablet,delayed 20 mg PO DAILY 11/28/19 11/04/21 release metformin 500 mg tablet 500 mg PO BID 08/06/20 11/04/21 dulaglutide 1.5 mg/0.5 mL 3 mg SUBCUT QWEEK 12/13/20 11/04/21 subcutaneous pen [facility]or ([facility] aspirin 81 mg tablet 81 mg PO DAILY 01/28/21 11/04/21 Previous Rx's Medication Instructions Recorded mecobalamin (vitamin B12) 1,000 1,000 mcg PO DAILY #100 tabs 12/13/19 mcg chewable tablet Allergies Allergy/AdvReac Type Severity Reaction Status Date / Time No Known Drug Allergies Allergy Verified 12/13/20 15:33 Review of Systems Review of Systems Narrative: Remainder of complete review of systems is otherwise unremarkable except for that included in the HPI. Patient History Medical History (Updated 04/17/22 @ 23:57 by Sarah Peck MD) Anemia, chronic renal failure Cataracts, bilateral Diabetes Hyperlipidemia Hypertension Social History household members: none Smoking Status: Never smoker alcohol intake: former eating out: 4 or more times/week Type(s) of exercise: none Smoking Status: Never smoker alcohol intake frequency: holidays/special occasions only Substance Use Type: does not use Exam Initial Vital Signs Initial Vital Signs: Vital Signs Temperature 97.4 F L 04/17/22 20:45 Pulse Rate 97 H 04/17/22 20:45 Respiratory Rate 15 04/17/22 20:45 Blood Pressure 175/84 H 04/17/22 20:45 Pulse Oximetry 98 04/17/22 20:45 Oxygen Delivery Method 04/17/22 20:45 General: Healthy appearing, in no acute distress. Able to give a complete and coherent history. Well-nourished well-developed, GCS of 15 HEENT: Moist mucous membranes, normal sclera with reactive pupils, 1.5 cm laceration to just lateral to the right eye not involving the brow or eyelid Neck: No JVD, supple, no midline cervical spine tenderness Respiratory: Lungs are clear to auscultation, no wheezing no rales no rhonchi. Full and symmetrical air movement Cardiac: Regular rate and rhythm no murmurs no bruits Chest: No tenderness to palpation Abdomen: Soft, nontender, good bowel tones, no flank pain Skin: Warm and dry, no rashes Neurologic: Grossly neurologically intact with no obvious asymmetries or abnormalities Extremities: Right hand with some edema over the dorsum of the hand without significant bruising or bony tenderness otherwise well perfused Psych: Cooperative, appropriate insight and affect Procedures Laceration Repair Right temporal area: Time of procedure: 23:48 Site: face Side (If applicable): right Size (cm): 1.5 Description: irregular Depth: simple, single layer Pre-repair: wound explored and deep structures intact Skin layer closed with: steri-strips (And Dermabond) Course Orders Ordered: ED Orders 04/17/22 20:50 CT cervical spine wo con Stat CT head/brain wo con Stat 04/17/22 20:52 XR hand RT min 3V Stat Vital Signs Vital signs: Vital Signs - 8 hr 04/17/22 20:45 Temperature 97.4 F L Pulse Rate 97 H Respiratory Rate 15 Blood Pressure 175/84 H Pulse Oximetry 98 Oxygen Delivery Method Room Air MDM - Fall MDM Narrative Medical decision making narrative: CC: Fall, landing on his right hand right temporal area landing on the ground small laceration this is a new problem potential for life-threatening abnormalities, unknown prognosis Complicating co-morbidities: Diabetes Corroborating data: Data collected from: patient, Medical records reviewed: Oncology notes Differential considered: Intracranial hemorrhage, cervical spine injury, syncopal episode, laceration to the right side of the face, worse trauma including orbital trauma, extremity injury, fracture to the right hand or wrist. Exam documented above, pertinent findings include: Small fairly superficial laceration in the right temporal area without any underlying bony injury or eye abnormalities. Minor tenderness through the palm of the right hand with minor edema to the dorsum without overt hematoma or bony point tenderness Imaging studies independently reviewed: CT scan of the head shows no intracranial hemorrhage. CT scan of the cervical spine shows no acute injury. 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 He is able to walk without difficulty. The small laceration to the right side of his eye is repaired with Steri-Strips and super glue with nice cosmetic results. With otherwise benign exam no additional workup for lab studies were felt to be required today. Results of CT scans are reviewed with the patient and questions are answered. He is safe for discharge home L&I paper work filled out Disposition: see below, along with detailed discharge instructions that have been reviewed with patient as well as indications for ED re-evaluation and additional outpatient follow up Discharge Plan Departure Patient Disposition: Home Clinical Impression: Fall Qualifiers: Encounter type: initial encounter Qualified Code(s): W19.XXXA - Unspecified fall, initial encounter Face lacerations Qualifiers: Encounter type: initial encounter Qualified Code(s): S01.81XA - Laceration without foreign body of other part of head, initial encounter Hand sprain Qualifiers: Encounter type: initial encounter Laterality: right Qualified Code(s): S63.91XA - Sprain of unspecified part of right wrist and hand, initial encounter Instructions: DI for Laceration Repair-Skin Closure Strips, DI for Hand Pain Activity Restrictions/Additional Instructions: Thank you for coming in tonight Fortunately you had a small cut to your face but no other significant injuries with your fall tonight. The cut on the side of your eye is repaired with Steri-Strips and super glue. This dressing will start to peel off it is okay to snip the edges of the Steri- Strips as they start to lift up. It would be best if you can leave as much of the dressing in place for 5 days. It is okay to take a shower and get the area wet simply padded dry without rubbing at it. We did do CT scans of your head and your neck to make sure there is no intracranial bleeding or occult neck injuries. The scans were very reassuring. Your hand is a bit swollen but the x-rays do not show any fractures. Do expect to be sore and also to places tomorrow after you wake up. Using Tylenol as needed can be helpful for the aches and pains. You might find a hot shower is quite helpful 1st thing tomorrow morning as well. If you find that you are getting worse or develop any new symptoms, please feel free to return to the emergency department for further evaluation. Prescriptions: No Action atorvastatin 10 mg Tablet 5 mg PO DAILY omeprazole 20 mg Tablet,Delayed Release (Dr/Ec) 20 mg PO DAILY mecobalamin (vitamin B12) 1,000 mcg Tablet,Chewable 1,000 mcg PO DAILY Qty: 100 3RF metformin 500 mg Tablet 500 mg PO BID aspirin 81 mg Tablet 81 mg PO DAILY Trulicity 1.5 mg/0.5 mL Pen Injector 3 mg SUBCUT QWEEK Referrals: Bree Burrell MD [Primary Care Provider] - Stand Alone Forms: Patient Portal/API
[2022-04-18 00:02] VITALS: BP 148/69; PULSE 86; O2SAT 98
== END 2022-04-18 00:04 | disposition home or self-care (01) ==
PROVIDERS: Emergency Provider Emergency Medicine; PCP Family Medicine
DX: S01.81XA Laceration without foreign body of other part of head, initial encounter (principal); S63.91XA Sprain of unspecified part of right wrist and hand, initial encounter; W18.30XA Fall on same level, unspecified, initial encounter
CPT/HCPCS: 70450; 72125; 73130; 99283; 99284

== ENCOUNTER 2022-12-19 09:06 | Inpatient (IN) | payer MEDICARE, BC, SELFPAY ==
[2020-12-13 22:18] VITALS: BMI 30.3
[2022-12-19] VITALS (56 sets, daily range): BP systolic 86–142; BP diastolic 49–69; PULSE 64–91; RESP 9–26; TEMP 36.6–38.1; O2SAT 78–100; BMI 26.1; BMI 27.3
--- NOTE | 2022-12-19 | DI.ECHO.S_ITS ---
[facility]---------+ [facility] +---------+ : : [address] : : : : [place] : : : : [id number] : : : : Phone: [phone]---------+ Echocardiogram Report + + :Name: BOOGIE LEAL Study Date: 12/20/2022 Height: 66 in : :[facility] ReadingLocation: Weight: 162 lb: : Gender: Male BSA: 1.8 m2 : :: 1945 Age: 77 yrs BP: 96/56 mmHg: :Reason For Study: Non-ST Wave LA : :Ordering Physician: TANMAY TRIPATHIPerformed By: Debbie Villanueva : :Referring: TANMAY TRIPATHI : + + Interpretation Summary The left ventricle is normal in size. The left ventricular ejection fraction is normal. The ejection fraction is estimated to be 60-65%. No significant change from the previous study. The right ventricle is at the upper limits of normal in size. The right ventricular systolic function is normal. All the valves were not well visualized however no gross significant abnormalities seen. The inferior vena cava was not well visualized. Procedure: A two-dimensional transthoracic echocardiogram with color flow and Doppler was performed. The study quality was technically difficult. Comparison is made with the echocardiogram of 01/23/2020. The patient was in normal sinus rhythm during the exam. Left Ventricle: The left ventricle is normal in size. Left ventricular wall thickness is borderline increased. There is no thrombus. The ejection fraction is estimated to be 60-65%. The left ventricular ejection fraction is normal. There are no focal wall motion abnormalities. Diastolic parameters suggest a relaxation abnormality of the left ventricle, consistent with probable normal filling pressures. Right Ventricle: The right ventricle is at the upper limits of normal in size. The right ventricular systolic function is normal. Atria: The left atrial size is normal. There has been no significant change since the previous study. Right atrial size is normal. There is no Doppler evidence for an interatrial shunt. Mitral Valve: The mitral valve is normal. There is no mitral valve stenosis. There is trace mitral regurgitation. Aortic Valve: The aortic valve is not well visualized. The aortic valve is slightly calcified. There is no hemodynamically significant valvular aortic stenosis. There is trace aortic regurgitation. Tricuspid Valve: The tricuspid valve is normal. There is no tricuspid stenosis. There is trace tricuspid regurgitation. Pulmonary artery pressures cannot be estimated because of the lack of a measurable TR jet velocity. Pulmonic Valve: The pulmonic valve is not well visualized. Great Vessels: The aortic root is normal size. The ascending aorta is normal in size. The pulmonary is not well visualized. The inferior vena cava was not well visualized. Pericardium/ Pleura There is no pericardial effusion. There is no pleural effusion. MMode/2D Measurements & Calculations LVIDd: 4.0 cm LVOT diam: 2.1 cm LVIDs: 2.1 cm Ao root diam: 3.1 cm FS: 47.5 % asc Aorta Diam: 3.1 cm EPSS: 1.0 cm IVSd: 0.90 cm LVPWd: 1.0 cm LV watters. diameter/BSA (cm/m^2): 2.2 LV sys. diameter/BSA (cm/m^2): 1.1 LA A2 area: 10.7 cm2 RA long axis: 4.3 cm LA A4 area: 14.3 cm2 RA area: 12.0 cm2 LA length (vol): 4.7 cm RA vol: 28.3 ml LA vol: 27.7 ml RA : 15.5 ml/m2 LA vol index: 15.1 ml/m2 RVD1 (basal): 3.9 cm LVLs ap4: 6.6 cm LVLd ap2: 7.8 cm TAPSE_phl: 2.1 cm LVLs ap2: 6.7 cm Doppler Measurements & Calculations Ao V2 max: 126.5 cm/sec LVOT Max Gama: 103.0 cm/sec Ao V2 mean: 84.5 cm/sec LV V1 max P.2 mmHg Ao max P.0 mmHg LV V1 VTI: 21.8 cm Ao mean P.0 mmHg REYNALDO(I,D): 3.1 cm2 Ao V2 VTI: 24.6 cm REYNALDO(V,D): 2.8 cm2 sev ratio: 0.89 REYNALDO indexed to BSA (cm^2/m^2): 1.7 MV E max gama: 66.5 cm/sec SV(LVOT): 75.5 ml MV A max gama: 99.0 cm/sec MV E/A: 0.67 Med Peak E' Gama: 6.9 cm/sec E/E' med: 9.7 Lat Peak E' Gama: 6.6 cm/sec E/E' lat: 10.1 E/e' average: 9.9 MV dec time: 0.29 sec AV VR_phl: 0.81 REYNALDO(VTI)/BSA_phl: 1.7 Reading Physician:02:00 PM
--- NOTE | 2022-12-19 09:28 | DI.CT.S_ITS ---
PROCEDURE: CT HEAD/BRAIN WO CON INDICATIONS: fall, weakness TECHNIQUE: Noncontrast 4.5 mm thick angled axial sections acquired from the foramen magnum to the vertex, with coronal and sagittal reformats. For radiation dose reduction, the following was used: automated exposure control, adjustment of mA and/or kV according to patient size. COMPARISON: [facility], CR, XR CHEST 1V, 12/19/2022, 9:35. [facility], CT, CT CERVICAL SPINE WO CON, 12/19/2022, 9:33. [facility], CT, CT HEAD/BRAIN WO CON, 04/17/2022, 21:09. FINDINGS: Image quality: Mild streak artifact can be seen through the skull base. CSF spaces: Basal cisterns are patent. No extra-axial fluid collections. The ventricles are symmetric in size and shape. Brain: No intracranial bleeds or masses. There is cerebral volume loss for age, with resultant ventricular and sulcal prominence. There are periventricular and deep white matter chronic small vessel ischemic changes. There is intracranial internal carotid artery atherosclerosis. Skull and face: Calvarium and visualized facial bones appear intact, without suspicious lesions. Sinuses: Visualized sinuses and mastoids are clear. IMPRESSION: No acute intracranial hemorrhage is seen. No acute intracranial process is seen. Dictated by: Miguel Nicholson M.D. on 12/19/2022 at 9:13 Approved by: Miguel Nicholson M.D. on 12/19/2022 at 9:14
--- NOTE | 2022-12-19 09:28 | DI.RAD.S_ITS ---
PROCEDURE: XR CHEST 1V INDICATIONS: weakness TECHNIQUE: One view of the chest was acquired. COMPARISON: [facility], CT, CT HEAD/BRAIN WO CON, 12/19/2022, 9:33. [facility], CT, CT CERVICAL SPINE WO CON, 12/19/2022, 9:33. FINDINGS: Surgical changes and devices: None. Lungs and pleura: An incomplete inspiratory result is noted, causing a crowded appearance to the lung markings. No focal infiltrates are seen. No pneumothorax or significant pleural effusions are seen. Mediastinum: Mediastinal contours appear normal. Heart size is normal. Bones and chest wall: No suspicious bony lesions. Age-appropriate bony degenerative changes are seen. Overlying soft tissues appear unremarkable. IMPRESSION: Portable chest within normal limits for age. Dictated by: Miguel Nicholson M.D. on 12/19/2022 at 9:12 Approved by: Miguel Nicholson M.D. on 12/19/2022 at 9:12
--- NOTE | 2022-12-19 09:28 | DI.CT.S_ITS ---
PROCEDURE: CT CERVICAL SPINE WO CON INDICATIONS: fall TECHNIQUE: Noncontrast 3 mm thick sections acquired from the skull base to the T4 level. Sagittal and coronal reformats were then constructed. For radiation dose reduction, the following was used: automated exposure control, adjustment of mA and/or kV according to patient size. COMPARISON: [facility], CR, XR CHEST 1V, 12/19/2022, 9:35. [facility], CT, CT HEAD/BRAIN WO CON, 12/19/2022, 9:33. [facility], CT, CT CERVICAL SPINE WO CON, 04/17/2022, 21:09. FINDINGS: Image quality: Excellent. Bones: No fractures or dislocations. Visualized superior ribs are intact. Focal degenerative change is seen involving the C1-C2 interface anteriorly. Mild disc space narrowing can be seen throughout the cervical spine. Prominent bridging anterior osteophytes can be seen C4 through C7, with milder bridging anterior osteophytes seen elsewhere. Posteriorly directed endplate osteophytes narrowing can be seen throughout the cervical spine. directed endplate osteophytes are seen inferiorly. Soft tissues: Prevertebral soft tissues are normal in thickness. No paravertebral hematomas. No apical pneumothoraces. IMPRESSION: Negative for fracture. Prominent lower cervical spine degenerative changes are seen. Dictated by: Miguel Nicholson M.D. on 12/19/2022 at 9:14 Approved by: Miguel Nicholson M.D. on 12/19/2022 at 9:17
[2022-12-19 09:45] LABS: Add Manual Diff / Slide Review YES; Hematocrit 34.1 % (41-53); Hemoglobin 11.5 g/dL (13.5-17.5); Mean Corpuscular HGB Conc 33.7 % (30-36); Mean Corpuscular Hemoglobin 28.6 PG (26-34); Mean Corpuscular Volume 84.8 fL (80-100); Platelet Count 40 X10^3/uL (150-400); Red Blood Cell Count 4.01 X10^6/uL (4.5-5.9); Red Cell Distribution Width 15.8 % (11.6-14.8); White Blood Cell Count 3.5 X10^3/uL (4.5-11.0)
[2022-12-19 09:55] LABS: Lactate (Lactic Acid) 1.5 mmol/L (0.7-2.1); Neutrophils Absolute Manual 2870 /uL (3000-5900); RBC Morphology Normal Morphology; Total Cells Counted 50
[2022-12-19 09:56] LABS: Alanine Aminotransferase 55 IU/L (<50); Albumin 4.5 g/dL (3.5-5.0); Albumin Globulin Ratio 1.4 (1.0-2.8); Alkaline Phosphatase 57 U/L (38-126); Aspartate Aminotransferase 172 IU/L (17-59); BUN Creatinine Ratio 18.4 (6-22); Bilirubin Total 0.8 mg/dL (0.2-1.3); Blood Urea Nitrogen 36 mg/dL (9-20); Calcium 9.5 mg/dL (8.4-10.2); Carbon Dioxide 24 mmol/L (22-32); Chloride 103 mmol/L (98-107); Estimated Glomerular Filt Rate 35 mL/min (>60); Globulin 3.3 g/dL (1.7-4.1); Glucose 168 mg/dL (80-110); HEMOLYSIS < 15 (0-50); Lipase 208 U/L (23-300); Magnesium 1.5 mg/dL (1.6-2.3); Potassium 4.1 mmol/L (3.4-5.1); Sodium 136 mmol/L (137-145); Total Protein 7.8 g/dL (6.3-8.2)
[2022-12-19 10:08] LABS: NT-proBNP (BNP-Adult 18+) 1380 pg/mL (<450)
[2022-12-19 10:09] LABS: Troponin I 0.965 ng/mL (0.01-0.034)
[2022-12-19 10:13] LABS: Procalcitonin 0.64 ng/mL (<0.5)
--- NOTE | 2022-12-19 10:15 | ED.FALL ---
[facility] - Fall General Chief Complaint: Fall Stated Complaint: fell T-2 and today Time Seen by Provider: 12/19/22 09:18 Source: patient Mode of arrival: Ambulatory History of Present Illness HPI Narrative: 77-year-old gentleman with a history of diabetes and hyperlipidemia presents complaining of persistent weakness. On the he fell while he was at work as he was bending forward hit his head was seen at [facility] felt better by the time he got there and declined any additional workup including imaging studies. Today he fell trying to get back into bed from the bathroom and ended up lying with his right shoulder under his bed for a number of hours until he could crawl to his phone to ask for some help. He finds that he is able to crawl but is not able to get up off the floor or stand up. He complains of overall weakness without localizing symptoms. He is not complaining of headache. He does have a healing abrasion over his forehead and a large contusion over the right side of his forehead and right eye. He states he has not been having chest pain, shortness of breath, dyspnea, any fevers, chills, abdominal pain. Related Data Home Medications Medication Instructions Recorded Confirmed atorvastatin 10 mg tablet 5 mg PO DAILY 11/28/19 12/19/22 omeprazole 20 mg tablet,delayed 20 mg PO DAILY 11/28/19 12/19/22 release metformin 500 mg tablet 500 mg PO BID 08/06/20 12/19/22 dulaglutide 1.5 mg/0.5 mL 3 mg SUBCUT QWEEK 12/13/20 12/19/22 subcutaneous pen injector (Trulicity) brimonidine 0.15 % eye drops 1 drp EYE-LEFT BID 12/19/22 12/19/22 dorzolamide 22.3 mg-timolol 6.8 1 drp EYE-LEFT BID 12/19/22 12/19/22 mg/mL eye drops Previous Rx's Medication Instructions Recorded mecobalamin (vitamin B12) 1,000 1,000 mcg PO DAILY #100 tabs 12/13/19 mcg chewable tablet Allergies Allergy/AdvReac Type Severity Reaction Status Date / Time No Known Drug Allergies Allergy Verified 12/19/22 09:10 Review of Systems Review of Systems Narrative: Pertinent positive and negative findings as per HPI Patient History Medical History Hyperlipidemia Hypertension Cataracts, bilateral Diabetes Anemia, chronic renal failure Social History household members: none Smoking Status: Never smoker alcohol intake: former eating out: 4 or more times/week Type(s) of exercise: none Smoking Status: Never smoker alcohol intake frequency: holidays/special occasions only Substance Use Type: does not use Exam Initial Vital Signs Initial Vital Signs: Vital Signs Temperature 100.5 F H 12/19/22 09:10 Pulse Rate 91 H 12/19/22 09:10 Respiratory Rate 18 12/19/22 09:10 Blood Pressure 139/64 12/19/22 09:10 Pulse Oximetry 99 12/19/22 09:10 Oxygen Delivery Method Room Air 12/19/22 09:10 General: Chronically ill-appearing, globally weak but in no acute distress. Able to give a complete and coherent history. Well-nourished well-developed HEENT: Moist mucous membranes, normal sclera with reactive pupils, he has a abrasion over the left part of his forehead and a large contusion over the right part of his forehead and eye. Both of these look consistent with injury at least 48 hours ago. Neck: No JVD, supple, no midline cervical spine tenderness Respiratory: Lungs are clear to auscultation, no wheezing no rales no rhonchi. Full and symmetrical air movement Cardiac: Regular rate and rhythm no murmurs no bruits Abdomen: Soft, nontender, good bowel tones, no flank pain Skin: Warm and dry, some abrasions over his abdomen where he crawled along the floor today to get to his phone. Neurologic: Globally weak but otherwise Grossly neurologically intact with no obvious asymmetries or abnormalities. NIH=0 Extremities: No trauma, well perfused Psych: Cooperative, appropriate insight and affect Course Orders Ordered: ED Orders 12/21/22 05:00 Hemoglobin and Hematocrit DAILY Platelet Count DAILY Acetaminophen (Acetaminophen 325 Mg Tablet) 650 mg PO Q6H PRN PRN Reason: Fever/Mild Pain (1-3) Aspirin (Aspirin Ec 325 Mg Tablet) 325 mg PO DAILY [facility] Last Admin: 12/20/22 08:34 Dose: 325 mg Documented By: LUCIANO Atorvastatin Calcium (Atorvastatin 20 Mg Tablet) 10 mg PO DAILY [facility] Last Admin: 12/20/22 08:34 Dose: 10 mg Documented By: LUCIANO Dextrose (D10w) 100 mls @ 1,200 mls/hr IV PRN PRN PRN Reason: Hypoglycemia Lactated Ringer's (Lactated Ringers) 1,000 mls @ 200 mls/hr IV CONT [facility] Last Admin: 12/20/22 07:02 Dose: 200 mls/hr Documented By: Infusion: 12/20/22 07:02 Dose: Infused Documented By: Admin: 12/20/22 02:05 Dose: 200 mls/hr Documented By: Infusion: 12/20/22 01:45 Dose: Infused Documented By: Admin: 12/19/22 20:45 Dose: 200 mls/hr Documented By: Infusion: 12/19/22 20:45 Dose: Infused Documented By: Infusion: 12/19/22 17:00 Dose: 200 mls/hr Documented By: Admin: 12/19/22 15:55 Dose: 125 mls/hr Documented By: LUCIANO Insulin Glargine (Insulin Glargine 100 Unit/Ml 3ml Pen) 20 unit SUBCUT 2100 [facility] Last Admin: 12/19/22 21:23 Dose: 20 unit Documented By: MARLI Co-signed By: JODI Insulin Human Lispro (Insulin Lispro 100 Unit/Ml 3ml Vial) 0 unit SUBCUT ACHS [facility]; Protocol Last Admin: 12/20/22 08:31 Dose: Not Given Documented By: Admin: 12/19/22 21:17 Dose: Not Given Documented By: Admin: 12/19/22 17:47 Dose: Not Given Documented By: LUCIANO Metoprolol Succinate (Metoprolol Er 25 Mg Tablet) 25 mg PO DAILY [facility] Last Admin: 12/20/22 08:35 Dose: 25 mg Documented By: Admin: 12/19/22 15:45 Dose: 25 mg Documented By: ULCIANO Morphine Sulfate (Morphine 2 Mg/Ml Inj) 2 mg IV Q5MIN PRN PRN Reason: Chest Pain Naloxone HCl (Naloxone 0.4 Mg/Ml Vial) 0.2 mg IV Q2MIN PRN PRN Reason: Opiate Reversal Nitroglycerin (Nitroglycerin 0.4 Mg Sl Tab) 0.4 mg SL [id number] PRN PRN Reason: Chest Pain Oxycodone HCl (Oxycodone Ir 5 Mg Tablet) 5 mg PO Q3H PRN PRN Reason: Pain, Moderate (4-6) Pantoprazole Sodium (Pantoprazole Dr 20 Mg Tablet) 20 mg PO 0600 [facility] Last Admin: 12/20/22 05:50 Dose: 20 mg Documented By: MARLI Discontinued Medications Aspirin (Aspirin 81 Mg Chew Tab) 324 mg PO NOW ONE Stop: 12/19/22 10:41 Last Admin: 12/19/22 12:28 Dose: 324 mg Documented By: APPLE Heparin Sodium (Porcine) (Heparin 5,000 Unit/Ml Vial) 4,000 unit IV NOW ONE Stop: 12/19/22 13:02 Last Admin: 12/19/22 15:01 Dose: Not Given Documented By: LUCIANO Heparin Sodium (Porcine) (Heparin 5,000 Unit/Ml Vial) 5,000 unit SUBCUT BID [facility] Sodium Chloride (Normal Saline 0.9%) 1,000 mls @ 1,000 mls/hr IV BOLUS ONE Stop: 12/19/22 12:45 Last Infusion: 12/19/22 13:06 Dose: Infused Documented By: Admin: 12/19/22 11:51 Dose: 1,000 mls/hr Documented By: APPLE Heparin Sodium/Dextrose (Heparin Drip) 25,000 unit in 500 mls @ 17.636 mls/hr IV CONT [facility]; Protocol Last Admin: 12/19/22 15:02 Dose: Not Given Documented By: LUCIANO Lactated Ringer's (Lactated Ringers) 1,000 mls @ 100 mls/hr IV CONT [facility] Stop: 12/20/22 08:00 Last Infusion: 12/19/22 15:55 Dose: 0 mls/hr Documented By: Admin: 12/19/22 15:07 Dose: 100 mls/hr Documented By: LUCIANO Furosemide 80 mg/ Sodium (Chloride) 58 mls @ 116 mls/hr IV NOW ONE Stop: 12/19/22 20:26 Last Admin: 12/19/22 21:01 Dose: 116 mls/hr Documented By: MARLI Sodium Chloride (Normal Saline 0.9%) 500 mls @ 500 mls/hr IV BOLUS ONE Stop: 12/19/22 21:27 Last Admin: 12/19/22 20:45 Dose: 500 mls/hr Documented By: MARLI Magnesium Chloride (Magnesium Chloride 64 Mg Tablet) 128 mg PO NOW ONE Stop: 12/20/22 08:01 Last Admin: 12/20/22 08:34 Dose: 128 mg Documented By: CW Vital Signs Vital signs: Vital Signs - 8 hr 12/19/22 09:10 12/19/22 09:22 12/19/22 09:24 Temperature 100.5 F H Pulse Rate 91 H 90 85 Respiratory Rate 18 24 Blood Pressure 139/64 Pulse Oximetry 99 94 97 Oxygen Delivery Method Room Air 12/19/22 09:24 12/19/22 09:30 12/19/22 09:47 Temperature Pulse Rate 84 86 Respiratory Rate 26 H Blood Pressure 142/65 H Pulse Oximetry 97 96 Oxygen Delivery Method 12/19/22 10:00 12/19/22 10:01 12/19/22 10:15 Temperature 98.0 F Pulse Rate 82 79 Respiratory Rate 17 Blood Pressure Pulse Oximetry 98 97 Oxygen Delivery Method 12/19/22 10:30 12/19/22 10:45 12/19/22 11:00 Temperature Pulse Rate 81 76 75 Respiratory Rate 19 14 9 L Blood Pressure Pulse Oximetry 95 93 94 Oxygen Delivery Method 12/19/22 11:03 12/19/22 11:03 12/19/22 11:13 Temperature Pulse Rate 80 74 Respiratory Rate 16 17 Blood Pressure 96/52 L Pulse Oximetry 98 96 Oxygen Delivery Method Room Air 12/19/22 11:13 12/19/22 11:15 12/19/22 11:15 Temperature Pulse Rate 73 Respiratory Rate 9 L Blood Pressure 117/57 L 107/55 L Pulse Oximetry 97 Oxygen Delivery Method 12/19/22 11:30 12/19/22 11:30 12/19/22 11:45 Temperature Pulse Rate 78 78 Respiratory Rate 19 22 Blood Pressure 100/53 L Pulse Oximetry 100 98 Oxygen Delivery Method 12/19/22 11:45 12/19/22 12:00 12/19/22 12:00 Temperature Pulse Rate 72 Respiratory Rate 13 Blood Pressure 86/49 L 101/54 L Pulse Oximetry 99 Oxygen Delivery Method Room Air 12/19/22 12:15 12/19/22 12:16 12/19/22 12:16 Temperature Pulse Rate 74 74 Respiratory Rate 15 19 Blood Pressure 104/51 L Pulse Oximetry 98 97 Oxygen Delivery Method 12/19/22 12:45 12/19/22 12:46 12/19/22 12:46 Temperature Pulse Rate 81 86 Respiratory Rate 21 19 Blood Pressure 132/62 Pulse Oximetry 98 99 Oxygen Delivery Method Room Air MDM - Fall Lab Data 12/20/22 05:44 12/20/22 05:44 Labs: Lab Results 12/19/22 12/19/22 12/19/22 Range/Units 09:30 11:02 11:30 WBC 3.5 L (4.5-11.0) X10^3/uL RBC 4.01 L (4.5-5.9) X10^6/uL Hgb 11.5 L (13.5-17.5) g/dL Hct 34.1 L (41-53) % MCV 84.8 (80-100) fL MCH 28.6 (26-34) PG MCHC 33.7 (30-36) % RDW 15.8 H (11.6-14.8) % Plt Count 40 L (150-400) X10^3/uL Neut % (Auto) Not Reportable Lymph % (Auto) Not Reportable Cotton % (Auto) Not Reportable Eos % (Auto) Not Reportable Baso % (Auto) Not Reportable Lymph # (Auto) Not Reportable Cotton # (Auto) Not Reportable Baso # (Auto) Not Reportable Total Counted 50 Seg Neutrophils % 68.0 (38-70) % Band Neutrophils % 14.0 H (3-7) % Lymphocytes % (Manual) 12.0 L (25-45) % Monocytes % (Manual) 6.0 (2-11) % Neutrophils # (Manual) 2870 L (3766-2035) /uL RBC Morphology Normal morphology Sodium 136 L (137-145) mmol/L Potassium 4.1 (3.4-5.1) mmol/L Chloride 103 (98-107) mmol/L Carbon Dioxide 24 (22-32) mmol/L BUN 36 H (9-20) mg/dL Creatinine 1.96 H (0.66-1.25) mg/dL Estimated GFR 35 L (>60) mL/min BUN/Creatinine Ratio 18.4 (6-22) Glucose 168 H (80-110) mg/dL Lactate 1.5 (0.7-2.1) mmol/L Calcium 9.5 (8.4-10.2) mg/dL Magnesium 1.5 L (1.6-2.3) mg/dL Total Bilirubin 0.8 (0.2-1.3) mg/dL AST 172 H (17-59) IU/L ALT 55 H (<50) IU/L Alkaline Phosphatase 57 (38-126) U/L Troponin I 0.965 H* 0.792 H* (0.01-0.034) ng/mL NT-Pro-B Natriuret Pep 1380 H (<450) pg/mL Total Protein 7.8 (6.3-8.2) g/dL Albumin 4.5 (3.5-5.0) g/dL Globulin 3.3 (1.7-4.1) g/dL Albumin/Globulin Ratio 1.4 (1.0-2.8) Lipase 208 (23-300) U/L Vitamin B12 984 H (239-931) pg/mL Procalcitonin 0.64 H (<0.5) ng/mL TSH 1.06 (0.47-4.68) uIU/mL Urine Color Urine Appearance Urine pH (4.5-8.0) Ur Specific Ulysses (1.000-1.035) Urine Protein (Negative) Urine Glucose (UA) (Negative) g/dL Urine Ketones (NEGATIVE) Urine Occult Blood (Negative) Urine Nitrate (Negative) Urine Bilirubin (NEGATIVE) Urine Urobilinogen (0.2) E.U./dL Ur Leukocyte Esterase (NEGATIVE) Urine RBC (0-5/HPF) Urine WBC (0-5/HPF) Ur Squamous Epith Cells (0-5/HPF) Amorphous Sediment Urine Bacteria (None) Granular Casts (None) Urine Mucus (Negative) Ur Culture Indicated? Chlamy pneumoniae PCR Not detected (Not Detect) Adenovirus (PCR) Not detected (Not Detect) B.parapertussis DNA PCR Not detected (Not Detecte) Coronavirus OC43 (PCR) Not detected (Not Detect) Coronavirus HKU1 (PCR) Not detected (Not Detect) Coronavirus 229E (PCR) Not detected (Not Detect) SARS-CoV-2 (PCR) Detected H (Not Detecte) Coronavirus NL63 (PCR) Not detected (Not Detect) Human Metapneumovir PCR Not detected (Not Detect) Influenza A (PCR) Not detected (Not Detect) Influenza Type A (PCR) Not detected (Not Detect) Influenza Type B (PCR) Not detected (Not Detect) M. pneumoniae (PCR) Not detected (Not Detect) Parainfluenza 1 (PCR) Not detected (Not Detect) Parainfluenza 2 (PCR) Not detected (Not Detect) Parainfluenza 3 (PCR) Not detected (Not Detect) Parainfluenza 4 (PCR) Not detected (Not Detect) RSV (PCR) Not detected (Not Detect) Entero/Rhino (PCR) Not detected (Not Detect) 12/19/22 Range/Units 12:30 WBC (4.5-11.0) X10^3/uL RBC (4.5-5.9) X10^6/uL Hgb (13.5-17.5) g/dL Hct (41-53) % MCV (80-100) fL MCH (26-34) PG MCHC (30-36) % RDW (11.6-14.8) % Plt Count (150-400) X10^3/uL Neut % (Auto) Lymph % (Auto) Cotton % (Auto) Eos % (Auto) Baso % (Auto) Lymph # (Auto) Cotton # (Auto) Baso # (Auto) Total Counted Seg Neutrophils % (38-70) % Band Neutrophils % (3-7) % Lymphocytes % (Manual) (25-45) % Monocytes % (Manual) (2-11) % Neutrophils # (Manual) (3511-2613) /uL RBC Morphology Sodium (137-145) mmol/L Potassium (3.4-5.1) mmol/L Chloride (98-107) mmol/L Carbon Dioxide (22-32) mmol/L BUN (9-20) mg/dL Creatinine (0.66-1.25) mg/dL Estimated GFR (>60) mL/min BUN/Creatinine Ratio (6-22) Glucose (80-110) mg/dL Lactate (0.7-2.1) mmol/L Calcium (8.4-10.2) mg/dL Magnesium (1.6-2.3) mg/dL Total Bilirubin (0.2-1.3) mg/dL AST (17-59) IU/L ALT (<50) IU/L Alkaline Phosphatase (38-126) U/L Troponin I (0.01-0.034) ng/mL NT-Pro-B Natriuret Pep (<450) pg/mL Total Protein (6.3-8.2) g/dL Albumin (3.5-5.0) g/dL Globulin (1.7-4.1) g/dL Albumin/Globulin Ratio (1.0-2.8) Lipase (23-300) U/L Vitamin B12 (239-931) pg/mL Procalcitonin (<0.5) ng/mL TSH (0.47-4.68) uIU/mL Urine Color Yellow Urine Appearance Clear Urine pH 5.0 (4.5-8.0) Ur Specific Ulysses >=1.030 H (1.000-1.035) Urine Protein 2+ H (Negative) Urine Glucose (UA) Negative (Negative) g/dL Urine Ketones Negative (NEGATIVE) Urine Occult Blood 3+ H (Negative) Urine Nitrate Negative (Negative) Urine Bilirubin Negative (NEGATIVE) Urine Urobilinogen 1.0 (0.2) E.U./dL Ur Leukocyte Esterase Negative (NEGATIVE) Urine RBC None seen (0-5/HPF) Urine WBC None seen (0-5/HPF) Ur Squamous Epith Cells None seen (0-5/HPF) Amorphous Sediment 1+ Urine Bacteria None seen (None) Granular Casts 1-5/lpf (None) Urine Mucus 1+ H (Negative) Ur Culture Indicated? Cult not indicated Chlamy pneumoniae PCR (Not Detect) Adenovirus (PCR) (Not Detect) B.parapertussis DNA PCR (Not Detecte) Coronavirus OC43 (PCR) (Not Detect) Coronavirus HKU1 (PCR) (Not Detect) Coronavirus 229E (PCR) (Not Detect) SARS-CoV-2 (PCR) (Not Detecte) Coronavirus NL63 (PCR) (Not Detect) Human Metapneumovir PCR (Not Detect) Influenza A (PCR) (Not Detect) Influenza Type A (PCR) (Not Detect) Influenza Type B (PCR) (Not Detect) M. pneumoniae (PCR) (Not Detect) Parainfluenza 1 (PCR) (Not Detect) Parainfluenza 2 (PCR) (Not Detect) Parainfluenza 3 (PCR) (Not Detect) Parainfluenza 4 (PCR) (Not Detect) RSV (PCR) (Not Detect) Entero/Rhino (PCR) (Not Detect) Point of Care Testing Glucose POC 139 MDM Narrative Medical decision making narrative: CC: Weakness with 2 falls in the last 48 hours no localizing symptoms Complicating co-morbidities: Diabetes, reflux, hyperlipidemia Data collected from: patient, Social determinants of health that may influence the patients condition: Patient does not particularly like doctors and tries to avoid them for the most part Medical records reviewed: [facility] from [facility] for ER visit on December 17 are obtained and reviewed. 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 Differential considered: Viral syndrome, intracranial bleed, acute coronary syndrome Exam documented above, pertinent findings include: Globally weak, bruising over the right eye alert and appropriate otherwise no localizing neurologic symptoms Lab Test results independently reviewed as above. Pertinent findings: CBC shows chronic pancytopenia platelets at 40 relatively unchanged Metabolic panel shows worsening renal function with a creatinine bump from 1.3-1.96. Slight increase in AST and ALT. Troponin elevated at 0.965 ProBNP elevated at 1380 Procalcitonin elevated at 0.64 Independently reviewed EKG sinus rhythm at a rate of 79, normal intervals, normal axis, no acute ischemic changes Imaging studies independently reviewed: CT head shows no intracranial hemorrhage CT cervical spine shows no obvious fractures Chest x-ray shows normal heart size and mediastinal contours. Mild crowded appearance of lung markings maybe consistent with volume overload otherwise unremarkable no effusions Consultations: Reviewed with Cardiology who recommended 48 hours of heparin as COVID is a pro thrombogenic state. Transfer for cardiac catheterization is not required at this point. He did recommend an echocardiogram with this hospital stay Treatments: Fluids, heparin is started Re-evaluations: Findings reviewed with patient. No evidence of intracranial hemorrhage however I am concerned that he has had a NSTEMI may be developing congestive heart failure would certainly benefit from hospitalization to further evaluate his heart and trend blood work. Possibility of worsening of his IgM MGUS is entertained. Patient is willing to stay in the hospital at this time. Care is reviewed with Dr. Liang, on-call for Dr. Burrell. Patient will be admitted to their service. He is aware of findings. mips: Reasons: Patient is 65 or older Patient has thrombocytopenia Discharge Plan Departure Patient Disposition: Admitted As Inpatient Clinical Impression: Non-ST elevation [place] (NSTEMI), COVID, Weakness Admit Date/Time: 12/19/22 13:05 Admit Provider: Duran Liang
[2022-12-19] MEDS: SODIUM CHLORIDE 0.9% 1,000 ML 1000 ML IV (11:51)
[2022-12-19 12:10] LABS: Troponin I 0.792 ng/mL (0.01-0.034)
[2022-12-19] MEDS: ASPIRIN 81 MG CHEW TAB 324 MG PO (12:28)
[2022-12-19 12:29] LABS: Adenovirus Not Detected (Not Detect); B. parapertussis Not Detected (Not Detecte); Bordetella pertussis Not Detected (Not Detect); Chlamydophila pneumoniae Not Detected (Not Detect); Coronavirus 229E Not Detected (Not Detect); Coronavirus HKU1 Not Detected (Not Detect); Coronavirus NL 63 Not Detected (Not Detect); Coronavirus OC43 Not Detected (Not Detect); Human Metapneumovirus Not Detected (Not Detect); Human Rhinovirus/Enterovirus Not Detected (Not Detect); Influenza A Not Detected (Not Detect); Influenza A(No subj detected) Not Detected (Not Detect); Influenza B Not Detected (Not Detect); Mycoplasma pneumoniae Not Detected (Not Detect); Parainfluenza Virus 1 Not Detected (Not Detect); Parainfluenza Virus 2 Not Detected (Not Detect); Parainfluenza Virus 3 Not Detected (Not Detect); Parainfluenza Virus 4 Not Detected (Not Detect); Respiratory Syncytial Virus Not Detected (Not Detect); SARS- CoV-2 Detected (Not Detecte)
[2022-12-19 12:52] LABS: Appearance Urine UA CLEAR; Bilirubin Urine UA NEGATIVE (NEGATIVE); Color Urine UA YELLOW; Glucose Urine UA NEGATIVE (Negative); Ketones Urine UA NEGATIVE (NEGATIVE); Leukocyte Esterase Urine UA NEGATIVE (NEGATIVE); Nitrite Urine UA NEGATIVE (Negative); Occult Blood Urine UA 3+ (Negative); Protein Urine UA 2+ (Negative); Specific Gravity Urine UA >=1.030 (1.000-1.035)
[2022-12-19 13:04] LABS: Amorphous Sediment Urine 1+; Bacteria Urine None Seen; Granular Casts Urine 1-5/LPF; RBC Urine None Seen (0-5/HPF); Squamous Epithelial Cell Urine None Seen (0-5/HPF); WBC Urine None Seen (0-5/HPF)
[2022-12-19 13:05] LABS: Culture Indicated Urine Cult Not Indicated; Mucus Urine 1+ (Negative)
--- NOTE | 2022-12-19 13:46 | PC.NURSE ---
Pt w/ noted swing so of oxygen saturation on room air to 82-84% w/ immediate recovery to 98%. States he does not have sleep apena but occurs when resting w/ eyes closed. Denies shortness of breath.
--- NOTE | 2022-12-19 14:35 | P.HP_ITS ---
History of Present Illness History of Present Illness Date Patient Seen: 12/19/22 Time Patient Seen: 14:35 Chief complaint: fell T-2 and today Narrative: 77-year-old male with a history of chronic renal failure diabetes hypertension hyperlipidemia MUGUS anemia of chronic disease due to renal failure and thrombocytopenia. 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 He has been working more than usual pretty much full-time lately. Over the last 48 hours he became a little bit more weak. Patient fell down 2 days ago. He was down for an hours so was finally able to get back up. He says when he falls he usually does not have a lot of strength in his unable to get up but he was able to do that this time. Patient fell this morning in the bathroom. Thinks he was down for 5 or 6 hours. He crawled out of the bathroom into his bedroom was able to get to his phone and called his daughter who brought him in for evaluation. In the last week or so patient has not had any episodes of chest pain lightheadedness dizziness fevers or chills no nausea or vomiting. Patient has had no cough shortness of breath. Other than feeling weak says he has no appetite. No headache. Patient has some bruising to the right side of his face and abrasion on his forehead and abdomen. He thinks he got those when he was trying to crawl into his bedroom to call his daughter. In the emergency department patient had evaluation with laboratory tests which were reviewed chest x-ray CT scan of head and neck and EKG. [facility] Medical History Hyperlipidemia Hypertension Cataracts, bilateral Diabetes Anemia, chronic renal failure Social History household members: none Smoking Status: Never smoker alcohol intake: former eating out: 4 or more times/week Type(s) of exercise: none Meds Home Medications and Allergies Home Medications Medication Instructions Recorded Confirmed Type atorvastatin 10 mg tablet 5 mg PO DAILY 11/28/19 05/06/22 History omeprazole 20 mg tablet,delayed 20 mg PO DAILY 11/28/19 05/06/22 History release mecobalamin (vitamin B12) 1,000 1,000 mcg PO DAILY #100 tabs 12/13/19 05/06/22 Rx mcg chewable tablet metformin 500 mg tablet 500 mg PO BID 08/06/20 05/06/22 History dulaglutide 1.5 mg/0.5 mL 3 mg SUBCUT QWEEK 12/13/20 05/06/22 History subcutaneous pen injector (Trulicity) Allergies Allergy/AdvReac Type Severity Reaction Status Date / Time No Known Drug Allergies Allergy Verified 12/19/22 09:10 Exam Vital Signs (past 8 hours): - 12/19/22 09:10 12/19/22 09:22 12/19/22 09:24 Temperature 100.5 F H Pulse Rate 91 H 90 85 Respiratory Rate 18 24 Blood Pressure 139/64 Pulse Oximetry 99 94 97 Oxygen Delivery Method Room Air Oxygen Flow Rate 12/19/22 09:24 12/19/22 09:30 12/19/22 09:47 Temperature Pulse Rate 84 86 Respiratory Rate 26 H Blood Pressure 142/65 H Pulse Oximetry 97 96 Oxygen Delivery Method Oxygen Flow Rate 12/19/22 10:00 12/19/22 10:01 12/19/22 10:15 Temperature 98.0 F Pulse Rate 82 79 Respiratory Rate 17 Blood Pressure Pulse Oximetry 98 97 Oxygen Delivery Method Oxygen Flow Rate 12/19/22 10:30 12/19/22 10:45 12/19/22 11:00 Temperature Pulse Rate 81 76 75 Respiratory Rate 19 14 9 L Blood Pressure Pulse Oximetry 95 93 94 Oxygen Delivery Method Oxygen Flow Rate 12/19/22 11:03 12/19/22 11:03 12/19/22 11:13 Temperature Pulse Rate 80 74 Respiratory Rate 16 17 Blood Pressure 96/52 L Pulse Oximetry 98 96 Oxygen Delivery Method Room Air Oxygen Flow Rate 12/19/22 11:13 12/19/22 11:15 12/19/22 11:15 Temperature Pulse Rate 73 Respiratory Rate 9 L Blood Pressure 117/57 L 107/55 L Pulse Oximetry 97 Oxygen Delivery Method Oxygen Flow Rate 12/19/22 11:30 12/19/22 11:30 12/19/22 11:45 Temperature Pulse Rate 78 78 Respiratory Rate 19 22 Blood Pressure 100/53 L Pulse Oximetry 100 98 Oxygen Delivery Method Oxygen Flow Rate 12/19/22 11:45 12/19/22 12:00 12/19/22 12:00 Temperature Pulse Rate 72 Respiratory Rate 13 Blood Pressure 86/49 L 101/54 L Pulse Oximetry 99 Oxygen Delivery Method Room Air Oxygen Flow Rate 12/19/22 12:15 12/19/22 12:16 12/19/22 12:16 Temperature Pulse Rate 74 74 Respiratory Rate 15 19 Blood Pressure 104/51 L Pulse Oximetry 98 97 Oxygen Delivery Method Oxygen Flow Rate 12/19/22 12:45 12/19/22 12:46 12/19/22 12:46 Temperature Pulse Rate 81 86 Respiratory Rate 21 19 Blood Pressure 132/62 Pulse Oximetry 98 99 Oxygen Delivery Method Room Air Oxygen Flow Rate 12/19/22 13:00 12/19/22 13:00 12/19/22 13:15 Temperature Pulse Rate 73 78 Respiratory Rate 13 14 Blood Pressure 114/59 L Pulse Oximetry 94 98 Oxygen Delivery Method Oxygen Flow Rate 12/19/22 13:15 12/19/22 13:30 12/19/22 14:25 Temperature 98.8 F Pulse Rate 74 83 Respiratory Rate 21 16 Blood Pressure 122/60 110/69 Pulse Oximetry 98 100 Oxygen Delivery Method Oxygen Flow Rate 0 Oxygen Delivery Method Room Air Oxygen Flow Rate 0 Narrative Exam Narrative: Gen.: Alert oriented has some abrasions and bruising to his face HEENT: Pupils equal round and reactive or mucosa is moist neck is supple Cardio: S1-S2 regular rate and rhythm no murmurs appreciated. Respiratory: Lungs are clear to auscultation no wheezes or crackles normal respiratory effort. Abdomen: Soft nontender some abdominal abrasions Extremities: Warm dry perfused full range of motion Objective Labs 12/19/22 09:30 12/19/22 09:30 Labs: Laboratory Results - last 24 hr 12/19/22 12/19/22 12/19/22 09:30 11:02 11:30 WBC 3.5 L RBC 4.01 L Hgb 11.5 L Hct 34.1 L MCV 84.8 MCH 28.6 MCHC 33.7 RDW 15.8 H Plt Count 40 L Neut % (Auto) Not Reportable Lymph % (Auto) Not Reportable [place] % (Auto) Not Reportable Eos % (Auto) Not Reportable Baso % (Auto) Not Reportable Lymph # (Auto) Not Reportable [place] # (Auto) Not Reportable Baso # (Auto) Not Reportable Total Counted 50 Seg Neutrophils % 68.0 Band Neutrophils % 14.0 H Lymphocytes % (Manual) 12.0 L Monocytes % (Manual) 6.0 Neutrophils # (Manual) 2870 L RBC Morphology Normal morphology Sodium 136 L Potassium 4.1 Chloride 103 Carbon Dioxide 24 BUN 36 H Creatinine 1.96 H Estimated GFR 35 L BUN/Creatinine Ratio 18.4 Glucose 168 H Lactate 1.5 Calcium 9.5 Magnesium 1.5 L Total Bilirubin 0.8 AST 172 H ALT 55 H Alkaline Phosphatase 57 Troponin I 0.965 H* 0.792 H* NT-Pro-B Natriuret Pep 1380 H Total Protein 7.8 Albumin 4.5 Globulin 3.3 Albumin/Globulin Ratio 1.4 Lipase 208 Procalcitonin 0.64 H Urine Color Urine Appearance Urine pH Ur Specific [place] Urine Protein Urine Glucose (UA) Urine Ketones Urine Occult Blood Urine Nitrate Urine Bilirubin Urine Urobilinogen Ur Leukocyte Esterase Urine RBC Urine WBC Ur Squamous Epith Cells Amorphous Sediment Urine Bacteria Granular Casts Urine Mucus Ur Culture Indicated? Chlamy pneumoniae PCR Not detected Adenovirus (PCR) Not detected B.parapertussis DNA PCR Not detected Coronavirus OC43 (PCR) Not detected Coronavirus HKU1 (PCR) Not detected Coronavirus 229E (PCR) Not detected SARS-CoV-2 (PCR) Detected H Coronavirus NL63 (PCR) Not detected Human Metapneumovir PCR Not detected Influenza A (PCR) Not detected Influenza Type A (PCR) Not detected Influenza Type B (PCR) Not detected M. pneumoniae (PCR) Not detected Parainfluenza 1 (PCR) Not detected Parainfluenza 2 (PCR) Not detected Parainfluenza 3 (PCR) Not detected Parainfluenza 4 (PCR) Not detected RSV (PCR) Not detected Entero/Rhino (PCR) Not detected 12/19/22 12:30 WBC RBC Hgb Hct MCV MCH MCHC RDW Plt Count Neut % (Auto) Lymph % (Auto) [place] % (Auto) Eos % (Auto) Baso % (Auto) Lymph # (Auto) [place] # (Auto) Baso # (Auto) Total Counted Seg Neutrophils % Band Neutrophils % Lymphocytes % (Manual) Monocytes % (Manual) Neutrophils # (Manual) RBC Morphology Sodium Potassium Chloride Carbon Dioxide BUN Creatinine Estimated GFR BUN/Creatinine Ratio Glucose Lactate Calcium Magnesium Total Bilirubin AST ALT Alkaline Phosphatase Troponin I NT-Pro-B Natriuret Pep Total Protein Albumin Globulin Albumin/Globulin Ratio Lipase Procalcitonin Urine Color Yellow Urine Appearance Clear Urine pH 5.0 Ur Specific [place] >=1.030 H Urine Protein 2+ H Urine Glucose (UA) Negative Urine Ketones Negative Urine Occult Blood 3+ H Urine Nitrate Negative Urine Bilirubin Negative Urine Urobilinogen 1.0 Ur Leukocyte Esterase Negative Urine RBC None seen Urine WBC None seen Ur Squamous Epith Cells None seen Amorphous Sediment 1+ Urine Bacteria None seen Granular Casts 1-5/lpf Urine Mucus 1+ H Ur Culture Indicated? Cult not indicated Chlamy pneumoniae PCR Adenovirus (PCR) B.parapertussis DNA PCR Coronavirus OC43 (PCR) Coronavirus HKU1 (PCR) Coronavirus 229E (PCR) SARS-CoV-2 (PCR) Coronavirus NL63 (PCR) Human Metapneumovir PCR Influenza A (PCR) Influenza Type A (PCR) Influenza Type B (PCR) M. pneumoniae (PCR) Parainfluenza 1 (PCR) Parainfluenza 2 (PCR) Parainfluenza 3 (PCR) Parainfluenza 4 (PCR) RSV (PCR) Entero/Rhino (PCR) Assessment & Plan Assessment and plan (1) COVID: Status: Acute (2) Weakness: Status: Acute (3) Non-ST elevation [place] (NSTEMI): Status: Acute (4) Thrombocytopenia: Status: Acute Plan Non ST wave myocardial infarction patient has elevated troponins. He also has elevated kidney function. Patient was found down and quite weak. EKG is nonrevealing for ST elevation or depression. Cardiology was consulted in the emergency department and recommended heparin. Due to patient's thrombocytopenia low platelets and poor renal function heparin would not be indicated the risks are much greater as patient is stable without acute chest pain EKG changes and his troponins are already going down placing him on heparin would be much more risky due to his renal function and platelets at 40. Will go ahead and manage medically without intervention with oxygen morphine as needed some beta-lucy and an aspirin and DVT prophylaxis Lovenox. COVID. Patient is COVID positive. Patient will be placed in isolation and contact precautions. Due to the COVID he is at increased risk of thrombosis. He will be placed on DVT prophylaxis with Lovenox even though his platelets are 40 will monitor for increased signs of bleeding. Would not recommend full anticoagulation. Patient has no signs of significant respiratory failure. He is oxygenating well. I will hold off on treating with the remdesivir or baricitinib or steroids. Acute kidney injury. Patient has an acute kidney injury. He has baseline kidney failure. Kidney injury I think is more due to being down dehydration. Will place IV fluid hydration for the patient monitor his kidney function check a magnesium monitor closely his electrolytes. Thrombocytopenia. Patient has thrombocytopenia platelets are 40. His normal baseline is above 80 but right now they are much lower than normal we will continue to monitor. Anemia. Anemia of chronic disease to his underlying kidney failure. Diabetes. Patient is on metformin. His creatinine is quite high above his baseline. His metformin will be held he will be placed on Lantus insulin and insulin sliding scale coverage. Hyperlipidemia patient will be replaced his statin. Hypertension patient will be placed on beta-blockade. GERD history. Patient on omeprazole outpatient this will be continued during his hospital stay. Disposition and plan admit to inpatient
--- NOTE | 2022-12-19 15:00 | PM.CN.EICU ---
History of Present Illness Consult details IF CAMERA ACTIVATED, patient seen via real-time interactive audiovisual communication: Camera activated Chief complaint: fell T-2 and today Consent obtained for tele-resource specialist care: Yes Patient Location: ICU Provider location (State): Other participants/roles: , RN Narrative: 77-year-old male with a history of CKD stage III, DM II, HTN, MUGUS, anemia of chronic disease , chronic thrombocytopenia. Pt started having mild dry cough and sorethroat couple of days ago, felt weak , dizziness on standing with multiple falls, last fall was this morning in the bathroom, he was down for 5- 6 hours.Denies any chest pain, fevers or chills, no nausea or vomiting. Patient has had no shortness of breath. No headache, visual changes, loss of bladder control, no focal deficit. Un remarkable chest x-ray CT scan of head and neck and EKG. Assessment: Generalized weakness Dizziness/ syncope Recurrent falls 2/2 above CHARLES on CKD stage III NSTEMI type II COVID 19 infection Acute on chronic sever thrombocytopenia GERD HTN DMII On RA , AAO x 4, no distress Plan: Trend trop Q6H, CBC Q12H Check TSH & B 12 level UA showing hemoglobinuria with no RBC, concern for rhabdo, checking CK level, start IV LR at 125 ml/ hr On Aspisrin, statin and BB ISS , BS goal <180 Hypertension patient will be placed on beta-blockade. 2 D echo ordered On PPI and SC H PFSH Medical History Hyperlipidemia Hypertension Cataracts, bilateral Diabetes Anemia, chronic renal failure Social History household members: none Smoking Status: Never smoker alcohol intake: former eating out: 4 or more times/week Type(s) of exercise: none Current Medications Current Medications Medications: Home Medications atorvastatin 10 mg tablet 5 mg PO DAILY 11/28/19 [History Confirmed 05/06/22] omeprazole 20 mg tablet,delayed release 20 mg PO DAILY 11/28/19 [History Confirmed 05/06/22] mecobalamin (vitamin B12) 1,000 mcg chewable tablet 1,000 mcg PO DAILY #100 tabs 12/13/19 [Rx Confirmed 05/06/22] metformin 500 mg tablet 500 mg PO BID 05/25/21 [History Confirmed 05/06/22] dulaglutide 1.5 mg/0.5 mL subcutaneous pen injector (Trulicity) 3 mg SUBCUT QWEEK 12/13/20 [History Confirmed 05/06/22] Exam Vital Signs (past 8 hours): - 12/19/22 09:10 12/19/22 09:22 12/19/22 09:24 Temperature 100.5 F H Pulse Rate 91 H 90 85 Respiratory Rate 18 24 Blood Pressure 139/64 Pulse Oximetry 99 94 97 Oxygen Delivery Method Room Air Oxygen Flow Rate 12/19/22 09:24 12/19/22 09:30 12/19/22 09:47 Temperature Pulse Rate 84 86 Respiratory Rate 26 H Blood Pressure 142/65 H Pulse Oximetry 97 96 Oxygen Delivery Method Oxygen Flow Rate 12/19/22 10:00 12/19/22 10:01 12/19/22 10:15 Temperature 98.0 F Pulse Rate 82 79 Respiratory Rate 17 Blood Pressure Pulse Oximetry 98 97 Oxygen Delivery Method Oxygen Flow Rate 12/19/22 10:30 12/19/22 10:45 12/19/22 11:00 Temperature Pulse Rate 81 76 75 Respiratory Rate 19 14 9 L Blood Pressure Pulse Oximetry 95 93 94 Oxygen Delivery Method Oxygen Flow Rate 12/19/22 11:03 12/19/22 11:03 12/19/22 11:13 Temperature Pulse Rate 80 74 Respiratory Rate 16 17 Blood Pressure 96/52 L Pulse Oximetry 98 96 Oxygen Delivery Method Room Air Oxygen Flow Rate 12/19/22 11:13 12/19/22 11:15 12/19/22 11:15 Temperature Pulse Rate 73 Respiratory Rate 9 L Blood Pressure 117/57 L 107/55 L Pulse Oximetry 97 Oxygen Delivery Method Oxygen Flow Rate 12/19/22 11:30 12/19/22 11:30 12/19/22 11:45 Temperature Pulse Rate 78 78 Respiratory Rate 19 22 Blood Pressure 100/53 L Pulse Oximetry 100 98 Oxygen Delivery Method Oxygen Flow Rate 12/19/22 11:45 12/19/22 12:00 12/19/22 12:00 Temperature Pulse Rate 72 Respiratory Rate 13 Blood Pressure 86/49 L 101/54 L Pulse Oximetry 99 Oxygen Delivery Method Room Air Oxygen Flow Rate 12/19/22 12:15 12/19/22 12:16 12/19/22 12:16 Temperature Pulse Rate 74 74 Respiratory Rate 15 19 Blood Pressure 104/51 L Pulse Oximetry 98 97 Oxygen Delivery Method Oxygen Flow Rate 12/19/22 12:45 12/19/22 12:46 12/19/22 12:46 Temperature Pulse Rate 81 86 Respiratory Rate 21 19 Blood Pressure 132/62 Pulse Oximetry 98 99 Oxygen Delivery Method Room Air Oxygen Flow Rate 12/19/22 13:00 12/19/22 13:00 12/19/22 13:15 Temperature Pulse Rate 73 78 Respiratory Rate 13 14 Blood Pressure 114/59 L Pulse Oximetry 94 98 Oxygen Delivery Method Oxygen Flow Rate 12/19/22 13:15 12/19/22 13:30 12/19/22 14:25 Temperature 98.8 F Pulse Rate 74 83 Respiratory Rate 21 16 Blood Pressure 122/60 110/69 Pulse Oximetry 98 100 Oxygen Delivery Method Oxygen Flow Rate 0 Oxygen Delivery Method Room Air Oxygen Flow Rate 0 Objective Labs 12/19/22 09:30 12/19/22 09:30 Labs: Laboratory Results - last 24 hr 12/19/22 12/19/22 12/19/22 09:30 11:02 11:30 WBC 3.5 L RBC 4.01 L Hgb 11.5 L Hct 34.1 L MCV 84.8 MCH 28.6 MCHC 33.7 RDW 15.8 H Plt Count 40 L Neut % (Auto) Not Reportable Lymph % (Auto) Not Reportable [place] % (Auto) Not Reportable Eos % (Auto) Not Reportable Baso % (Auto) Not Reportable Lymph # (Auto) Not Reportable [place] # (Auto) Not Reportable Baso # (Auto) Not Reportable Total Counted 50 Seg Neutrophils % 68.0 Band Neutrophils % 14.0 H Lymphocytes % (Manual) 12.0 L Monocytes % (Manual) 6.0 Neutrophils # (Manual) 2870 L RBC Morphology Normal morphology Sodium 136 L Potassium 4.1 Chloride 103 Carbon Dioxide 24 BUN 36 H Creatinine 1.96 H Estimated GFR 35 L BUN/Creatinine Ratio 18.4 Glucose 168 H Lactate 1.5 Calcium 9.5 Magnesium 1.5 L Total Bilirubin 0.8 AST 172 H ALT 55 H Alkaline Phosphatase 57 Troponin I 0.965 H* 0.792 H* NT-Pro-B Natriuret Pep 1380 H Total Protein 7.8 Albumin 4.5 Globulin 3.3 Albumin/Globulin Ratio 1.4 Lipase 208 Procalcitonin 0.64 H Urine Color Urine Appearance Urine pH Ur Specific [place] Urine Protein Urine Glucose (UA) Urine Ketones Urine Occult Blood Urine Nitrate Urine Bilirubin Urine Urobilinogen Ur Leukocyte Esterase Urine RBC Urine WBC Ur Squamous Epith Cells Amorphous Sediment Urine Bacteria Granular Casts Urine Mucus Ur Culture Indicated? Chlamy pneumoniae PCR Not detected Adenovirus (PCR) Not detected B.parapertussis DNA PCR Not detected Coronavirus OC43 (PCR) Not detected Coronavirus HKU1 (PCR) Not detected Coronavirus 229E (PCR) Not detected SARS-CoV-2 (PCR) Detected H Coronavirus NL63 (PCR) Not detected Human Metapneumovir PCR Not detected Influenza A (PCR) Not detected Influenza Type A (PCR) Not detected Influenza Type B (PCR) Not detected M. pneumoniae (PCR) Not detected Parainfluenza 1 (PCR) Not detected Parainfluenza 2 (PCR) Not detected Parainfluenza 3 (PCR) Not detected Parainfluenza 4 (PCR) Not detected RSV (PCR) Not detected Entero/Rhino (PCR) Not detected 12/19/22 12:30 WBC RBC Hgb Hct MCV MCH MCHC RDW Plt Count Neut % (Auto) Lymph % (Auto) [place] % (Auto) Eos % (Auto) Baso % (Auto) Lymph # (Auto) [place] # (Auto) Baso # (Auto) Total Counted Seg Neutrophils % Band Neutrophils % Lymphocytes % (Manual) Monocytes % (Manual) Neutrophils # (Manual) RBC Morphology Sodium Potassium Chloride Carbon Dioxide BUN Creatinine Estimated GFR BUN/Creatinine Ratio Glucose Lactate Calcium Magnesium Total Bilirubin AST ALT Alkaline Phosphatase Troponin I NT-Pro-B Natriuret Pep Total Protein Albumin Globulin Albumin/Globulin Ratio Lipase Procalcitonin Urine Color Yellow Urine Appearance Clear Urine pH 5.0 Ur Specific [place] >=1.030 H Urine Protein 2+ H Urine Glucose (UA) Negative Urine Ketones Negative Urine Occult Blood 3+ H Urine Nitrate Negative Urine Bilirubin Negative Urine Urobilinogen 1.0 Ur Leukocyte Esterase Negative Urine RBC None seen Urine WBC None seen Ur Squamous Epith Cells None seen Amorphous Sediment 1+ Urine Bacteria None seen Granular Casts 1-5/lpf Urine Mucus 1+ H Ur Culture Indicated? Cult not indicated Chlamy pneumoniae PCR Adenovirus (PCR) B.parapertussis DNA PCR Coronavirus OC43 (PCR) Coronavirus HKU1 (PCR) Coronavirus 229E (PCR) SARS-CoV-2 (PCR) Coronavirus NL63 (PCR) Human Metapneumovir PCR Influenza A (PCR) Influenza Type A (PCR) Influenza Type B (PCR) M. pneumoniae (PCR) Parainfluenza 1 (PCR) Parainfluenza 2 (PCR) Parainfluenza 3 (PCR) Parainfluenza 4 (PCR) RSV (PCR) Entero/Rhino (PCR)
[2022-12-19 15:02] LABS: PTT Partial Thromboplastin Tim 32 SECONDS (26-36)
[2022-12-19] MEDS: LACTATED RINGERS 1,000 ML 100 ML IV (15:07)
--- NOTE | 2022-12-19 15:33 | PM.ICURNDS ---
- :: This patient was seen via real time interactive two-way audiovisual telecommunication. Note: I discussed with the risks of heparin drip in the sitting of very low platelets, NSTEMI is type II as pt asymptomatic and this trop leak is 2/2 falls and stress , could also be part of rhbdo , checking CK, trop is trending down, stopped the IV heparin drip and switched to low dose SC heparin with SCD for now, CBC Q12H, stop ARJUN if heparin started to trend down.
[2022-12-19] MEDS: METOPROLOL ER 25 MG TABLET PO (15:45)
[2022-12-19 15:52] LABS: Hematocrit 30.3 % (41-53); Hemoglobin 10.3 g/dL (13.5-17.5); Mean Corpuscular HGB Conc 33.9 % (30-36); Mean Corpuscular Hemoglobin 28.7 PG (26-34); Mean Corpuscular Volume 84.5 fL (80-100); Red Blood Cell Count 3.58 X10^6/uL (4.5-5.9); Red Cell Distribution Width 15.8 % (11.6-14.8); White Blood Cell Count 3.2 X10^3/uL (4.5-11.0)
[2022-12-19] MEDS: LACTATED RINGERS 1,000 ML 125 ML IV (15:55)
[2022-12-19 16:11] LABS: Troponin I 0.641 ng/mL (0.01-0.034)
[2022-12-19 16:12] LABS: Platelet Count 31 X10^3/uL (150-400)
[2022-12-19 16:19] LABS: Creatine Kinase 10973 U/L (55-170)
[2022-12-19 16:42] LABS: TSH w/ Reflex to FT4 1.06 uIU/mL (0.47-4.68)
[2022-12-19 17:01] LABS: Vitamin B12 984 pg/mL (239-931)
[2022-12-19 18:14] LABS: MRSA (Nasal) PCR Not Detected (Not Detect)
[2022-12-19 19:49] LABS: PTT Partial Thromboplastin Tim 32 SECONDS (26-36)
[2022-12-19 20:13] LABS: Creatine Kinase 11783 U/L (55-170)
--- NOTE | 2022-12-19 20:29 | PM.ICURNDS ---
- :: This patient was seen via real time interactive two-way audiovisual telecommunication. Note: Pt comfortable in bed, no complain, CK increased from 10 to 11 K, UOP low, will continue LR at 200 ml/ hr, give a bolus of NS 500 ml with IV lasix 80 mg, close monitoring of the UOP, BMP and CK, pending BMP.
[2022-12-19 20:39] LABS: BUN Creatinine Ratio 20.3 (6-22); Blood Urea Nitrogen 35 mg/dL (9-20); Calcium 8.8 mg/dL (8.4-10.2); Carbon Dioxide 24 mmol/L (22-32); Chloride 105 mmol/L (98-107); Estimated Glomerular Filt Rate 41 mL/min (>60); Glucose 172 mg/dL (80-110); HEMOLYSIS < 15 (0-50); Sodium 136 mmol/L (137-145)
[2022-12-19] MEDS: SODIUM CHLORIDE 0.9% 500 ML IV (20:45)
[2022-12-19] MEDS: LACTATED RINGERS 1,000 ML 200 ML IV (20:45)
[2022-12-19] MEDS: FUROSEMIDE 80 MG in SODIUM CHLORIDE 0.9% 50 ML 116 MG IV (21:01)
[2022-12-19] MEDS: INSULIN GLARGINE 100 UNIT/ML 3ML PEN 20 UNIT SUBCUT (21:23)
[2022-12-19 21:57] LABS: Troponin I 0.399 ng/mL (0.01-0.034)
[2022-12-19 23:51] LABS: Creatine Kinase 12502 U/L (55-170)
[2022-12-20] VITALS (93 sets, daily range): BP systolic 86–118; BP diastolic 50–60; PULSE 58–86; RESP 9–34; TEMP 36.5–37.3; O2SAT 80–100
[2022-12-20] MEDS: LACTATED RINGERS 1,000 ML 200 ML IV ×4 (02:05→16:43)
[2022-12-20] MEDS: PANTOPRAZOLE DR 20 MG TABLET PO (05:50)
[2022-12-20 05:58] LABS: Hematocrit 32.8 % (41-53); Hemoglobin 10.9 g/dL (13.5-17.5); Mean Corpuscular HGB Conc 33.3 % (30-36); Mean Corpuscular Hemoglobin 27.8 PG (26-34); Mean Corpuscular Volume 83.4 fL (80-100); Red Blood Cell Count 3.93 X10^6/uL (4.5-5.9); Red Cell Distribution Width 15.8 % (11.6-14.8)
[2022-12-20 05:59] LABS: INR 1.1 (0.9-1.3); Prothrombin Time 12.8 SECONDS (10.1-12.7)
[2022-12-20 06:05] LABS: Alanine Aminotransferase 71 IU/L (<50); Albumin 3.6 g/dL (3.5-5.0); Albumin Globulin Ratio 1.1 (1.0-2.8); Alkaline Phosphatase 44 U/L (38-126); Aspartate Aminotransferase 206 IU/L (17-59); BUN Creatinine Ratio 20.9 (6-22); Bilirubin Total 0.5 mg/dL (0.2-1.3); Blood Urea Nitrogen 34 mg/dL (9-20); Calcium 8.8 mg/dL (8.4-10.2); Carbon Dioxide 27 mmol/L (22-32); Chloride 101 mmol/L (98-107); Estimated Glomerular Filt Rate 44 mL/min (>60); Globulin 3.2 g/dL (1.7-4.1); Glucose 78 mg/dL (80-110); HEMOLYSIS < 15 (0-50); Magnesium 1.5 mg/dL (1.6-2.3); Potassium 3.8 mmol/L (3.4-5.1); Sodium 136 mmol/L (137-145); Total Protein 6.8 g/dL (6.3-8.2)
[2022-12-20 06:06] LABS: Add Manual Diff / Slide Review YES; Creatine Kinase 11754 U/L (55-170); Platelet Count 33 X10^3/uL (150-400)
--- NOTE | 2022-12-20 07:05 | PC.NURSE ---
shift note--pt was given NS bolus and lasix 80mg earlier this shift; his urine has cleared in appearance and increased in volume; he has not had any complaints this shift and has napped between care
[2022-12-20 07:13] LABS: Anisocytosis 1+; Neutrophils Absolute Manual 1500 /uL (3000-5900); Total Cells Counted 50
--- NOTE | 2022-12-20 07:15 | PM.PN.1 ---
Subjective Subjective Date Patient Seen: 12/20/22 Time Patient Seen: 07:15 Interval history: Patient seen and evaluated this morning said he had a good night. Slept well. Patient desats during nighttime consistent with sleep apnea saturations in the low 60s. Not aware. Still feeling a little bit weak had dinner yesterday no nausea. He is not been out of bed. Some complaints today of just muscle aches and pains. No chest pain or shortness of breath. Vital signs have been stable overnight urine output was a little decreased on IV fluids and given a dose of Lasix. Exam Vital Signs (past 8 hours): - 12/19/22 23:40 12/20/22 00:00 12/20/22 00:00 Temperature Pulse Rate 64 65 Respiratory Rate 14 16 Blood Pressure 103/56 L Pulse Oximetry 97 97 Oxygen Flow Rate 12/20/22 00:24 12/20/22 01:00 12/20/22 01:00 Temperature Pulse Rate 65 65 Respiratory Rate 12 10 L Blood Pressure 105/60 Pulse Oximetry 97 97 Oxygen Flow Rate 12/20/22 01:42 12/20/22 02:00 12/20/22 02:00 Temperature Pulse Rate 65 66 Respiratory Rate 12 14 Blood Pressure 106/58 L Pulse Oximetry 92 98 Oxygen Flow Rate 0.5 0.5 12/20/22 03:00 12/20/22 03:00 12/20/22 03:06 Temperature Pulse Rate 67 Respiratory Rate 16 Blood Pressure 88/53 L 118/54 L Pulse Oximetry 90 L Oxygen Flow Rate 0.5 0.5 0.5 12/20/22 03:06 12/20/22 03:52 12/20/22 04:00 Temperature 98.5 F Pulse Rate 66 66 65 Respiratory Rate 10 L 12 16 Blood Pressure Pulse Oximetry 98 98 98 Oxygen Flow Rate 0.5 0.5 12/20/22 04:00 12/20/22 04:14 12/20/22 05:00 Temperature Pulse Rate 81 67 Respiratory Rate 29 H 14 Blood Pressure 99/52 L Pulse Oximetry 97 99 Oxygen Flow Rate 12/20/22 05:00 12/20/22 06:00 12/20/22 06:00 Temperature Pulse Rate 68 Respiratory Rate 14 Blood Pressure 99/57 L 112/57 L Pulse Oximetry 97 Oxygen Flow Rate 12/20/22 06:31 Temperature Pulse Rate 66 Respiratory Rate 20 Blood Pressure Pulse Oximetry 97 Oxygen Flow Rate Oxygen Delivery Method Nasal Cannula Oxygen Flow Rate 0.5 Narrative Exam Narrative: Gen.: Alert some facial bruising and abrasions HEENT: Pupils equal round and reactive or mucosa is moist neck is supple Cardio: [S1-S2 regular rate and rhythm no murmurs appreciated.] Respiratory: [Lungs are clear to auscultation no wheezes or crackles normal respiratory effort.] Abdomen: Soft some mild tenderness diffusely superficial tenderness Extremities: Full range of motion no edema Objective Labs 12/20/22 05:44 12/20/22 05:44 Labs: Laboratory Results - last 24 hr 12/19/22 12/19/22 12/19/22 09:30 11:02 11:30 WBC 3.5 L RBC 4.01 L Hgb 11.5 L Hct 34.1 L MCV 84.8 MCH 28.6 MCHC 33.7 RDW 15.8 H Plt Count 40 L Neut % (Auto) Not Reportable Lymph % (Auto) Not Reportable [place] % (Auto) Not Reportable Eos % (Auto) Not Reportable Baso % (Auto) Not Reportable Lymph # (Auto) Not Reportable [place] # (Auto) Not Reportable Baso # (Auto) Not Reportable Total Counted 50 Seg Neutrophils % 68.0 Band Neutrophils % 14.0 H Lymphocytes % (Manual) 12.0 L Atypical Lymphs % Monocytes % (Manual) 6.0 Neutrophils # (Manual) 2870 L RBC Morphology Normal morphology Anisocytosis PT INR APTT Sodium 136 L Potassium 4.1 Chloride 103 Carbon Dioxide 24 BUN 36 H Creatinine 1.96 H Estimated GFR 35 L BUN/Creatinine Ratio 18.4 Glucose 168 H Lactate 1.5 Calcium 9.5 Magnesium 1.5 L Total Bilirubin 0.8 AST 172 H ALT 55 H Alkaline Phosphatase 57 Total Creatine Kinase Troponin I 0.965 H* 0.792 H* NT-Pro-B Natriuret Pep 1380 H Total Protein 7.8 Albumin 4.5 Globulin 3.3 Albumin/Globulin Ratio 1.4 Lipase 208 Vitamin B12 984 H Procalcitonin 0.64 H TSH 1.06 Urine Color Urine Appearance Urine pH Ur Specific [place] Urine Protein Urine Glucose (UA) Urine Ketones Urine Occult Blood Urine Nitrate Urine Bilirubin Urine Urobilinogen Ur Leukocyte Esterase Urine RBC Urine WBC Ur Squamous Epith Cells Amorphous Sediment Urine Bacteria Granular Casts Urine Mucus Ur Culture Indicated? Nasal Screen MRSA (PCR) Chlamy pneumoniae PCR Not detected Adenovirus (PCR) Not detected B.parapertussis DNA PCR Not detected Coronavirus OC43 (PCR) Not detected Coronavirus HKU1 (PCR) Not detected Coronavirus 229E (PCR) Not detected SARS-CoV-2 (PCR) Detected H Coronavirus NL63 (PCR) Not detected Human Metapneumovir PCR Not detected Influenza A (PCR) Not detected Influenza Type A (PCR) Not detected Influenza Type B (PCR) Not detected M. pneumoniae (PCR) Not detected Parainfluenza 1 (PCR) Not detected Parainfluenza 2 (PCR) Not detected Parainfluenza 3 (PCR) Not detected Parainfluenza 4 (PCR) Not detected RSV (PCR) Not detected Entero/Rhino (PCR) Not detected 12/19/22 12/19/22 12/19/22 12:30 14:45 15:00 WBC 3.2 L RBC 3.58 L Hgb 10.3 L Hct 30.3 L MCV 84.5 MCH 28.7 MCHC 33.9 RDW 15.8 H Plt Count 31 L* Neut % (Auto) Lymph % (Auto) [place] % (Auto) Eos % (Auto) Baso % (Auto) Lymph # (Auto) [place] # (Auto) Baso # (Auto) Total Counted Seg Neutrophils % Band Neutrophils % Lymphocytes % (Manual) Atypical Lymphs % Monocytes % (Manual) Neutrophils # (Manual) RBC Morphology Anisocytosis PT INR APTT 32 Sodium Potassium Chloride Carbon Dioxide BUN Creatinine Estimated GFR BUN/Creatinine Ratio Glucose Lactate Calcium Magnesium Total Bilirubin AST ALT Alkaline Phosphatase Total Creatine Kinase 91257 H Troponin I 0.641 H* NT-Pro-B Natriuret Pep Total Protein Albumin Globulin Albumin/Globulin Ratio Lipase Vitamin B12 Procalcitonin TSH Urine Color Yellow Urine Appearance Clear Urine pH 5.[address] >=1.030 H Urine Protein 2+ H Urine Glucose (UA) Negative Urine Ketones Negative Urine Occult Blood 3+ H Urine Nitrate Negative Urine Bilirubin Negative Urine Urobilinogen 1.0 Ur Leukocyte Esterase Negative Urine RBC None seen Urine WBC None seen Ur Squamous Epith Cells None seen Amorphous Sediment 1+ Urine Bacteria None seen Granular Casts 1-5/lpf Urine Mucus 1+ H Ur Culture Indicated? Cult not indicated Nasal Screen MRSA (PCR) Chlamy pneumoniae PCR Adenovirus (PCR) B.parapertussis DNA PCR Coronavirus OC43 (PCR) Coronavirus HKU1 (PCR) Coronavirus 229E (PCR) SARS-CoV-2 (PCR) Coronavirus NL63 (PCR) Human Metapneumovir PCR Influenza A (PCR) Influenza Type A (PCR) Influenza Type B (PCR) M. pneumoniae (PCR) Parainfluenza 1 (PCR) Parainfluenza 2 (PCR) Parainfluenza 3 (PCR) Parainfluenza 4 (PCR) RSV (PCR) Entero/Rhino (PCR) 12/19/22 12/19/22 12/19/22 15:50 19:15 19:15 WBC RBC Hgb Hct MCV MCH MCHC RDW Plt Count Neut % (Auto) Lymph % (Auto) [place] % (Auto) Eos % (Auto) Baso % (Auto) Lymph # (Auto) [place] # (Auto) Baso # (Auto) Total Counted Seg Neutrophils % Band Neutrophils % Lymphocytes % (Manual) Atypical Lymphs % Monocytes % (Manual) Neutrophils # (Manual) RBC Morphology Anisocytosis PT INR APTT 32 Sodium 136 L Potassium 4.0 Chloride 105 Carbon Dioxide 24 BUN 35 H Creatinine 1.72 H Estimated GFR 41 L BUN/Creatinine Ratio 20.3 Glucose 172 H Lactate Calcium 8.8 Magnesium Total Bilirubin AST ALT Alkaline Phosphatase Total Creatine Kinase 80353 H Cancelled Troponin I NT-Pro-B Natriuret Pep Total Protein Albumin Globulin Albumin/Globulin Ratio Lipase Vitamin B12 Procalcitonin TSH Urine Color Urine Appearance Urine pH Ur Specific [place] Urine Protein Urine Glucose (UA) Urine Ketones Urine Occult Blood Urine Nitrate Urine Bilirubin Urine Urobilinogen Ur Leukocyte Esterase Urine RBC Urine WBC Ur Squamous Epith Cells Amorphous Sediment Urine Bacteria Granular Casts Urine Mucus Ur Culture Indicated? Nasal Screen MRSA (PCR) Not detected Chlamy pneumoniae PCR Adenovirus (PCR) B.parapertussis DNA PCR Coronavirus OC43 (PCR) Coronavirus HKU1 (PCR) Coronavirus 229E (PCR) SARS-CoV-2 (PCR) Coronavirus NL63 (PCR) Human Metapneumovir PCR Influenza A (PCR) Influenza Type A (PCR) Influenza Type B (PCR) M. pneumoniae (PCR) Parainfluenza 1 (PCR) Parainfluenza 2 (PCR) Parainfluenza 3 (PCR) Parainfluenza 4 (PCR) RSV (PCR) Entero/Rhino (PCR) 12/19/22 12/19/22 12/20/22 21:20 23:34 05:44 WBC 3.0 L RBC 3.93 L Hgb 10.9 L Hct 32.8 L MCV 83.4 MCH 27.8 MCHC 33.3 RDW 15.8 H Plt Count 33 L* Neut % (Auto) Not Reportable Lymph % (Auto) Not Reportable [place] % (Auto) Not Reportable Eos % (Auto) Not Reportable Baso % (Auto) Not Reportable Lymph # (Auto) Not Reportable [place] # (Auto) Not Reportable Baso # (Auto) Not Reportable Total Counted 50 Seg Neutrophils % 36.0 L Band Neutrophils % 14.0 H Lymphocytes % (Manual) 30.0 Atypical Lymphs % 4.0 H Monocytes % (Manual) 16.0 H Neutrophils # (Manual) 1500 L RBC Morphology Not Reportable Anisocytosis 1+ H PT 12.8 H INR 1.1 APTT Sodium 136 L Potassium 3.8 Chloride 101 Carbon Dioxide 27 BUN 34 H Creatinine 1.63 H Estimated GFR 44 L BUN/Creatinine Ratio 20.9 Glucose 78 L Lactate Calcium 8.8 Magnesium 1.5 L Total Bilirubin 0.5 AST 206 H ALT 71 H Alkaline Phosphatase 44 Total Creatine Kinase 99970 H 18527 H Troponin I 0.399 H* NT-Pro-B Natriuret Pep Total Protein 6.8 Albumin 3.6 Globulin 3.2 Albumin/Globulin Ratio 1.1 Lipase Vitamin B12 Procalcitonin TSH Urine Color Urine Appearance Urine pH Ur Specific [place] Urine Protein Urine Glucose (UA) Urine Ketones Urine Occult Blood Urine Nitrate Urine Bilirubin Urine Urobilinogen Ur Leukocyte Esterase Urine RBC Urine WBC Ur Squamous Epith Cells Amorphous Sediment Urine Bacteria Granular Casts Urine Mucus Ur Culture Indicated? Nasal Screen MRSA (PCR) Chlamy pneumoniae PCR Adenovirus (PCR) B.parapertussis DNA PCR Coronavirus OC43 (PCR) Coronavirus HKU1 (PCR) Coronavirus 229E (PCR) SARS-CoV-2 (PCR) Coronavirus NL63 (PCR) Human Metapneumovir PCR Influenza A (PCR) Influenza Type A (PCR) Influenza Type B (PCR) M. pneumoniae (PCR) Parainfluenza 1 (PCR) Parainfluenza 2 (PCR) Parainfluenza 3 (PCR) Parainfluenza 4 (PCR) RSV (PCR) Entero/Rhino (PCR) [facility] Medical History Hyperlipidemia Hypertension Cataracts, bilateral Diabetes Anemia, chronic renal failure Social History household members: none Smoking Status: Never smoker alcohol intake: former eating out: 4 or more times/week Type(s) of exercise: none Assessment & Plan Assessment and plan (1) Non-ST elevation [place] (NSTEMI): Status: Acute (2) Rhabdomyolysis: Qualifiers: Rhabdomyolysis type: traumatic Encounter type: initial encounter Qualified Code(s): T79.6XXA - Traumatic ischemia of muscle, initial encounter Status: Acute Plan Non ST wave myocardial infarction troponins elevated EKG shows no acute changes. Potential due to myocardial ischemia versus being down and kidney dysfunction. Continue with beta-lucy aspirin no further chest pain. Patient is not on heparin due to low platelets and kidney dysfunction continue to treat medically. Rhabdomyolysis patient has high CPK of 11,000. CPK has peaked and is starting to go down. Continue with IV fluids monitoring electrolytes and kidney function Lasix as needed to keep urine output appropriate. Patient received fluid bolus yesterday to help keep urine output up. Will continue fluid boluses and Lasix as needed. Recheck CPK this afternoon and tomorrow morning Acute kidney injury. Patient has chronic kidney disease with acute kidney injury due to dehydration rhabdomyolysis kidney function is improved. Electrolytes replaced magnesium yesterday repeat basic metabolic profile this afternoon and tomorrow morning COVID. Patient COVID positive relatively asymptomatic continue with isolation precautions. Obstructive sleep apnea. New diagnosis for patient. Overnight patient desats consistently sometimes even as low as into the 60s. Respiratory to evaluate him today for CPAP. Thrombocytopenia. Platelet count is decreased today at 33. Patient has known history of thrombocytopenia. Lower than normal. Continue to monitor avoid medications which may cause further decline in platelets. Has some bruising but no signs of active bleeding Anemia. Anemia of chronic disease to his underlying kidney failure. Diabetes. Patient's metformin has been stopped. Patient on insulin long-acting as well as insulin sliding scale coverage diet as tolerated. Hyperlipidemia patient will be replaced his statin. Hypertension patient will be placed on beta-blockade. GERD history. Patient on omeprazole outpatient this will be continued during his hospital stay. Disposition continue ICU status monitor closely kidney function fluids and urine output. Echocardiogram today. Quality VTE Deep Vein Thrombosis/Pulmonary Embolism Present on Admission: No
[2022-12-20] MEDS: ATORVASTATIN 20 MG TABLET 10 MG PO (08:34)
[2022-12-20] MEDS: MAGNESIUM CHLORIDE 64 MG TABLET 128 MG PO (08:34)
[2022-12-20] MEDS: ASPIRIN EC 325 MG TABLET PO (08:34)
[2022-12-20] MEDS: METOPROLOL ER 25 MG TABLET PO (08:35)
--- NOTE | 2022-12-20 10:10 | P.TELICUPN_ITS ---
Subjective Subjective IF CAMERA ACTIVATED, patient seen via real-time interactive audiovisual communication: Camera activated Consent obtained for tele-cotton broker care: Yes Patient Location: ICU Provider location (State): [place] Other participants/roles: bedside nurse Interval history: no acute events since admission no complaints Current Medications Current Medications Medications: Home Medications atorvastatin 10 mg tablet 5 mg PO DAILY 11/28/19 [History Confirmed 12/19/22] omeprazole 20 mg tablet,delayed release 20 mg PO DAILY 11/28/19 [History Confirmed 12/19/22] mecobalamin (vitamin B12) 1,000 mcg chewable tablet 1,000 mcg PO DAILY #100 tabs 12/13/19 [Rx Confirmed 12/19/22] metformin 500 mg tablet 500 mg PO BID 08/06/20 [History Confirmed 12/19/22] dulaglutide 1.5 mg/0.5 mL subcutaneous pen injector (Trulicity) 3 mg SUBCUT QWEEK 12/13/20 [History Confirmed 12/19/22] brimonidine 0.15 % eye drops 1 drp EYE-LEFT BID 12/19/22 [History Confirmed 12/19/22] dorzolamide 22.3 mg-timolol 6.8 mg/mL eye drops 1 drp EYE-LEFT BID 12/19/22 [History Confirmed 12/19/22] Visit Medications (administered) Generic Name Dose Route Start Last Admin Trade Name Freq PRN Reason Stop Dose Admin Aspirin 325 mg 12/20/22 09:00 12/20/22 08:34 Aspirin Ec 325 Mg Tablet PO 325 mg DAILY ARJUN Administration Atorvastatin Calcium 10 mg 12/20/22 09:00 12/20/22 08:34 Atorvastatin 20 Mg Tablet PO 10 mg DAILY ARJUN Administration Lactated Ringer's 1,000 mls @ 200 mls/hr 12/19/22 15:30 12/20/22 07:02 Lactated Ringers IV 200 mls/hr CONT ARJUN Administration Insulin Glargine 20 unit 12/19/22 21:00 12/19/22 21:23 Insulin Glargine 100 Unit/Ml 3ml Pen SUBCUT 20 unit 2100 ARJUN Administration Insulin Human Lispro 0 unit 12/19/22 16:45 12/20/22 08:31 Insulin Lispro 100 Unit/Ml 3ml Vial SUBCUT Not Given ACHS [facility] Protocol Metoprolol Succinate 25 mg 12/19/22 15:00 12/20/22 08:35 Metoprolol Er 25 Mg Tablet PO 25 mg DAILY ARJUN Administration Pantoprazole Sodium 20 mg 12/20/22 06:00 12/20/22 05:[address] 20 Mg Tablet PO 20 mg 0600 ARJUN Administration Objective Ventilator Parameters: Ventilator Settings FiO2 0.5 Labs 12/20/22 05:44 12/20/22 05:44 Labs: Laboratory Results - last 24 hr 12/19/22 12/19/22 12/19/22 09:30 11:02 11:30 WBC RBC Hgb Hct MCV MCH MCHC RDW Plt Count Neut % (Auto) Lymph % (Auto) [place] % (Auto) Eos % (Auto) Baso % (Auto) Lymph # (Auto) [place] # (Auto) Baso # (Auto) Total Counted Seg Neutrophils % Band Neutrophils % Lymphocytes % (Manual) Atypical Lymphs % Monocytes % (Manual) Neutrophils # (Manual) RBC Morphology Anisocytosis PT INR APTT Sodium Potassium Chloride Carbon Dioxide BUN Creatinine Estimated GFR BUN/Creatinine Ratio Glucose Calcium Magnesium Total Bilirubin AST ALT Alkaline Phosphatase Total Creatine Kinase Troponin I 0.792 H* Total Protein Albumin Globulin Albumin/Globulin Ratio Vitamin B12 984 H Procalcitonin 0.64 H TSH 1.06 Urine Color Urine Appearance Urine pH Ur Specific Kamrar Urine Protein Urine Glucose (UA) Urine Ketones Urine Occult Blood Urine Nitrate Urine Bilirubin Urine Urobilinogen Ur Leukocyte Esterase Urine RBC Urine WBC Ur Squamous Epith Cells Amorphous Sediment Urine Bacteria Granular Casts Urine Mucus Ur Culture Indicated? Nasal Screen MRSA (PCR) Chlamy pneumoniae PCR Not detected Adenovirus (PCR) Not detected B.parapertussis DNA PCR Not detected Coronavirus OC43 (PCR) Not detected Coronavirus HKU1 (PCR) Not detected Coronavirus 229E (PCR) Not detected SARS-CoV-2 (PCR) Detected H Coronavirus NL63 (PCR) Not detected Human Metapneumovir PCR Not detected Influenza A (PCR) Not detected Influenza Type A (PCR) Not detected Influenza Type B (PCR) Not detected M. pneumoniae (PCR) Not detected Parainfluenza 1 (PCR) Not detected Parainfluenza 2 (PCR) Not detected Parainfluenza 3 (PCR) Not detected Parainfluenza 4 (PCR) Not detected RSV (PCR) Not detected Entero/Rhino (PCR) Not detected 12/19/22 12/19/22 12/19/22 12:30 14:45 15:00 WBC 3.2 L RBC 3.58 L Hgb 10.3 L Hct 30.3 L MCV 84.5 MCH 28.7 MCHC 33.9 RDW 15.8 H Plt Count 31 L* Neut % (Auto) Lymph % (Auto) [place] % (Auto) Eos % (Auto) Baso % (Auto) Lymph # (Auto) [place] # (Auto) Baso # (Auto) Total Counted Seg Neutrophils % Band Neutrophils % Lymphocytes % (Manual) Atypical Lymphs % Monocytes % (Manual) Neutrophils # (Manual) RBC Morphology Anisocytosis PT INR APTT 32 Sodium Potassium Chloride Carbon Dioxide BUN Creatinine Estimated GFR BUN/Creatinine Ratio Glucose Calcium Magnesium Total Bilirubin AST ALT Alkaline Phosphatase Total Creatine Kinase 03509 H Troponin I 0.641 H* Total Protein Albumin Globulin Albumin/Globulin Ratio Vitamin B12 Procalcitonin TSH Urine Color Yellow Urine Appearance Clear Urine pH 5.0 Ur Specific Kamrar >=1.030 H Urine Protein 2+ H Urine Glucose (UA) Negative Urine Ketones Negative Urine Occult Blood 3+ H Urine Nitrate Negative Urine Bilirubin Negative Urine Urobilinogen 1.0 Ur Leukocyte Esterase Negative Urine RBC None seen Urine WBC None seen Ur Squamous Epith Cells None seen Amorphous Sediment 1+ Urine Bacteria None seen Granular Casts 1-5/lpf Urine Mucus 1+ H Ur Culture Indicated? Cult not indicated Nasal Screen MRSA (PCR) Chlamy pneumoniae PCR Adenovirus (PCR) B.parapertussis DNA PCR Coronavirus OC43 (PCR) Coronavirus HKU1 (PCR) Coronavirus 229E (PCR) SARS-CoV-2 (PCR) Coronavirus NL63 (PCR) Human Metapneumovir PCR Influenza A (PCR) Influenza Type A (PCR) Influenza Type B (PCR) M. pneumoniae (PCR) Parainfluenza 1 (PCR) Parainfluenza 2 (PCR) Parainfluenza 3 (PCR) Parainfluenza 4 (PCR) RSV (PCR) Entero/Rhino (PCR) 12/19/22 12/19/22 12/19/22 15:50 19:15 19:15 WBC RBC Hgb Hct MCV MCH MCHC RDW Plt Count Neut % (Auto) Lymph % (Auto) [place] % (Auto) Eos % (Auto) Baso % (Auto) Lymph # (Auto) [place] # (Auto) Baso # (Auto) Total Counted Seg Neutrophils % Band Neutrophils % Lymphocytes % (Manual) Atypical Lymphs % Monocytes % (Manual) Neutrophils # (Manual) RBC Morphology Anisocytosis PT INR APTT 32 Sodium 136 L Potassium 4.0 Chloride 105 Carbon Dioxide 24 BUN 35 H Creatinine 1.72 H Estimated GFR 41 L BUN/Creatinine Ratio 20.3 Glucose 172 H Calcium 8.8 Magnesium Total Bilirubin AST ALT Alkaline Phosphatase Total Creatine Kinase 95913 H Cancelled Troponin I Total Protein Albumin Globulin Albumin/Globulin Ratio Vitamin B12 Procalcitonin TSH Urine Color Urine Appearance Urine pH Ur Specific Kamrar Urine Protein Urine Glucose (UA) Urine Ketones Urine Occult Blood Urine Nitrate Urine Bilirubin Urine Urobilinogen Ur Leukocyte Esterase Urine RBC Urine WBC Ur Squamous Epith Cells Amorphous Sediment Urine Bacteria Granular Casts Urine Mucus Ur Culture Indicated? Nasal Screen MRSA (PCR) Not detected Chlamy pneumoniae PCR Adenovirus (PCR) B.parapertussis DNA PCR Coronavirus OC43 (PCR) Coronavirus HKU1 (PCR) Coronavirus 229E (PCR) SARS-CoV-2 (PCR) Coronavirus NL63 (PCR) Human Metapneumovir PCR Influenza A (PCR) Influenza Type A (PCR) Influenza Type B (PCR) M. pneumoniae (PCR) Parainfluenza 1 (PCR) Parainfluenza 2 (PCR) Parainfluenza 3 (PCR) Parainfluenza 4 (PCR) RSV (PCR) Entero/Rhino (PCR) 12/19/22 12/19/22 12/20/22 21:20 23:34 05:44 WBC 3.0 L RBC 3.93 L Hgb 10.9 L Hct 32.8 L MCV 83.4 MCH 27.8 MCHC 33.3 RDW 15.8 H Plt Count 33 L* Neut % (Auto) Not Reportable Lymph % (Auto) Not Reportable [place] % (Auto) Not Reportable Eos % (Auto) Not Reportable Baso % (Auto) Not Reportable Lymph # (Auto) Not Reportable [place] # (Auto) Not Reportable Baso # (Auto) Not Reportable Total Counted 50 Seg Neutrophils % 36.0 L Band Neutrophils % 14.0 H Lymphocytes % (Manual) 30.0 Atypical Lymphs % 4.0 H Monocytes % (Manual) 16.0 H Neutrophils # (Manual) 1500 L RBC Morphology Not Reportable Anisocytosis 1+ H PT 12.8 H INR 1.1 APTT Sodium 136 L Potassium 3.8 Chloride 101 Carbon Dioxide 27 BUN 34 H Creatinine 1.63 H Estimated GFR 44 L BUN/Creatinine Ratio 20.9 Glucose 78 L Calcium 8.8 Magnesium 1.5 L Total Bilirubin 0.5 AST 206 H ALT 71 H Alkaline Phosphatase 44 Total Creatine Kinase 18573 H 21000 H Troponin I 0.399 H* Total Protein 6.8 Albumin 3.6 Globulin 3.2 Albumin/Globulin Ratio 1.1 Vitamin B12 Procalcitonin TSH Urine Color Urine Appearance Urine pH Ur Specific Kamrar Urine Protein Urine Glucose (UA) Urine Ketones Urine Occult Blood Urine Nitrate Urine Bilirubin Urine Urobilinogen Ur Leukocyte Esterase Urine RBC Urine WBC Ur Squamous Epith Cells Amorphous Sediment Urine Bacteria Granular Casts Urine Mucus Ur Culture Indicated? Nasal Screen MRSA (PCR) Chlamy pneumoniae PCR Adenovirus (PCR) B.parapertussis DNA PCR Coronavirus OC43 (PCR) Coronavirus HKU1 (PCR) Coronavirus 229E (PCR) SARS-CoV-2 (PCR) Coronavirus NL63 (PCR) Human Metapneumovir PCR Influenza A (PCR) Influenza Type A (PCR) Influenza Type B (PCR) M. pneumoniae (PCR) Parainfluenza 1 (PCR) Parainfluenza 2 (PCR) Parainfluenza 3 (PCR) Parainfluenza 4 (PCR) RSV (PCR) Entero/Rhino (PCR) Exam Vital Signs (past 8 hours): - 12/20/22 03:00 12/20/22 03:00 12/20/22 03:06 Temperature Pulse Rate 67 Respiratory Rate 16 Blood Pressure 88/53 L 118/54 L Pulse Oximetry 90 L Oxygen Delivery Method Oxygen Flow Rate 0.5 0.5 0.5 12/20/22 03:06 12/20/22 03:52 12/20/22 04:00 Temperature 98.5 F Pulse Rate 66 66 65 Respiratory Rate 10 L 12 16 Blood Pressure Pulse Oximetry 98 98 98 Oxygen Delivery Method Oxygen Flow Rate 0.5 0.5 12/20/22 04:00 12/20/22 04:14 12/20/22 05:00 Temperature Pulse Rate 81 67 Respiratory Rate 29 H 14 Blood Pressure 99/52 L Pulse Oximetry 97 99 Oxygen Delivery Method Oxygen Flow Rate 12/20/22 05:00 12/20/22 06:00 12/20/22 06:00 Temperature Pulse Rate 68 Respiratory Rate 14 Blood Pressure 99/57 L 112/57 L Pulse Oximetry 97 Oxygen Delivery Method Oxygen Flow Rate 12/20/22 06:31 12/20/22 06:45 12/20/22 07:00 Temperature Pulse Rate 66 68 69 Respiratory Rate 20 10 L 9 L Blood Pressure Pulse Oximetry 97 80 L 98 Oxygen Delivery Method Oxygen Flow Rate 12/20/22 07:00 12/20/22 07:00 12/20/22 07:15 Temperature Pulse Rate 65 Respiratory Rate 10 L Blood Pressure 111/57 L Pulse Oximetry 95 Oxygen Delivery Method Nasal Cannula Oxygen Flow Rate 12/20/22 07:30 12/20/22 07:45 12/20/22 08:00 Temperature 97.8 F Pulse Rate 73 77 72 Respiratory Rate 24 22 17 Blood Pressure Pulse Oximetry 98 97 97 Oxygen Delivery Method Oxygen Flow Rate 12/20/22 08:00 12/20/22 08:15 12/20/22 08:30 Temperature Pulse Rate 80 77 Respiratory Rate 21 28 H Blood Pressure 107/58 L Pulse Oximetry 100 99 Oxygen Delivery Method Oxygen Flow Rate 12/20/22 08:35 12/20/22 08:45 12/20/22 09:00 Temperature Pulse Rate 80 78 75 Respiratory Rate 25 H 21 Blood Pressure 107/58 L Pulse Oximetry 100 93 Oxygen Delivery Method Oxygen Flow Rate 12/20/22 09:00 12/20/22 09:05 12/20/22 09:15 Temperature Pulse Rate 70 68 Respiratory Rate 9 L Blood Pressure 98/57 L 98/57 L Pulse Oximetry 100 Oxygen Delivery Method Oxygen Flow Rate 12/20/22 09:30 Temperature Pulse Rate 67 Respiratory Rate 13 Blood Pressure Pulse Oximetry 97 Oxygen Delivery Method Oxygen Flow Rate Oxygen Delivery Method Nasal Cannula Oxygen Flow Rate 0.5 Quality TeleICU VTE Deep Vein Thrombosis/Pulmonary Embolism Present on Admission: No Assessment & Plan Assessment & Plan narrative: patient seen on daily rounds no new complaints appears comfortable no sign of active bleeding 77 year old male with PMHx of CKD, DM, HTN, MGUS, Anemia, thrombocytopenia admitted to ICU with: Fall acute renal failure rhabdomyolysis thrombocytopenia COVID+ currently afebrile, HD [place] [address] improving trop .39 creat 1.6 cxr- nad suggest -neurochecks/seizure precautions -avoid benzos/opidos -keep map above 65 -keep sat above 92% -as/statin -serial ekg/trop -check ck q12 -check echo -check abdominal sono -check cbc daily, consider heme eval, monitor for bleeding -ivf can consider decreasing rate with adequate urine output -covid does not appear to be active can hold off tx -monitor ins/outs -keep glucose 140-180s -gi/dvt ppx -please call eICU if condition changes
[2022-12-20 12:32] LABS: Creatine Kinase 10856 U/L (55-170)
--- NOTE | 2022-12-20 14:19 | CM.DANOTE ---
DCP Assessment Note Patient is a 77yo M here following NSTEMI, rhabdomyolysis, and COVID diagnosis. PCP Indra Vinson Medicare and [facility] [employer] SOCIAL WORKER reviewed EMR. COMMUNITY MENTAL HE[employer] SOCIAL WORKER called in room phone for assessment due to pos COVID. Patient reports living alone in [place]. Patient's emergency contact is sister Renee ([phone]). Patient reports being IADLs/drives at baseline. Patient has a cane, crutches, grab bars, and bedside commode that he uses as needed. Patient reports he has been up and moving but is worried about navigating his 7 stairs to get into his house. Patient was accompanied at bedside by friend Shelbie. Patient reports he has lots of friends and neighbors that help him as needed. Patient reports Shelbie can likely drive him home, if not, another friend can. Patient reports he has had HH before in 2007 when he got his hip replaced but can't remember the name of the company. Reports he wouldn't be opposed to HH but doesn't think he'll need it. Patient denies other resources at this time. Patient reports he is pretty self sufficient at home. Plan: d/c home likely when medically stable. Transport likely with friend. CM team will continue to follow closely. DAMIAN Lainez Discharge Planning/Care Management CM Discharge Assessment Start: 12/20/22 14:16 Freq: Status: Active Protocol: Document 12/20/22 14:17 (Rec: 12/20/22 14:19 [id number]) Discharge Planning Assessment Assigned Public Address Announcer DAMIAN Thomas DPOA/Assigned Designee Name Renee Rush () Contact Information [phone] Advance Directives? No History Provided By Patient,Medical Record Prior Living Arrangements House Household Members none Type of transporation used prior to Drives own vehicle admit Independent with ADL's Yes Is patient alert and oriented? Yes DME Already Rented / Owned Cane,Bedside Commode,Crutches Comment grab bars Discharge Plan Home Transportation Arrangement friend Shelbie Referrals Initiated None needed Whiteboard Updated in Patient Room with No name and ext. # of Public Address Announcer Comment did not enter room due to positive COVID test Review Status In Process Next Review Type Continued Stay Review
[2022-12-20] MEDS: INSULIN LISPRO 100 UNIT/ML 3ML VIAL SUBCUT (16:53)
--- NOTE | 2022-12-20 17:47 | PM.ICURNDS ---
- :: This patient was seen via real time interactive two-way audiovisual telecommunication. Note: Pt comfortable in bed, no complain, UOP around 100 ml/ hr, CK trending down, Cr improved, lower LR to 100 ml/hr.
[2022-12-20 19:25] LABS: BUN Creatinine Ratio 22.4 (6-22); Blood Urea Nitrogen 36 mg/dL (9-20); Calcium 8.5 mg/dL (8.4-10.2); Carbon Dioxide 26 mmol/L (22-32); Chloride 97 mmol/L (98-107); Creatine Kinase 9799 U/L (55-170); Estimated Glomerular Filt Rate 44 mL/min (>60); Glucose 169 mg/dL (80-110); HEMOLYSIS 26 (0-50); Potassium 3.8 mmol/L (3.4-5.1); Sodium 130 mmol/L (137-145)
[2022-12-20] MEDS: INSULIN GLARGINE 100 UNIT/ML 3ML PEN 20 UNIT SUBCUT (21:08)
[2022-12-20] MEDS: ACETAMINOPHEN 325 MG TABLET 650 MG PO (21:08)
[2022-12-20] MEDS: OXYCODONE IR 5 MG TABLET PO (21:09)
[2022-12-21] VITALS (97 sets, daily range): BP systolic 77–119; BP diastolic 46–68; PULSE 55–81; RESP 4–33; TEMP 36.2–37; O2SAT 86–100
[2022-12-21] MEDS: LACTATED RINGERS 1,000 ML 100 ML IV ×3 (01:30→20:02)
[2022-12-21 04:34] LABS: Hematocrit 26.9 % (41-53); Hemoglobin 9.3 g/dL (13.5-17.5); Mean Corpuscular HGB Conc 34.6 % (30-36); Mean Corpuscular Hemoglobin 28.9 PG (26-34); Mean Corpuscular Volume 83.5 fL (80-100); Red Blood Cell Count 3.22 X10^6/uL (4.5-5.9); Red Cell Distribution Width 15.3 % (11.6-14.8)
[2022-12-21 04:51] LABS: White Blood Cell Count 1.8 X10^3/uL (4.5-11.0)
[2022-12-21 04:52] LABS: Add Manual Diff / Slide Review YES; Platelet Count 27 X10^3/uL (150-400)
[2022-12-21 05:02] LABS: Magnesium 1.5 mg/dL (1.6-2.3)
[2022-12-21 05:05] LABS: Alanine Aminotransferase 62 IU/L (<50); Albumin 2.7 g/dL (3.5-5.0); Albumin Globulin Ratio 0.9 (1.0-2.8); Alkaline Phosphatase 40 U/L (38-126); Aspartate Aminotransferase 173 IU/L (17-59); BUN Creatinine Ratio 20.7 (6-22); Bilirubin Total 0.4 mg/dL (0.2-1.3); Blood Urea Nitrogen 29 mg/dL (9-20); Calcium 8.1 mg/dL (8.4-10.2); Carbon Dioxide 27 mmol/L (22-32); Chloride 103 mmol/L (98-107); Estimated Glomerular Filt Rate 52 mL/min (>60); Globulin 2.9 g/dL (1.7-4.1); Glucose 67 mg/dL (80-110); HEMOLYSIS < 15 (0-50); Magnesium 1.5 mg/dL (1.6-2.3); Potassium 3.4 mmol/L (3.4-5.1); Sodium 136 mmol/L (137-145); Total Protein 5.6 g/dL (6.3-8.2)
[2022-12-21 05:49] LABS: Creatine Kinase 7915 U/L (55-170)
[2022-12-21] MEDS: PANTOPRAZOLE DR 20 MG TABLET PO (06:15)
[2022-12-21 07:43] LABS: Neutrophils Absolute Manual 936 /uL (3000-5900); Total Cells Counted 50
[2022-12-21 07:44] LABS: Anisocytosis 1+; Platelet Estimate Decreased on smear
--- NOTE | 2022-12-21 08:56 | PM.PN.EICU ---
Subjective Subjective IF CAMERA ACTIVATED, patient seen via real-time interactive audiovisual communication: Camera activated Consent obtained for tele-director of customer acquisition care: Yes Patient Location: ICU Provider location (State): [place] Other participants/roles: bedside nursing team Interval history: no acute events overnight no complaints Current Medications Current Medications Medications: Home Medications atorvastatin 10 mg tablet 5 mg PO DAILY 11/28/19 [History Confirmed 12/19/22] omeprazole 20 mg tablet,delayed release 20 mg PO DAILY 11/28/19 [History Confirmed 12/19/22] mecobalamin (vitamin B12) 1,000 mcg chewable tablet 1,000 mcg PO DAILY #100 tabs 12/13/19 [Rx Confirmed 12/19/22] metformin 500 mg tablet 500 mg PO BID 08/06/20 [History Confirmed 12/19/22] dulaglutide 1.5 mg/0.5 mL subcutaneous pen injector (Trulicity) 3 mg SUBCUT QWEEK 12/13/20 [History Confirmed 12/19/22] brimonidine 0.15 % eye drops 1 drp EYE-LEFT BID 12/19/22 [History Confirmed 12/19/22] dorzolamide 22.3 mg-timolol 6.8 mg/mL eye drops 1 drp EYE-LEFT BID 12/19/22 [History Confirmed 12/19/22] Visit Medications (administered) Generic Name Dose Route Start Last Admin Trade Name Freq PRN Reason Stop Dose Admin Acetaminophen 650 mg 12/19/22 14:08 12/20/22 21:08 Acetaminophen 325 Mg Tablet PO 650 mg Q6H PRN Administration Fever/Mild Pain (1-3) Aspirin 325 mg 12/20/22 09:00 12/20/22 08:34 Aspirin Ec 325 Mg Tablet PO 325 mg DAILY ARJUN Administration Atorvastatin Calcium 10 mg 12/20/22 09:00 12/20/22 08:34 Atorvastatin 20 Mg Tablet PO 10 mg DAILY ARJUN Administration Lactated Ringer's 1,000 mls @ 100 mls/hr 12/19/22 15:30 12/21/22 01:30 Lactated Ringers IV 100 mls/hr CONT ARJUN Administration Insulin Human Lispro 0 unit 12/19/22 16:45 12/21/22 07:38 Insulin Lispro 100 Unit/Ml 3ml Vial SUBCUT Not Given ACHS [facility] Protocol Metoprolol Succinate 25 mg 12/19/22 15:00 12/20/22 08:35 Metoprolol Er 25 Mg Tablet PO 25 mg DAILY ARJUN Administration Oxycodone HCl 5 mg 12/19/22 14:08 12/20/22 21:09 Oxycodone Ir 5 Mg Tablet PO 5 mg Q3H PRN Administration Pain, Moderate (4-6) Pantoprazole Sodium 20 mg 12/20/22 06:00 12/21/22 06:[address] 20 Mg Tablet PO 20 mg 0600 ARJUN Administration Objective Ventilator Parameters: Ventilator Settings FiO2 0.5 Labs 12/21/22 04:05 12/21/22 04:05 Labs: Laboratory Results - last 24 hr 12/20/22 12/20/22 12/21/22 12:02 19:00 04:05 WBC 1.8 L* RBC 3.22 L Hgb 9.3 L Hct 26.9 L MCV 83.5 MCH 28.9 MCHC 34.6 RDW 15.3 H Plt Count 27 L* Neut % (Auto) Not Reportable Lymph % (Auto) Not Reportable [place] % (Auto) Not Reportable Eos % (Auto) Not Reportable Baso % (Auto) Not Reportable Lymph # (Auto) Not Reportable [place] # (Auto) Not Reportable Baso # (Auto) Not Reportable Total Counted 50 Seg Neutrophils % 40.0 Band Neutrophils % 12.0 H Lymphocytes % (Manual) 38.0 Monocytes % (Manual) 10.0 Neutrophils # (Manual) 936 L Platelet Estimate Decreased on smear RBC Morphology See below Anisocytosis 1+ H Sodium 130 L 136 L Potassium 3.8 3.4 Chloride 97 L 103 Carbon Dioxide 26 27 BUN 36 H 29 H Creatinine 1.61 H 1.40 H Estimated GFR 44 L 52 L BUN/Creatinine Ratio 22.4 H 20.7 Glucose 169 H 67 L D Calcium 8.5 8.1 L Magnesium 1.5 L Total Bilirubin AST ALT Alkaline Phosphatase Total Creatine Kinase 69247 H 9799 H Troponin I Total Protein Albumin Globulin Albumin/Globulin Ratio 12/21/22 04:05 WBC RBC Hgb Hct MCV MCH MCHC RDW Plt Count Neut % (Auto) Lymph % (Auto) [place] % (Auto) Eos % (Auto) Baso % (Auto) Lymph # (Auto) [place] # (Auto) Baso # (Auto) Total Counted Seg Neutrophils % Band Neutrophils % Lymphocytes % (Manual) Monocytes % (Manual) Neutrophils # (Manual) Platelet Estimate RBC Morphology Anisocytosis Sodium Potassium Chloride Carbon Dioxide BUN Creatinine Estimated GFR BUN/Creatinine Ratio Glucose Calcium Magnesium 1.5 L Total Bilirubin 0.4 AST 173 H ALT 62 H Alkaline Phosphatase 40 Total Creatine Kinase 7915 H Troponin I 0.140 H* Total Protein 5.6 L Albumin 2.7 L Globulin 2.9 Albumin/Globulin Ratio 0.9 L Exam Vital Signs (past 8 hours): - 12/21/22 01:00 12/21/22 01:00 12/21/22 01:00 Temperature Pulse Rate 59 L 62 Respiratory Rate 20 18 Blood Pressure 99/57 L 99/57 L Pulse Oximetry 95 98 Oxygen Delivery Method Oxygen Flow Rate 2 12/21/22 01:15 12/21/22 01:30 12/21/22 01:45 Temperature Pulse Rate 61 59 L 60 Respiratory Rate 20 15 14 Blood Pressure Pulse Oximetry 97 98 99 Oxygen Delivery Method Oxygen Flow Rate 12/21/22 02:00 12/21/22 02:00 12/21/22 02:00 Temperature Pulse Rate 60 59 L Respiratory Rate 18 13 Blood Pressure 101/56 L 101/56 L Pulse Oximetry 99 99 Oxygen Delivery Method Oxygen Flow Rate 3 2 2 12/21/22 02:15 12/21/22 02:30 12/21/22 02:45 Temperature Pulse Rate 60 56 L 57 L Respiratory Rate 18 11 L 14 Blood Pressure Pulse Oximetry 96 97 95 Oxygen Delivery Method Oxygen Flow Rate 12/21/22 03:00 12/21/22 03:00 12/21/22 03:00 Temperature Pulse Rate 60 Respiratory Rate 12 Blood Pressure 84/50 L Pulse Oximetry 91 Oxygen Delivery Method Nasal Cannula Oxygen Flow Rate 2 2 12/21/22 03:06 12/21/22 03:06 12/21/22 03:10 Temperature Pulse Rate 62 Respiratory Rate 17 Blood Pressure 104/58 L 77/46 L Pulse Oximetry 95 Oxygen Delivery Method Oxygen Flow Rate 2 2 2 12/21/22 03:10 12/21/22 03:11 12/21/22 03:11 Temperature Pulse Rate 71 72 Respiratory Rate 19 22 Blood Pressure 88/52 L Pulse Oximetry 98 100 Oxygen Delivery Method Oxygen Flow Rate 2 2 12/21/22 03:15 12/21/22 03:30 12/21/22 03:45 Temperature Pulse Rate 62 55 L 55 L Respiratory Rate 21 8 L 11 L Blood Pressure Pulse Oximetry 100 100 97 Oxygen Delivery Method Oxygen Flow Rate 12/21/22 03:58 12/21/22 03:58 12/21/22 04:00 Temperature Pulse Rate 59 L 61 Respiratory Rate 19 13 Blood Pressure 106/58 L Pulse Oximetry 100 100 Oxygen Delivery Method Oxygen Flow Rate 2 2 2 12/21/22 04:00 12/21/22 04:15 12/21/22 04:16 Temperature 97.2 F L Pulse Rate 57 L 58 L Respiratory Rate 10 L 10 L Blood Pressure 100/55 L Pulse Oximetry 100 100 Oxygen Delivery Method Oxygen Flow Rate 2 2 12/21/22 04:30 12/21/22 04:45 12/21/22 05:00 Temperature Pulse Rate 55 L 58 L 55 L Respiratory Rate 6 L 11 L 23 Blood Pressure 119/57 L Pulse Oximetry 100 86 L 100 Oxygen Delivery Method Oxygen Flow Rate 3 12/21/22 05:00 12/21/22 05:01 12/21/22 05:01 Temperature Pulse Rate 55 L 55 L Respiratory Rate 7 L 12 Blood Pressure 119/57 L Pulse Oximetry 100 99 Oxygen Delivery Method Oxygen Flow Rate 12/21/22 05:15 12/21/22 05:30 12/21/22 05:45 Temperature Pulse Rate 57 L 59 L 64 Respiratory Rate 16 16 22 Blood Pressure Pulse Oximetry 100 100 100 Oxygen Delivery Method Oxygen Flow Rate 12/21/22 06:00 12/21/22 06:00 12/21/22 06:11 Temperature Pulse Rate 61 57 L Respiratory Rate 17 13 Blood Pressure 110/64 Pulse Oximetry 98 100 Oxygen Delivery Method Oxygen Flow Rate 2 2 2 12/21/22 06:15 12/21/22 06:30 12/21/22 06:45 Temperature Pulse Rate 60 65 66 Respiratory Rate 11 L 22 16 Blood Pressure Pulse Oximetry 100 100 100 Oxygen Delivery Method Oxygen Flow Rate 12/21/22 07:00 12/21/22 07:01 12/21/22 07:01 Temperature Pulse Rate 66 65 Respiratory Rate 12 17 Blood Pressure 109/68 Pulse Oximetry 99 96 Oxygen Delivery Method Oxygen Flow Rate 12/21/22 07:15 12/21/22 07:30 12/21/22 07:45 Temperature Pulse Rate 68 57 L 65 Respiratory Rate 19 9 L 16 Blood Pressure Pulse Oximetry 100 100 99 Oxygen Delivery Method Oxygen Flow Rate 12/21/22 08:00 12/21/22 08:00 Temperature Pulse Rate 68 Respiratory Rate 18 Blood Pressure 116/57 L Pulse Oximetry 100 Oxygen Delivery Method Oxygen Flow Rate Oxygen Delivery Method Nasal Cannula Oxygen Flow Rate 2 Quality TeleICU VTE Deep Vein Thrombosis/Pulmonary Embolism Present on Admission: No Assessment & Plan Assessment & Plan narrative: patient seen on daily rounds comfortable 77 year old male with PMHx of CKD, DM, HTN, MGUS, Anemia, thrombocytopenia admitted to ICU with: Fall acute renal failure rhabdomyolysis thrombocytopenia COVID+ currently afebrile, HD stable mental status intact wbc 1.4 platelets 27 ck 7900 improving creat 1.4 suggest -neurochecks/seizure precautions -avoid benzos/opiods -keep map above 65 -keep sat above 92% -asa/statin -check q12 -IV @100cc/hr adeqaute urine output at this time -does not appear toxic, hold off abx for now, check wbc/platelets again -consider heme/onc eval -monitor ins/outs -replace lytes prn -keep glucose 140-180s -gi/dvt ppx -ok to downgrade from ICU -please call eICU if condition changes total ccm time 45 mins
[2022-12-21] MEDS: METOPROLOL ER 25 MG TABLET PO (10:02)
[2022-12-21] MEDS: ASPIRIN EC 325 MG TABLET PO (10:02)
[2022-12-21] MEDS: ATORVASTATIN 20 MG TABLET 10 MG PO (10:02)
[2022-12-21] MEDS: MAGNESIUM CHLORIDE 64 MG TABLET 128 MG PO (10:03)
[2022-12-21] MEDS: POTASSIUM CHLORIDE 20 MEQ TAB 40 MEQ PO (10:03)
--- NOTE | 2022-12-21 12:55 | PT.IIE ---
Current Diagnoses Thrombocytopenia, unspecified (12/19/22) Non-ST elevation (NSTEMI) myocardial infarction (12/19/22) Weakness (12/19/22) Traumatic ischemia of muscle, initial encounter (12/19/22) COVID-19 (12/19/22) Medical History (Last Reviewed 12/19/22 @ 14:40 by Duran Liang MD) Anemia, chronic renal failure Cataracts, bilateral Diabetes Hyperlipidemia Hypertension Physical Therapy Inpatient Evaluation/Re-Eval M1 PT/OT-IP Prior Functional Status Start: 12/21/22 12:07 Freq: NEEDED Status: Active Protocol: Document 12/21/22 12:55 AW (Rec: 12/21/22 13:13 AW [id number]) Medical Review Prior Functional Status Medical History Reviewed Yes Communication WNL Mobility and Gait Modified independent with use of cane secondary to knee pain . Frequently ambulates without cane. Activities of Daily Living and IADL's Independent. 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 Manages all finances and medications without assist . Social History Household Members none Living Arrangements House Number of Floors (Floors) Two Floors Number of Stairs To Enter/Railing? Home is split level with 2 LEIF . 7 steps with bilateral rails up from entry landing to living room and kitchen. From landing, down 7 steps with unilateral rail to bedroom and bathroom. 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 Has friends and neighbors who are working together to support the pt at discharge - including meals and other assist as needed. M2 PT-IP Current Condition Start: 12/21/22 12:07 Freq: NEEDED Status: Active Protocol: Document 12/21/22 12:55 AW (Rec: 12/21/22 13:13 AW [id number]) Physical Therapy Current Condition Current Condition Evaluation Date 12/21/22 Treatment Diagnosis fall, rhabdomyolysis, COVID, impaired mobility Onset Date 12/18/22 M3 PT-IP Subjective Start: 12/21/22 12:07 Freq: NEEDED Status: Active Protocol: Document 12/21/22 12:55 AW (Rec: 12/21/22 13:13 AW [id number]) Subjective Physical Therapy Visit Type Type Initial Evaluation Visit Start Time 12:33 Visit Stop Time 12:55 Total Visit Minutes 22 Notes Pt's friend, Shelbie, is present throughout. Number of NURSING TECHN Visits 0 Physical Therapy Visit Comments Patient Comments Pt is willing to participate with PT. I need to keep my strength up. Patient Goals Return home with support Therapy Pain Assessment Pain When Pain Assessed During Mobility Pain Present Pain Present Denied Pain M4 PT-IP Mobility and Gait Start: 12/21/22 12:07 Freq: NEEDED Status: Active Protocol: Document 12/21/22 12:55 AW (Rec: 12/21/22 13:13 AW [id number]) PT-Transfer Assessment Sit to and From Stand Sit to and from Stand Standby Assistance,Use of Upper Extremities Equipment Transfer Assistive Device Gait Belt,Straight Cane,Front Wheeled Walker Transfers Transfer Destination Chair Transfer Technique Stand Step Pivot Transfer Ability Level of Assist Standby Assistance Comments Mobility Comments Pt was sitting up in the chair as PT arrived. VS: BP 105/63 HR 70 SpO2 98% on room air. Pt stood with SBA and initiated gait with SPC as per baseline, requiring CGA. Pt transitioned to FWW as he reported improved confidence with the walker. He continued to walk 30 feet using FWW with no more than SBA and line management. VS after mobility: BP 101/56 HR 71 SpO2 100% on room air. Gait Assessment Gait Gait Assistance Required: Standby Assistance,Contact Guard Assist Distance (Feet) 40 Assistive Devices Assistive Device Gait Belt,Straight Cane,Front Wheeled Walker Gait Deviations General Gait Pattern Antalgic,Decreased Stride Length,Decreased Feet Clearance Factors Limiting Gait Function Factors Limiting Gait Function Decreased Activity Tolerance, Pain Comments Gait Comments See mobility comments. Safety vastly improved with FWW. Stair Climbing Assessment Comments Stair Climbing Comments Not assessed today per pt request. PT-Balance Assessment Sitting Balance and Reactions Static Sitting Balance Ability Normal Dynamic Sitting Balance Ability Good Standing Balance and Reactions Static Standing Balance Ability Good Dynamic Standing Balance Ability Good Device Used best with FWW M5 PT-IP Objective Assessments Start: 12/21/22 12:07 Freq: NEEDED Status: Active Protocol: Document 12/21/22 12:55 AW (Rec: 12/21/22 13:13 AW [id number]) Orientation Orientation/Cognition Level of Alertness Alert Orientation Name,Day of Week,Place, Situation Language Function Ability No Deficits Noted Safety Awareness Understands Safety Issues Gross Range of Motion Upper Extremity ROM Assessment Within Functional Limits Lower Extremity ROM Assessment Within Functional Limits Strength Upper Extremity Strength Assessment Within Functional Limits Lower Extremity Strength Assessment Within Functional Limits Comments Strength Comments BLE strength grossly 5/5. Sensation Assessment Sensation Gross Sensation WNL M7 PT-IP Assessment and Plan Start: 12/21/22 12:07 Freq: NEEDED Status: Active Protocol: Document 12/21/22 12:55 AW (Rec: 12/21/22 13:13 AW [id number]) PT Summary Assessment and Plan Potential Rehabilitation Potential Good Status of Condition at Evaluation Evolving Summary Impairments Balance,Bed Mobility,Transfers ,Gait,Activity Tolerance Assessment Summary Juvenal is a 77 yo man seen for PT evaluation while admitted in the context of a fall and subsequent rhabdomyolysis. He was incidentally found to be COVID positive. Pt denies other falls. PMH includes thrombocytopenia (platelets 27 on today's draw), CKD, diabetes mellitus, HTN, and MGUS. Pt is independent in all regards at baseline but does use a SPC for mobility ~50% of the time secondary to chronic knee pain. CLOF: Pt presents with solid BLE strength and is able to transfer and ambulate using FWW with no more than SBA. Gait with SPC was significantly more unsteady and pt agreed FWW is the best device for him at this time. Gait distance limited to 40 feet due to poor activity tolerance. Pt is very motivated to return home and PT feels it is likely pt will progress to safe home discharge with assist (to be provided by friends and neighbors). PT further recommends HH PT at discharge to progress pt back toward independent PLOF. Goals Bed Mobility Goal Independent Transfer Goal Independent,Front Wheeled Walker Gait Goal Independent,Front Wheel Walker Gait Distance 100 Other Goals - up/down 7 steps with single rail and SBA - progress gait to mod I with SPC Days to Meet Goals 6 Frequency of Treatment Frequency Of Treatment Once a Day Treatment Plan Physical Therapy Treatment Plan Bed Mobility Training,Transfer Training,Gait Training, Therapeutic Exercise,Balance Retraining,Discharge Planning, Hot or Cold Pack,Neuromuscular Re-ed Other Recommendations and Next Treatment assess stairs Focus Precautions Other Precautions COVID + Recommendations To Nursing Amount of Assist Needed Standby Assistance Discharge Recommendations PT Discharge Recommendations Home with Assistance,Home Health Equipment Needed for Home Before may need FWW Discharge Transportation Needs at Discharge Private Vehicle
--- NOTE | 2022-12-21 13:06 | PM.PN.1 ---
Subjective Subjective Date Patient Seen: 12/21/22 Time Patient Seen: 13:06 Interval history: Patient is well known to me. Reviewed ER workup at [facility] and here at [facility]. Reviewed hospitalization notes, diagnostics. Patient is slowly improving. Patient was just finishing physical therapy when I came in. He is doing well with a walker and is very weak but is improving. They will continue to work with them. Patient states he is eating more than he usually does but has eaten half a sandwich for lunch. Patient denies any chest pain or trouble breathing. He just feels weak. Patient with COVID-19 illness. Had 2 separate episodes where he was down for 2-4 hours unable to get back up. Twelve point review of systems otherwise negative Exam Vital Signs (past 8 hours): - 12/21/22 05:15 12/21/22 05:30 12/21/22 05:45 Temperature Pulse Rate 57 L 59 L 64 Respiratory Rate 16 16 22 Blood Pressure Pulse Oximetry 100 100 100 Oxygen Delivery Method Oxygen Flow Rate 12/21/22 06:00 12/21/22 06:00 12/21/22 06:11 Temperature Pulse Rate 61 57 L Respiratory Rate 17 13 Blood Pressure 110/64 Pulse Oximetry 98 100 Oxygen Delivery Method Oxygen Flow Rate 2 2 2 12/21/22 06:15 12/21/22 06:30 12/21/22 06:45 Temperature Pulse Rate 60 65 66 Respiratory Rate 11 L 22 16 Blood Pressure Pulse Oximetry 100 100 100 Oxygen Delivery Method Oxygen Flow Rate 12/21/22 07:00 12/21/22 07:00 12/21/22 07:01 Temperature Pulse Rate 66 Respiratory Rate 12 Blood Pressure 109/68 Pulse Oximetry 99 Oxygen Delivery Method Nasal Cannula Oxygen Flow Rate 12/21/22 07:01 12/21/22 07:15 12/21/22 07:30 Temperature Pulse Rate 65 68 57 L Respiratory Rate 17 19 9 L Blood Pressure Pulse Oximetry 96 100 100 Oxygen Delivery Method Oxygen Flow Rate 12/21/22 07:45 12/21/22 08:00 12/21/22 08:00 Temperature Pulse Rate 65 68 Respiratory Rate 16 18 Blood Pressure 116/57 L Pulse Oximetry 99 100 Oxygen Delivery Method Oxygen Flow Rate 12/21/22 08:15 12/21/22 08:30 12/21/22 08:45 Temperature 97.8 F Pulse Rate 60 71 66 Respiratory Rate 9 L 18 16 Blood Pressure Pulse Oximetry 100 100 100 Oxygen Delivery Method Oxygen Flow Rate 12/21/22 09:00 12/21/22 09:01 12/21/22 09:01 Temperature Pulse Rate 67 64 Respiratory Rate 15 13 Blood Pressure 101/54 L Pulse Oximetry 95 99 Oxygen Delivery Method Oxygen Flow Rate 12/21/22 10:00 12/21/22 10:00 12/21/22 10:01 Temperature Pulse Rate 60 63 Respiratory Rate 10 L 14 Blood Pressure 91/52 L Pulse Oximetry 98 96 Oxygen Delivery Method Oxygen Flow Rate 12/21/22 10:01 12/21/22 10:02 12/21/22 10:15 Temperature Pulse Rate 78 65 Respiratory Rate 16 Blood Pressure 102/55 L 102/55 L Pulse Oximetry 98 Oxygen Delivery Method Oxygen Flow Rate 12/21/22 10:30 12/21/22 10:30 12/21/22 10:45 Temperature Pulse Rate 62 71 63 Respiratory Rate 14 13 Blood Pressure 102/52 L Pulse Oximetry 98 95 Oxygen Delivery Method Oxygen Flow Rate 12/21/22 11:00 12/21/22 11:00 12/21/22 11:13 Temperature Pulse Rate 64 65 Respiratory Rate 11 L 20 Blood Pressure 102/52 L Pulse Oximetry 97 97 Oxygen Delivery Method Oxygen Flow Rate 12/21/22 11:13 12/21/22 11:15 12/21/22 11:19 Temperature Pulse Rate 68 79 Respiratory Rate 16 19 Blood Pressure 100/56 L Pulse Oximetry 97 Oxygen Delivery Method Oxygen Flow Rate 12/21/22 11:21 12/21/22 11:30 12/21/22 11:45 Temperature Pulse Rate 72 67 Respiratory Rate 20 Blood Pressure 99/55 L Pulse Oximetry 100 98 Oxygen Delivery Method Oxygen Flow Rate 12/21/22 11:55 12/21/22 12:00 12/21/22 12:00 Temperature 97.6 F Pulse Rate 67 67 Respiratory Rate 18 23 Blood Pressure 105/62 Pulse Oximetry 100 98 Oxygen Delivery Method Oxygen Flow Rate 12/21/22 12:00 12/21/22 12:15 12/21/22 12:30 Temperature Pulse Rate 67 77 Respiratory Rate 18 26 H Blood Pressure 105/63 Pulse Oximetry 99 99 Oxygen Delivery Method Oxygen Flow Rate 12/21/22 12:47 12/21/22 12:50 12/21/22 12:50 Temperature Pulse Rate 74 69 Respiratory Rate 19 15 Blood Pressure 101/56 L Pulse Oximetry 100 Oxygen Delivery Method Oxygen Flow Rate 12/21/22 13:00 Temperature Pulse Rate 70 Respiratory Rate 28 H Blood Pressure Pulse Oximetry 100 Oxygen Delivery Method Oxygen Flow Rate Oxygen Delivery Method Nasal Cannula Oxygen Flow Rate 2 Narrative Exam Narrative: Afebrile. Blood pressure 100/70 Patient alert and oriented no apparent distress. Patient is alert and oriented x3 and a good historian Patient with large ecchymosis over right frontal area and periorbital. No hematoma. Separate Center frontal abrasion with ecchymosis but no evidence of hematoma HEENT pupils are equal round and reactive to light, sclera nonicteric, extraocular movements intact. Oropharynx without erythema or exudate mucous membranes moist and pink Neck: Supple without adenopathy Chest: Clear to auscultation without wheezes rhonchi or crackles Cor: Regular rate and rhythm without a murmur Abdomen: Positive bowel sounds, soft, nontender, nondistended Extremities: No edema, pulses intact Neurologic exam nonfocal Objective Labs 12/21/22 04:05 12/21/22 04:05 Labs: Laboratory Results - last 24 hr 12/20/22 12/21/22 12/21/22 19:00 04:05 04:05 WBC 1.8 L* RBC 3.22 L Hgb 9.3 L Hct 26.9 L MCV 83.5 MCH 28.9 MCHC 34.6 RDW 15.3 H Plt Count 27 L* Neut % (Auto) Not Reportable Lymph % (Auto) Not Reportable [place] % (Auto) Not Reportable Eos % (Auto) Not Reportable Baso % (Auto) Not Reportable Lymph # (Auto) Not Reportable [place] # (Auto) Not Reportable Baso # (Auto) Not Reportable Total Counted 50 Seg Neutrophils % 40.0 Band Neutrophils % 12.0 H Lymphocytes % (Manual) 38.0 Monocytes % (Manual) 10.0 Neutrophils # (Manual) 936 L Platelet Estimate Decreased on smear RBC Morphology See below Anisocytosis 1+ H Sodium 130 L 136 L Potassium 3.8 3.4 Chloride 97 L 103 Carbon Dioxide 26 27 BUN 36 H 29 H Creatinine 1.61 H 1.40 H Estimated GFR 44 L 52 L BUN/Creatinine Ratio 22.4 H 20.7 Glucose 169 H 67 L D Calcium 8.5 8.1 L Magnesium 1.5 L 1.5 L Total Bilirubin 0.4 AST 173 H ALT 62 H Alkaline Phosphatase 40 Total Creatine Kinase 9799 H 7915 H Troponin I 0.140 H* Total Protein 5.6 L Albumin 2.7 L Globulin 2.9 Albumin/Globulin Ratio 0.9 L [facility] Medical History Hyperlipidemia Hypertension Cataracts, bilateral Diabetes Anemia, chronic renal failure Social History household members: none Smoking Status: Never smoker alcohol intake: former eating out: 4 or more times/week Type(s) of exercise: none Assessment & Plan Assessment & Plan narrative: Hospital day 3. For this patient with COVID-19 illness causing weakness Assessment 1. COVID-19 illness with profound weakness Plan: Continue hospitalization but patient does not need to be E ICU and can be acute care status. Continue with physical therapy. Continue with IV fluids and supportive care. Assessment 2. Rhabdomyolysis with marked elevation of CK improving Plan: Continue with gentle hydration. We will continue to monitor closely and trend downward. Suspect related COVID-19 illness, weakness, being down, dehydration, acute on chronic renal failure. Will continue the same. Assessment 3. Troponinemia suspect related to acute on chronic kidney disease possible ischemia without myocardial damage. Echo was entirely normal. Reviewed troponin levels and trended down. Plan: Will continue to monitor. Consider further risk stratification as outpatient Assessment 4. History of thrombocytopenia and monoclonal gammopathy of undetermined significance Plan: Continue to monitor worsened thrombocytopenia due to acute illness. No evidence of bleeding. Will transfuse if there is evidence bleeding. Will continue to monitor. Assessment 5. Anemia suspect related to 4. As well as fluid status and acute illness. Plan: Will continue to monitor and workup further if continues to trend down. Assessment 6. Type 2 diabetes with blood sugars low in the morning Plan: Will decrease Lantus to 10 units at bedtime. Patient is on Trulicity as an outpatient. Will consider starting metformin tomorrow pending how labs are. Assessment 7. Acute on chronic kidney disease improving. Really probably back to normal Plan: Will continue to monitor. Continue with gentle hydration. Hold metformin for now. Assessment 8. DVT prophylaxis Lovenox contraindicated due to severe profound thrombocytopenia Assessment 9. Relative hypotension suspect multifactorial Plan: Continue to monitor. Continue with fall precautions. Continue with gentle IV hydration. 57 minutes was spent with patient reviewing chart, discussing with physician and nursing and meeting with patient and formulating a plan and documentation. Quality VTE Deep Vein Thrombosis/Pulmonary Embolism Present on Admission: No
[2022-12-21] MEDS: INSULIN LISPRO 100 UNIT/ML 3ML VIAL SUBCUT (16:47)
[2022-12-21] MEDS: INSULIN GLARGINE 100 UNIT/ML 3ML PEN 10 UNIT SUBCUT (20:31)
[2022-12-22] VITALS (53 sets, daily range): BP systolic 110–127; BP diastolic 55–64; PULSE 62–84; RESP 8–31; TEMP 36.6–37.1; O2SAT 95–99
[2022-12-22 04:49] LABS: Creatine Kinase 4274 U/L (55-170)
[2022-12-22 04:50] LABS: Magnesium 1.5 mg/dL (1.6-2.3)
[2022-12-22 04:51] LABS: Alanine Aminotransferase 66 IU/L (<50); Albumin 3.1 g/dL (3.5-5.0); Alkaline Phosphatase 48 U/L (38-126); Aspartate Aminotransferase 147 IU/L (17-59); BUN Creatinine Ratio 18.3 (6-22); Bilirubin Total 0.3 mg/dL (0.2-1.3); Blood Urea Nitrogen 22 mg/dL (9-20); Calcium 8.9 mg/dL (8.4-10.2); Carbon Dioxide 28 mmol/L (22-32); Chloride 106 mmol/L (98-107); Estimated Glomerular Filt Rate > 60 mL/min (>60); Globulin 3.1 g/dL (1.7-4.1); Glucose 63 mg/dL (80-110); HEMOLYSIS < 15 (0-50); Potassium 3.9 mmol/L (3.4-5.1); Sodium 138 mmol/L (137-145); Total Protein 6.2 g/dL (6.3-8.2)
[2022-12-22 05:01] LABS: Hematocrit 29.7 % (41-53); Hemoglobin 10.1 g/dL (13.5-17.5); Mean Corpuscular HGB Conc 33.9 % (30-36); Mean Corpuscular Hemoglobin 28.1 PG (26-34); Red Blood Cell Count 3.58 X10^6/uL (4.5-5.9); Red Cell Distribution Width 15.7 % (11.6-14.8)
[2022-12-22] MEDS: PANTOPRAZOLE DR 20 MG TABLET PO (05:07)
[2022-12-22 05:14] LABS: White Blood Cell Count 1.6 X10^3/uL (4.5-11.0)
[2022-12-22 05:15] LABS: Add Manual Diff / Slide Review YES; Platelet Count 22 X10^3/uL (150-400)
[2022-12-22] MEDS: LACTATED RINGERS 1,000 ML 100 ML IV ×2 (05:54→16:06)
[2022-12-22 06:12] LABS: Neutrophils Absolute Manual 576 /uL (3000-5900); Total Cells Counted 100
[2022-12-22 06:13] LABS: Anisocytosis 1+; Platelet Estimate Decreased on smear
--- NOTE | 2022-12-22 08:37 | PM.PN.1 ---
Subjective Subjective Date Patient Seen: 12/22/22 Time Patient Seen: 08:37 Interval history: Patient had unremarkable night. He is putting out a lot of urine. Still has Harrison catheter in place. He is still very weak and is working with physical therapy. He does have some sleep apnea and received 2 L oxygen at night last night but now is stable on room air. He complains of generally being weak but denies any headache or chest pain or myalgias. Patient seen twice today. He had a really good day worked with physical therapy and occupational therapy in his doing much better. He is feeling stronger and eating a little bit more. The Harrison catheter was removed and he is urinated and continues to put out good output. Exam Vital Signs (past 8 hours): - 12/22/22 03:43 12/22/22 03:43 12/22/22 04:22 Temperature 98.6 F Pulse Rate 73 68 Respiratory Rate 18 12 Blood Pressure 127/64 Pulse Oximetry 99 12/22/22 04:30 12/22/22 04:45 12/22/22 05:00 Temperature Pulse Rate 67 67 65 Respiratory Rate 12 15 11 L Blood Pressure Pulse Oximetry 12/22/22 05:15 12/22/22 05:30 12/22/22 05:45 Temperature Pulse Rate 76 71 70 Respiratory Rate 24 14 17 Blood Pressure Pulse Oximetry 12/22/22 06:00 12/22/22 06:15 12/22/22 06:30 Temperature Pulse Rate 77 66 69 Respiratory Rate 17 9 L 21 Blood Pressure Pulse Oximetry 12/22/22 06:45 12/22/22 07:00 12/22/22 07:15 Temperature Pulse Rate 69 69 69 Respiratory Rate 15 8 L 11 L Blood Pressure Pulse Oximetry 12/22/22 07:30 12/22/22 07:45 12/22/22 08:00 Temperature Pulse Rate 66 77 74 Respiratory Rate 13 18 19 Blood Pressure Pulse Oximetry 12/22/22 08:01 12/22/22 08:01 Temperature 98.4 F Pulse Rate 73 Respiratory Rate 20 Blood Pressure 119/62 Pulse Oximetry 98 Oxygen Delivery Method Room Air Oxygen Flow Rate 2 Narrative Exam Narrative: Patient is alert and oriented x3. His bruising right periorbital left frontal is improving and the abrasion is healing on his head. He appears to be more energetic and more back to baseline this evening. Blood pressure is coming up from 100 systolic now in the 120s. Remainder of vital signs are stable and he is afebrile HEENT is otherwise unchanged mucous membranes moist and pink Neck: Supple Chest: Clear to auscultation without wheezes rhonchi or crackles Cor: Regular rate and rhythm without murmur Abdomen: Positive bowel sounds, soft, nontender Extremities no edema, pulses intact Neurologic exam nonfocal Objective Labs 12/22/22 04:03 12/22/22 04:03 Labs: Laboratory Results - last 24 hr 12/22/22 04:03 WBC 1.6 L* RBC 3.58 L Hgb 10.1 L Hct 29.7 L MCV 83.0 MCH 28.1 MCHC 33.9 RDW 15.7 H Plt Count 22 L* Neut % (Auto) Not Reportable Lymph % (Auto) Not Reportable [place] % (Auto) Not Reportable Eos % (Auto) Not Reportable Baso % (Auto) Not Reportable Lymph # (Auto) Not Reportable [place] # (Auto) Not Reportable Baso # (Auto) Not Reportable Total Counted 100 Seg Neutrophils % 32.0 L Band Neutrophils % 4.0 Lymphocytes % (Manual) 36.0 Monocytes % (Manual) 24.0 H Myelocytes % 4.0 H Neutrophils # (Manual) 576 L Platelet Estimate Decreased on smear RBC Morphology See below Anisocytosis 1+ H Sodium 138 Potassium 3.9 Chloride 106 Carbon Dioxide 28 BUN 22 H Creatinine 1.20 Estimated GFR > 60 BUN/Creatinine Ratio 18.3 Glucose 63 L Calcium 8.9 Magnesium 1.5 L Total Bilirubin 0.3 AST 147 H ALT 66 H Alkaline Phosphatase 48 Total Creatine Kinase 4274 H D Total Protein 6.2 L Albumin 3.1 L Globulin 3.1 Albumin/Globulin Ratio 1.0 [facility] Medical History Hyperlipidemia Hypertension Cataracts, bilateral Diabetes Anemia, chronic renal failure Social History household members: none Smoking Status: Never smoker alcohol intake: former eating out: 4 or more times/week Type(s) of exercise: none Assessment & Plan Assessment & Plan narrative: Assessment & Plan narrative: Hospital day 4. For this patient with COVID-19 illness causing weakness, dehydration and rhabdomyolysis from prolonged time on ground Assessment 1. COVID-19 illness with profound weakness Plan: Continue hospitalization. Continue with physical therapy. Continue with IV fluids and supportive care. If patient continues to show improvement will send home with home health tomorrow Assessment 2. Rhabdomyolysis with marked elevation of CK improving. Continues to improve. Will continue with same IV fluid hydration 100 cc an hour. Patient is having excellent output. Will recheck labs in the morning. Will remove Harrison. Plan: Continue with gentle hydration. We will continue to monitor closely and trend downward. Suspect related COVID-19 illness, weakness, being down, dehydration, acute on chronic renal failure. Will continue the same. Assessment 3. Troponinemia suspect related to acute on chronic kidney disease possible ischemia without myocardial damage. Echo was entirely normal. Reviewed troponin levels and trended down. Plan: Will continue to monitor. Consider further risk stratification as outpatient Assessment 4. History of thrombocytopenia and monoclonal gammopathy of undetermined significance. White blood cell count is worse so air platelets but patient is not having any obvious bleeding. Will discuss with Oncology Plan: Continue to monitor worsened thrombocytopenia due to acute illness. No evidence of bleeding. Will transfuse if there is evidence bleeding. Will continue to monitor. Assessment 5. Anemia suspect related to 4. As well as fluid status and acute illness.. Improved today. Plan: Will continue to monitor and workup further if continues to trend down. Assessment 6. Type 2 diabetes with blood sugars low in the morning. Decreased Lantus from 20-10 yesterday and still with low blood sugar this morning Plan: Will decrease Lantus to 5 units in a.m. will start metformin tonight. Patient is on Trulicity as an outpatient. Will recheck renal function tomorrow Assessment 7. Acute on chronic kidney disease improving. Really probably back to normal Plan: Will continue to monitor. Continue with gentle hydration. Hold metformin for now. Assessment 8. DVT prophylaxis Lovenox contraindicated due to severe profound thrombocytopenia Assessment 9. Relative hypotension suspect multifactorial Plan: Continue to monitor. Continue with fall precautions. Continue with gentle IV hydration. Assessment 10. Hypomagnesemia Plan: Will replace and recheck in a.m.. 57 minutes was spent with patient reviewing chart, discussing with physician and nursing and meeting with patient and formulating a plan and documentation. Quality VTE Deep Vein Thrombosis/Pulmonary Embolism Present on Admission: No
[2022-12-22] MEDS: MAGNESIUM SULFATE 2 GM/50 ML PIGGYBACK IV (08:49)
[2022-12-22] MEDS: ATORVASTATIN 20 MG TABLET 10 MG PO (08:49)
[2022-12-22] MEDS: ASPIRIN EC 325 MG TABLET PO (08:49)
[2022-12-22] MEDS: METOPROLOL ER 25 MG TABLET PO (08:50)
--- NOTE | 2022-12-22 09:08 | PT.IPTN ---
Current Diagnoses Thrombocytopenia, unspecified (12/19/22) Non-ST elevation (NSTEMI) myocardial infarction (12/19/22) Weakness (12/19/22) Traumatic ischemia of muscle, initial encounter (12/19/22) COVID-19 (12/19/22) Physical Therapy Treatment Note M2 PT-IP Current Condition Start: 12/21/22 12:07 Freq: NEEDED Status: Active Protocol: Document 12/21/22 12:55 AW (Rec: 12/21/22 13:13 AW [id number]) Physical Therapy Current Condition Current Condition Evaluation Date 12/21/22 Treatment Diagnosis fall, rhabdomyolysis, COVID, impaired mobility Onset Date 12/18/22 M3 PT-IP Subjective Start: 12/21/22 12:07 Freq: NEEDED Status: Active Protocol: Document 12/22/22 09:46 TS (Rec: 12/22/22 10:01 TS [id number]) Subjective Physical Therapy Visit Type Type Treatment Note Visit Start Time 09:08 Visit Stop Time 09:46 Total Visit Minutes 28 Number of HEAD OF BIOLOGY Visits 1 Physical Therapy Visit Comments Patient Comments Pt found resting in bed, agreeable to PT. pt reports having hospital bed at home and a lift recliner he's been sleeping in lately. Patient Goals Return home with support M4 PT-IP Mobility and Gait Start: 12/21/22 12:07 Freq: NEEDED Status: Active Protocol: Document 12/22/22 09:46 TS (Rec: 12/22/22 10:01 TS [id number]) PT-Bed Mobility Assessment Supine to Sit Supine to Sit Standby Assistance Scooting Scooting to Edge of Bed Standby Assistance PT-Transfer Assessment Sit to and From Stand Sit to and from Stand Standby Assistance,Use of Upper Extremities Equipment Transfer Assistive Device Gait Belt,Front Wheeled Walker Comments Mobility Comments Supine to sit SBA with use of handrails to upright trunk. He performed sit to stand x2 SBA with use of FWW, has some retrolean with weight back on heels. He ambulated ~60' SBA/ CGA in room with slow step thru gait and use of FWW. He performed steps x7 SBA/CGA on step stool with use of RUE counter support and LUE with SPC, cane was adjusted for proper height. Pt was left in chair with call light nearby, all needs met, RN notified. Gait Assessment Gait Gait Assistance Required: Standby Assistance,Contact Guard Assist Distance (Feet) 60 Assistive Devices Assistive Device Gait Belt,Straight Cane,Front Wheeled Walker Gait Deviations General Gait Pattern Antalgic,Decreased Stride Length,Decreased Feet Clearance Factors Limiting Gait Function Factors Limiting Gait Function Decreased Activity Tolerance, Poor Balance Comments Gait Comments See mobility comments. Stair Climbing Assessment Evaluation Level of Assist On Stairs Standby Assistance,Contact Guard Assistance Devices Stair Climbing Assistive Devices Straight Cane,Right Railing Technique/Endurance Stair Climbing Direction Ascend and Descend Stair Climbing Technique Step to Step Number of Steps Climbed 7 Comments Stair Climbing Comments See mobility comments. PT-Balance Assessment Sitting Balance and Reactions Static Sitting Balance Ability Normal Dynamic Sitting Balance Ability Good Standing Balance and Reactions Static Standing Balance Ability Good Dynamic Standing Balance Ability Good Device Used FWW M5 PT-IP Objective Assessments Start: 12/21/22 12:07 Freq: NEEDED Status: Active Protocol: Document 12/21/22 12:55 AW (Rec: 12/21/22 13:13 AW [id number]) Orientation Orientation/Cognition Level of Alertness Alert Orientation Name,Day of Week,Place, Situation Language Function Ability No Deficits Noted Safety Awareness Understands Safety Issues Gross Range of Motion Upper Extremity ROM Assessment Within Functional Limits Lower Extremity ROM Assessment Within Functional Limits Strength Upper Extremity Strength Assessment Within Functional Limits Lower Extremity Strength Assessment Within Functional Limits Comments Strength Comments BLE strength grossly 5/5. Sensation Assessment Sensation Gross Sensation WNL M7 PT-IP Assessment and Plan Start: 12/21/22 12:07 Freq: NEEDED Status: Active Protocol: Document 12/22/22 09:46 TS (Rec: 12/22/22 10:01 TS [id number]) PT Summary Assessment and Plan Potential Rehabilitation Potential Good Summary Impairments Balance,Bed Mobility,Transfers ,Gait,Activity Tolerance Progress Towards Goals Progressing Toward Goals Assessment Summary Juvenal is making good progress with his mobility. He is SBA for all bed mobility with use of handrails. He is SBA for sit to stands with use of FWW, has a slight retrolean in when coming into standing with weight back on heels. He progressed his gait to ~60'SBA/CGA with FWW, had no buckling or LOB. He performed steps x7 this session with SPC and R counter support, education was provided to pt on proper height of SPC and step sequencing. PT continues to recommend home with assist and HHPT. Recommended to pt he get a FWW, states he will pick one up from a pharmacy store. Goals Bed Mobility Goal Independent Transfer Goal Independent,Front Wheeled Walker Gait Goal Independent,Front Wheel Walker Gait Distance 100 Other Goals - up/down 7 steps with single rail and SBA - progress gait to mod I with SPC Days to Meet Goals 6 Frequency of Treatment Frequency Of Treatment Once a Day Treatment Plan Physical Therapy Treatment Plan Bed Mobility Training,Transfer Training,Gait Training, Therapeutic Exercise,Balance Retraining,Discharge Planning, Hot or Cold Pack,Neuromuscular Re-ed Other Recommendations and Next Treatment assess stairs Focus Precautions Other Precautions COVID + Recommendations To Nursing Amount of Assist Needed Standby Assistance Discharge Recommendations PT Discharge Recommendations Home with Assistance,Home Health Equipment Needed for Home Before may need FWW Discharge Transportation Needs at Discharge Private Vehicle
[2022-12-22 09:27] LABS: Magnesium 1.5 mg/dL (1.6-2.3)
--- NOTE | 2022-12-22 12:57 | OT.IP.EVAL ---
Current Diagnoses Thrombocytopenia, unspecified (12/19/22) Non-ST elevation (NSTEMI) myocardial infarction (12/19/22) Weakness (12/19/22) Traumatic ischemia of muscle, initial encounter (12/19/22) COVID-19 (12/19/22) Past Medical History (Last Reviewed 12/19/22 @ 14:40 by Duran Liang MD) Anemia, chronic renal failure Cataracts, bilateral Diabetes Hyperlipidemia Hypertension Occupational Therapy Inpatient Evaluation/Re-Eval M1 PT/OT-IP Prior Functional Status Start: 12/22/22 13:00 Freq: NEEDED Status: Active Protocol: Document 12/22/22 12:25 [facility] (Rec: 12/22/22 13:22 [facility] [id number]) Medical Review Prior Functional Status Medical History Reviewed Yes Communication WNL Mobility and Gait Modified independent with use of cane secondary to knee pain . Frequently ambulates without cane. Activities of Daily Living and IADL's Independent. 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 Manages all finances and medications without assist . Social History Household Members none Living Arrangements House Number of Floors (Floors) Two Floors Number of Stairs To Enter/Railing? Home is split level with 2 LEIF . 7 steps with bilateral rails up from entry landing to living room and kitchen. From landing, down 7 steps with unilateral rail to bedroom and bathroom. 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 Has friends and neighbors who are working together to support the pt at discharge - including meals and other assist as needed. Pt states able to get a shower chair. M2 OT-IP Current Condition Start: 12/22/22 13:00 Freq: Status: Active Protocol: Document 12/22/22 12:25 [facility] (Rec: 12/22/22 13:22 [facility] [id number]) Occupational Therapy Current Condition Current Condition Evaluation Date 12/22/22 Treatment Diagnosis Covid +, Rhabdomyolysis Diagnosis Onset Date 12/19/22 M3 OT- IP Subjective and Pain Start: 12/22/22 13:00 Freq: Status: Active Protocol: Document 12/22/22 12:25 [facility] (Rec: 12/22/22 13:22 [facility] [id number]) OT- Subjective Occupational Therapy Visit Type Type Initial Evaluation Visit Start Time 12:25 Visit Stop Time 12:57 Total Visit Minutes 32 Occupational Therapy Visit Comments Patient Comments Pt agreed to get up to the sink for oral care needs. Patient/Caregiver Goals TO go home. OT Pain Assessment Pain When Pain Assessed At Rest Pain Present Pain Present Denied Pain M4 OT- IP ADL's Start: 12/22/22 13:00 Freq: Status: Active Protocol: Document 12/22/22 12:25 [facility] (Rec: 12/22/22 13:22 [facility] [id number]) OT JOC-Rnra-Zpinfyf General Evaluation Self-Feeding Ability Independent OT ADL-Grooming General Evaluation Grooming Ability Independent Areas Needing Assistance Retrieving/Set-up of Grooming Items OT ADL-Oral Care General Eval Oral Care Ability Independent Areas of Assistance Retrieving/Set-Up of Items OT ADL-Dressing General Eval Lower Body Dressing Ability Maximum Assistance Comments OT Dressing Comments Pt states does not bend over to do his socks and slips them on while seated. Pt states has been considering getting sock aid for some time now. OT ADL-Toileting General Evaluation Toileting Ability Total Assistance Areas Needing Assistance Empty Catheter or Colostomy Comments OT Toileting Comments Mcguire in place. OT ADL-Bathing Comments OT Bathing Comments Pt agreed to try tomorrow especially if his mcguire is out . M5 OT- IP IADL's Start: 12/22/22 13:00 Freq: Status: Active Protocol: Document 12/22/22 12:25 [facility] (Rec: 12/22/22 13:22 [facility] [id number]) OT-Instrumental Activities of Daily Living Home Safety Awareness Awareness of Need for Assistance at Home Good Awareness Ability to Problem Solve Emergency Able to Problem Solve Situations Home Safety Comments Pt states has friends and neighbors that will assist him . Medication Management Medication Management Comments Pt is a little forgetful. Money Management Money Management Comments Pt is a little forgetful. Meal Preparation Meal Preparation Comments Pt will benefit from assist. Lodging Facilities Attendant Lodging Facilities Attendant Comments Pt will benefit from assist. M6 OT- IP Functional Cognition Start: 12/22/22 13:00 Freq: Status: Active Protocol: Document 12/22/22 12:25 [facility] (Rec: 12/22/22 13:22 [facility] [id number]) Cognitive Factors Limiting Selfcare Function Cognitive Ability Level of Alertness Alert Patient Orientation Name,Age,Birthday,Month,Date, Year,Day of Week,Place, Situation Attention Span Ability Capable of Focused Attention, Capable of Sustained Attention Ability to Follow Commands Able to Follow One Step Commands Safety Awareness No Deficits Noted Cognitive Comments Cognitive Assessment Comments Pt not wanting to do cognitive assessment at this time and avoiding to answer questions of counting back by 7's form 100 or spell the word world backwards. Pt states has been able to use his phone and pay his bills appropriately while here in the hospital. Pt will benefit from SLUMS as pt did hit his head from a fall a few days ago . OT- Vision and Hearing OT- Hearing Assessment OT- Hearing Assessment WFL OT- Vision Assessment Visual Acuity Glasses For Reading Visual Attentiveness WFL Occular Pursuits WFL M7 OT- IP Mobility and Balance Start: 12/22/22 13:00 Freq: Status: Active Protocol: Document 12/22/22 12:25 [facility] (Rec: 12/22/22 13:22 [facility] [id number]) OT-Transfer Assessment Sit to and From Stand Sit to and from Stand Standby Assistance,Contact Guard Assistance Transfers Transfer Ability Standby Assistance Technique Transfer Destination Chair Transfer Technique Stand Step Pivot Devices Transfer Assistive Devices Gait Belt,Front Wheeled Walker Comments Mobility Comments Pt increased time to come to stand with CGA to SBA. Pt uses his lift chair at home to assist to stand at times. SBA with FWW and heavy use of arms on the walker at this time as pt is somewhat unsteady. OT- Balance Assessment Sitting Balance and Reactions Static Sitting Balance Ability Good Dynamic Sitting Balance Ability Fair Standing Balance and Reactions Static Standing Balance Ability Good Dynamic Standing Balance Ability Fair M8 OT- IP Objective Assessments Start: 12/22/22 13:00 Freq: Status: Active Protocol: Document 12/22/22 12:25 [facility] (Rec: 12/22/22 13:22 [facility] [id number]) OT Gross Range of Motion Upper Extremity Range of Motion ROM Impairments decreased at end ROM OT Strength Upper Extremity Strength Assessment Within Functional Limits OT- Coordination Assessment Upper Extremity Finger to Nose Test Within Functional Limits OT-Muscle Tone Assessment Muscle Tone WNL Yes M9 OT- IP Assessment and Plan Start: 12/22/22 13:00 Freq: Status: Active Protocol: Document 12/22/22 12:25 [facility] (Rec: 12/22/22 13:22 [facility] [id number]) OT Summary Assessment and Plan Potential Rehabilitation Potential Good Analytic Complexity at Evaluation Moderate Summary OT Impairments Pain,Range of Motion,Balance, Functional Cognition, Functional Mobility,Dressing, Toileting,Bathing,Toilet Transfers,Shower Transfers, Activity Tolerance Progress Towards Goals Slow Progress due to Medical Issues,Slow Progress due to Activity Tolerance Assessment Summary Pt MOD complexity and main barriers are decreased activity tolerance, dynamic balance, and at times forgetful. Pt will benefit from SLUMS tomorrow and showering. Pt looking to go home with assist and home health. Goals Dressing Goal Independent,[place],Sock Aid Toileting Goal Independent Bathing Goal Independent Toilet Transfer Goal Independent Shower Transfer Goal Independent Days to Meet Goals 10 Frequency of Treatment Frequency Of Treatment Once a Day Treatment Plan OT Treatment Plan ADL Training,Functional Cognition Training,Functional Mobility,Patient/Family Education,Discharge Planning Other Treatment Recommendations and Next SLUMS/shower Treatment Focus Discharge Recommendations OT Discharge Recommendations Home with Assistance,Home Health Home Equipment Needs FWW, shower chair Transportation Needs at Discharge Private Vehicle
--- NOTE | 2022-12-22 13:56 | CM.DPC ---
DCP Cont. Reviewed chart for status updates. This is actually an L&I claim, admissions counselors are updating the chart; pt's first fall was on the job, then he later fell at home prior to EMS transfer to [facility]. . [facility] is his preference. Sent clinicals and referral for [facility] to review. F/F completed, w/spreadsheet. Monitor for acceptance.
[2022-12-22 15:36] LABS: Albumin 3.3 g/dL (2.9-4.4); Alpha-1-Globulin 0.2 g/dL (0.0-0.4); Alpha-2-Globulin 0.5 g/dL (0.4-1.0); Gamma Globulin 1.1 g/dL (0.4-1.8); Globulin Total 2.6 g/dL (2.2-3.9); Protein, Total 5.9 g/dL (6.0-8.5)
[2022-12-22] MEDS: METFORMIN HCL 500 MG TABLET PO (20:56)
[2022-12-22 22:14] LABS: Free Kappa Lt Chains, Serum 77.6 mg/L (3.3-19.4)
[2022-12-23] MEDS: LACTATED RINGERS 1,000 ML 100 ML IV (01:35)
[2022-12-23 02:42] VITALS: BP 130/53; PULSE 78; RESP 17; TEMP 36.6; O2SAT 97
[2022-12-23 04:58] LABS: Hemoglobin 10.4 g/dL (13.5-17.5); Mean Corpuscular HGB Conc 33.4 % (30-36); Mean Corpuscular Hemoglobin 27.7 PG (26-34); Red Blood Cell Count 3.74 X10^6/uL (4.5-5.9); Red Cell Distribution Width 15.5 % (11.6-14.8)
[2022-12-23 06:09] LABS: Add Manual Diff / Slide Review YES; Platelet Count 28 X10^3/uL (150-400); White Blood Cell Count 1.5 X10^3/uL (4.5-11.0)
[2022-12-23] MEDS: PANTOPRAZOLE DR 20 MG TABLET PO (06:18)
[2022-12-23 06:43] LABS: BUN Creatinine Ratio 15.9 (6-22); Blood Urea Nitrogen 17 mg/dL (9-20); Calcium 9.4 mg/dL (8.4-10.2); Carbon Dioxide 29 mmol/L (22-32); Chloride 106 mmol/L (98-107); Creatine Kinase 1468 U/L (55-170); Estimated Glomerular Filt Rate > 60 mL/min (>60); Glucose 77 mg/dL (80-110); HEMOLYSIS 25 (0-50); Magnesium 1.8 mg/dL (1.6-2.3); Potassium 3.9 mmol/L (3.4-5.1); Sodium 139 mmol/L (137-145)
[2022-12-23 07:00] VITALS: BP 162/74; PULSE 70; RESP 21; O2SAT 100
[2022-12-23 08:09] LABS: Neutrophils Absolute Manual 420 /uL (3000-5900); Total Cells Counted 50
[2022-12-23 08:11] LABS: RBC Morphology Normal Morphology
[2022-12-23] MEDS: METOPROLOL ER 25 MG TABLET PO (08:48)
[2022-12-23] MEDS: ATORVASTATIN 20 MG TABLET 10 MG PO (08:48)
[2022-12-23] MEDS: ASPIRIN EC 325 MG TABLET PO (08:48)
[2022-12-23] MEDS: INSULIN GLARGINE 100 UNIT/ML 3ML PEN SUBCUT (08:48)
--- NOTE | 2022-12-23 09:28 | P.DS_ITS ---
History of Present Illness History of Present Illness Date Patient Seen: 12/23/22 Time Patient Seen: 09:28 Chief complaint: fell T-2 and today Narrative: Patient had a difficult night last night because Harrison catheter was removed and he was having to urinate every 2 hours. He attributes this to the IV fluids that are still going. He is feeling stronger. He is looking forward to going home. He denies any difficulty breathing or chest pain or abdominal pain or nausea or vomiting or diarrhea. He denies any pain with urination. He feels he is stronger and able to ambulate better. He is having a little bit of postnasal drainage. He denies any muscle pain 12 point review of systems otherwise negative Discharge Providers Provider Date of admission: 12/19/22 13:05 Discharge Date: 12/23/22 Primary care physician: Bree Burrell MD Consults: 12/19/22 20:13 Consult to Tele-cashier clerk Routine Comment: Consulting Provider: [facility] [employer] Reason for consultation: Hematology Nurse services 12/21/22 10:41 Consult to Occupational Therapy Evaluate & Treat Comment: Physician Instructions: Evaluate and treat Consult to Physical Therapy Evaluate & Treat Comment: Physician Instructions: Evaluate and Treat Discharge provider: Bree Burrell MD Summary Hospital Course Discharge Diagnosis: 1. COVID-19 illness 2. Rhabdomyolysis from being down 3. Pancytopenia worsened due to COVID-19 illness with underlying MGUS 4. Elevated troponin without evidence of cardiac injury or ischemia 5. Acute on chronic kidney disease improved 6. Type 2 diabetes, stable 7. Hypotension, improved 8. 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 He laid there for about 2 hours. Went to the ER and then ended up leaving without being seen. He went home and then had another fall within 24 hours where he was down for 4 hours. He was brought to the ER and found to have COVID-19 illness thought to be the etiology of his weakness and was found to have rhabdomyolysis with dehydration and acute on chronic kidney disease. He was admitted to the hospital and treated with IV fluids and supportive care. He never had any significant respiratory symptoms from the COVID-19 illness. His troponin was elevated an echo was done that showed no wall motion abnormality and normal ejection fraction. Troponins trended down and were thought to be related to cardiac demand and not acute myocardial infarction or non ST-elevation myocardial infarction or acute coronary syndrome. Patient never had any symptoms. Patient has underlying history of MGUS for which he sees Dr. Allen previously. His hemoglobin, platelets and white blood cell count did decrease from his baseline and remained decreased. Patient had Harrison catheter and this was removed prior to discharge approximately 24 hours and he was urinating well. Patient worked with physical therapy and occupational therapy and improved on a daily basis in terms of his strength. Blood sugars were controlled with Lantus which was quite high initially and then gradually decreased to 5 mg prior to discharge. Metformin was started day prior to discharge. He is on this as an outpatient as well as Trulicity in his next dose of Trulicity is due on Wednesday. Patient was discharged home in improved condition with home health health with follow-up with me next week. Will do blood work on Wednesday which will be a CBC, CMP, CPK. He will have it done at my office so orders are there. Status at Discharge Cognitive/behavioral status at discharge: oriented Functional status at discharge: uses cane/walker Overall status at discharge: patient is progressing back to baseline Exam Vital Signs (past 8 hours): - 12/23/22 02:42 12/23/22 07:00 12/23/22 08:00 Temperature 97.9 F Pulse Rate 78 70 Respiratory Rate 17 21 Blood Pressure 130/53 L 162/74 H Pulse Oximetry 97 100 Oxygen Delivery Method Room Air Oxygen Flow Rate 0 0 Oxygen Delivery Method Room Air Oxygen Flow Rate 0 Narrative Exam Narrative: Bruising continues to improve on his forehead. HEENT unremarkable some postnasal drainage and nasal congestion Neck: Supple Chest: Clear to auscultation Cor: Regular rate and rhythm without a murmur Abdomen: Positive bowel sounds, soft Extremities no edema Neurologic exam nonfocal Objective Labs 12/23/22 04:07 12/23/22 04:07 Labs: Laboratory Results - last 24 hr 12/19/22 12/22/22 12/23/22 19:15 04:03 04:07 WBC 1.5 L* RBC 3.74 L Hgb 10.4 L Hct 31.0 L MCV 83.0 MCH 27.7 MCHC 33.4 RDW 15.5 H Plt Count 28 L* Neut % (Auto) Not Reportable Lymph % (Auto) Not Reportable [place] % (Auto) Not Reportable Eos % (Auto) Not Reportable Baso % (Auto) Not Reportable Lymph # (Auto) Not Reportable [place] # (Auto) Not Reportable Baso # (Auto) Not Reportable Total Counted 50 Seg Neutrophils % 28.0 L Lymphocytes % (Manual) 54.0 H Monocytes % (Manual) 18.0 H Neutrophils # (Manual) 420 L RBC Morphology Normal morphology Sodium 139 Potassium 3.9 Chloride 106 Carbon Dioxide 29 BUN 17 Creatinine 1.07 Estimated GFR > 60 BUN/Creatinine Ratio 15.9 Glucose 77 L Calcium 9.4 Magnesium 1.5 L 1.8 Total Creatine Kinase 1468 H D Total Protein (PEP) 5.9 L Albumin (PEP) 3.3 Albumin/Globulin (PEP) 1.3 Hixrx-7-Qtmelbhtz 0.2 Twcow-7-Jhjtrhvie 0.5 Beta Globulins 0.7 Gamma Globulins 1.1 Gamma Glob/Tot Protein 2.6 M-Ez 0.3 H Free [place] Light Chains 77.6 H Free Lambda Light Chain 34.0 H Free [place]/Lambda Ratio 2.28 H Ref Lab Notation Comment [facility] Medical History Hyperlipidemia Hypertension Cataracts, bilateral Diabetes Anemia, chronic renal failure Social History household members: none Smoking Status: Never smoker alcohol intake: former eating out: 4 or more times/week Type(s) of exercise: none Discharge Assessment & Plan Assessment and Plan Assessment: 1. COVID-19 illness 2. Rhabdomyolysis from being down 3. Pancytopenia worsened due to COVID-19 illness with underlying MGUS 4. Elevated troponin without evidence of cardiac injury or ischemia 5. Acute on chronic kidney disease improved 6. Type 2 diabetes, stable 7. Hypotension, improved 8. Generalized weakness secondary to COVID-19 Plan of Treatment: Discharged to home with home health CBC, CMP and CPK on Wednesday Follow-up with me next Wednesday Phone call in to Dr. Romero to get his opinion about the CBC and appropriateness of discharge. Suspect that worsening pancytopenia is related to acute COVID illness and rhabdomyolysis. Continue with p.o. fluid hydration Continue outpatient medications including metformin 500 mg twice daily, atorvastatin 5 mg daily, eyedrops, vitamin B12, Trulicity once a week next dose Wednesday, omeprazole 50 minutes was spent with patient in discharge including discussing with nursing, social studies department chair, physicians Discharge Plan Discharge Plan Patient Disposition: Home Health Service Discharge orders & Medications Prescriptions: Continued atorvastatin 10 mg Tablet 5 mg PO DAILY omeprazole 20 mg Tablet,Delayed Release (Dr/Ec) 20 mg PO DAILY mecobalamin (vitamin B12) 1,000 mcg Tablet,Chewable 1,000 mcg PO DAILY Qty: 100 3RF metformin 500 mg Tablet 500 mg PO BID Trulicity 1.5 mg/0.5 mL Pen Injector 3 mg SUBCUT QWEEK dorzolamide-timolol 22.3-6.8 mg/mL drops 1 drp EYE-LEFT BID brimonidine 0.15 % drops 1 drp EYE-LEFT BID Follow up/Referrals: Bree Burrell MD [Primary Care Provider] - 12/30/22 3:00 pm (Appt:12/30 @ 3:[address] Burrell ) Diet/Activity/Treatments Diet: Carb-consistent/Diabetic Activity: as tolerated Visit Report/Discharge Packet Stand Alone Forms: Patient Portal/API, Stroke Signs & Symptoms Discharge Data Primary Care Provider: Bree Burrell Quality VTE Deep Vein Thrombosis/Pulmonary Embolism Present on Admission: No
--- NOTE | 2022-12-23 10:28 | CM.DPC ---
DCP Cont. Reviewed chart and team rounds for status updates. Pt to d/c home today w/[facility]. F/F faxed. Pt's friend Shelbie will transport home when ready to d/c. No further needs identified for dcp at this time.
--- NOTE | 2022-12-23 11:37 | PT.IPTN ---
Current Diagnoses Thrombocytopenia, unspecified (12/19/22) Non-ST elevation (NSTEMI) myocardial infarction (12/19/22) Weakness (12/19/22) Traumatic ischemia of muscle, initial encounter (12/19/22) COVID-19 (12/19/22) Physical Therapy Treatment Note M2 PT-IP Current Condition Start: 12/21/22 12:07 Freq: NEEDED Status: Active Protocol: Document 12/21/22 12:55 AW (Rec: 12/21/22 13:13 AW [id number]) Physical Therapy Current Condition Current Condition Evaluation Date 12/21/22 Treatment Diagnosis fall, rhabdomyolysis, COVID, impaired mobility Onset Date 12/18/22 M3 PT-IP Subjective Start: 12/21/22 12:07 Freq: NEEDED Status: Active Protocol: Document 12/23/22 11:58 TS (Rec: 12/23/22 12:13 TS [id number]) Subjective Physical Therapy Visit Type Type Treatment Note Visit Start Time 11:37 Visit Stop Time 11:57 Total Visit Minutes 20 Number of AIR QUALITY TECHNICIAN Visits 2 Physical Therapy Visit Comments Patient Comments Pt found resting in chair, would like to get up to walk. M4 PT-IP Mobility and Gait Start: 12/21/22 12:07 Freq: NEEDED Status: Active Protocol: Document 12/23/22 11:58 TS (Rec: 12/23/22 12:13 TS [id number]) PT-Transfer Assessment Sit to and From Stand Sit to and from Stand Standby Assistance Equipment Transfer Assistive Device Gait Belt,Front Wheeled Walker Comments Mobility Comments Sit to stand from chair SBA with use of FWW and BUE support pushing from arms of chair. He ambulated in room ~ 80'SBA with FWW and a slow step thru gait, he had no buckling or LOB. Pt was left back in chair with all needs met, preparing for d/c. Gait Assessment Gait Gait Assistance Required: Standby Assistance Distance (Feet) 80 Assistive Devices Assistive Device Gait Belt,Straight Cane,Front Wheeled Walker Gait Deviations General Gait Pattern Antalgic,Decreased Stride Length,Decreased Feet Clearance Factors Limiting Gait Function Factors Limiting Gait Function Decreased Activity Tolerance, Decreased Strength,Poor Balance Comments Gait Comments See mobility comments. PT-Balance Assessment Sitting Balance and Reactions Static Sitting Balance Ability Normal Dynamic Sitting Balance Ability Good Standing Balance and Reactions Static Standing Balance Ability Good Dynamic Standing Balance Ability Good Device Used FWW M5 PT-IP Objective Assessments Start: 12/21/22 12:07 Freq: NEEDED Status: Active Protocol: Document 12/21/22 12:55 AW (Rec: 12/21/22 13:13 AW [id number]) Orientation Orientation/Cognition Level of Alertness Alert Orientation Name,Day of Week,Place, Situation Language Function Ability No Deficits Noted Safety Awareness Understands Safety Issues Gross Range of Motion Upper Extremity ROM Assessment Within Functional Limits Lower Extremity ROM Assessment Within Functional Limits Strength Upper Extremity Strength Assessment Within Functional Limits Lower Extremity Strength Assessment Within Functional Limits Comments Strength Comments BLE strength grossly 5/5. Sensation Assessment Sensation Gross Sensation WNL M7 PT-IP Assessment and Plan Start: 12/21/22 12:07 Freq: NEEDED Status: Active Protocol: Document 12/23/22 11:58 TS (Rec: 12/23/22 12:13 TS [id number]) PT Summary Assessment and Plan Potential Rehabilitation Potential Good Summary Impairments Balance,Bed Mobility,Transfers ,Gait,Activity Tolerance Progress Towards Goals Progressing Toward Goals Assessment Summary Juvenal continues to make progress with his mobility. He progressed his gait to ~80' SBA with use of FWW. He continues to ambulate with a slow paced gait, has no buckling or LOB. Pt stated friend will be picking him up a FWW for use at home. PT continues to recommend pt return home with assist and HHPT. Goals Bed Mobility Goal Independent Transfer Goal Independent,Front Wheeled Walker Gait Goal Independent,Front Wheel Walker Gait Distance 100 Other Goals - up/down 7 steps with single rail and SBA - progress gait to mod I with SPC Days to Meet Goals 6 Frequency of Treatment Frequency Of Treatment Once a Day Treatment Plan Physical Therapy Treatment Plan Bed Mobility Training,Transfer Training,Gait Training, Therapeutic Exercise,Balance Retraining,Discharge Planning, Hot or Cold Pack,Neuromuscular Re-ed Other Recommendations and Next Treatment assess stairs Focus Precautions Other Precautions COVID + Recommendations To Nursing Amount of Assist Needed Standby Assistance Discharge Recommendations PT Discharge Recommendations Home with Assistance,Home Health Other Discharge Recommendations Friend is picking him up a FWW . Transportation Needs at Discharge Private Vehicle
== END 2022-12-23 14:40 | disposition home health service (06) | DRG 178 ==
LOC: ED 13:03 → AC 13:06 → ICU 14:45
PROVIDERS: Internal Medicine Critical Care Medicine; Admitting Provider Family Medicine; Emergency Provider Emergency Medicine; PCP Family Medicine; Referring Provider Emergency Medicine; Visit Provider Family Medicine
DX: U07.1 COVID-19 (principal); D61.818 Other pancytopenia; N17.9 Acute kidney failure, unspecified; R79.89 Other specified abnormal findings of blood chemistry; D47.2 Monoclonal gammopathy; D69.6 Thrombocytopenia, unspecified; E78.5 Hyperlipidemia, unspecified; K21.9 Gastro-esophageal reflux disease without esophagitis; T79.6XXA Traumatic ischemia of muscle, initial encounter; D63.8 Anemia in other chronic diseases classified elsewhere; E83.42 Hypomagnesemia; I12.9 Hypertensive chronic kidney disease with stage 1 through stage 4 chronic kidney disease, or unspecified chronic kidney disease; E11.22 Type 2 diabetes mellitus with diabetic chronic kidney disease; N18.9 Chronic kidney disease, unspecified; I95.9 Hypotension, unspecified; W18.30XA Fall on same level, unspecified, initial encounter; Z79.85 Long-term (current) use of injectable non-insulin antidiabetic drugs; Z79.84 Long term (current) use of oral hypoglycemic drugs
CPT/HCPCS: 36415; 70450; 71045; 72125; 80048; 80053; 81001; 82550; 82607; 82962; 83605; 83690; 83735; 83880; 83883; 84145; 84155; 84165; 84443; 84484; 85007; 85025; 85027; 85610; 85730; 87040; 87633; 87797; 93005; 93306; 97116; 97162; 97166; 97530; 99232; 99285; 99291; J1815; J1940; J3475

== ENCOUNTER → 2023-02-19 11:06 | Outpatient (CLI) | payer MEDICARE, BC, SELFPAY ==
[2022-12-19 13:14] VITALS: BMI 27.3
--- NOTE | 2023-02-19 | DI.CT.S_ITS ---
PROCEDURE: CT CHEST ABD PEL W CON INDICATIONS: Other pancytopenia TECHNIQUE: After the administration of oral and intravenous contrast, axial sections acquired from the supraclavicular neck to the pubic symphysis. Coronal and sagittal reformats were performed. For radiation dose reduction, the following was used: automated exposure control, adjustment of mA and/or kV according to patient size. COMPARISON: None. FINDINGS: Image quality: Excellent. CHEST: Lower Neck: No enlarged lymph nodes. Thyroid: Within normal limits. Axillae: No enlarged lymph nodes. Chest Wall: Unremarkable. Lungs and Airways: 9 mm ground-glass nodule with central lucency in the superior left lower lobe (series 3, image 92). 2 mm solid nodule, lateral left upper lobe (series 3, image 112). Pleura: No pneumothorax or pleural effusions. Heart: Heart size is normal. No pericardial effusion. Moderate coronary artery calcifications for age. Thoracic Vessels: The aorta and pulmonary arteries demonstrate normal size. Mediastinum and Violeta: No enlarged lymph nodes. Esophagus: No wall thickening. No hiatal hernia. Oral contrast within the esophagus. ABDOMEN: Liver: No solid mass. Gallbladder: No radiopaque gallstones or wall thickening. Biliary ducts: No biliary dilation. Pancreas: No ductal dilation. Spleen: Size is within normal limits. Adrenal Glands: No adrenal nodules. Kidneys and Ureters: No hydronephrosis. No solid mass. No complex renal cystic lesion which requires follow up. Stomach and Bowel: Normal colonic caliber, without significant wall thickening. Peritoneum: No abnormal intraperitoneal fluid. No free air. Ventral Wall: No hernia. Abdominal Nodes: No retroperitoneal or mesenteric adenopathy by size criteria. Vessels: Aorta and inferior vena cava are normal in size. PELVIS: Pelvic Organs: Unremarkable. Bladder: Unremarkable. Pelvic Nodes: No enlarged lymph nodes. Miscellaneous: No inguinal hernias are seen. 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 Grade 1 anterolisthesis L4 on L5 secondary to facet arthrosis. IMPRESSION: No findings to explain the patient's pancytopenia. Oral contrast within the esophagus, which may indicate esophageal dysmotility or reflux. Dictated by: Stanislav Patel M.D. on 02/19/2023 at 12:45 Approved by: Stanislav Patel M.D. on 02/19/2023 at 12:57
== END ==
PROVIDERS: PCP Family Medicine; Referring Provider Nurse Practitioner Family; Visit Provider Nurse Practitioner Family
DX: D47.2 Monoclonal gammopathy (principal); D61.818 Other pancytopenia; R91.8 Other nonspecific abnormal finding of lung field; I25.10 Atherosclerotic heart disease of native coronary artery without angina pectoris; M43.28 Fusion of spine, sacral and sacrococcygeal region; Z96.642 Presence of left artificial hip joint; M43.16 Spondylolisthesis, lumbar region; M47.816 Spondylosis without myelopathy or radiculopathy, lumbar region
CPT/HCPCS: 71260; 74177; Q9967

== ENCOUNTER → 2024-06-30 16:32 | Outpatient (CLI) | payer MEDICARE, BC, SELFPAY ==
[2022-12-19 13:14] VITALS: BMI 27.3
--- NOTE | 2024-06-30 16:34 | DI.MRI.S_ITS ---
PROCEDURE: MR SHOULDER LT WO CON INDICATIONS: SPRAIN OF LEFT ROTATOR CUFF CAPSULE TECHNIQUE: Noncontrast oblique coronal T2 fast spin echo with fat saturation, oblique sagittal T1 spin echo and T2 fast spin echo with fat saturation, axial T1 spin echo and T2 fast spin echo with fat saturation through the shoulder. COMPARISON: [facility] [place], CR, XR SHOULDER 2+ VIEWS LEFT, 06/23/2024, 16:57. FINDINGS: Image quality: Excellent. Rotator cuff: Full-thickness tearing of the supraspinatus tendon and the anterior fibers infraspinatus tendon measuring approximately 2.0 cm in anterior-posterior dimension with 3.7 cm of proximal tendon retraction. High-grade partial tearing of the more posterior portion of the infraspinatus tendon is noted. Teres minor tendon is intact. There is high-grade partial articular sided tearing of the subscapularis tendon at the superior insertion. Edema is seen within the supraspinatus and infraspinatus muscle suggesting muscle strains. No disproportionate rotator cuff muscle atrophy. Bones and bursae: No acute trabecular bone injury or fracture. Small chronic traction cystic changes are seen at the posterior superior humeral head. Mild cartilage thinning and irregularity in the glenohumeral joint with small marginal osteophytes. Moderate to severe degenerative changes at the acromioclavicular joint. There is mild superior displacement of the distal clavicle relative to the acromion as well as intermediate signal in the coracoclavicular ligament suggesting prior acromioclavicular separation injury. A small amount of fluid in the subacromial/subdeltoid bursa communicates with a small glenohumeral effusion. Capsule and soft tissues: Diffuse labral degeneration. No acute displaced labral tear is seen. Proximal biceps long head tendon demonstrates severe tendinosis and partial intrasubstance tearing at the proximal intra-articular portion. Glenohumeral ligaments appear to be intact. IMPRESSION: 1. Full-thickness tearing of the supraspinatus tendon and the anterior portion of the infraspinatus tendon measuring 2.0 cm in anterior-posterior dimension with 3.7 cm of proximal tendon retraction. High-grade partial tearing of the more posterior infraspinatus tendon. Low-grade strains of the supraspinatus and infraspinatus muscles without disproportionate atrophy. 2. High-grade partial articular sided tearing at the subscapularis tendon at the distal insertion. 3. Severe tendinosis and partial intrasubstance tearing of the proximal biceps long head tendon. 4. Moderate to severe degenerative changes at the acromioclavicular joint with findings suggestive of possible remote prior acromioclavicular separation injury. 5. Small glenohumeral effusion communicates with the subacromial/subdeltoid bursa. Approved by: Rashad Woodson M.D. on 07/03/2024 at 9:03
== END ==
PROVIDERS: PCP Family Medicine; Referring Provider Orthopaedic Surgery; Visit Provider Orthopaedic Surgery
DX: M75.122 Complete rotator cuff tear or rupture of left shoulder, not specified as traumatic (principal); S46.112A Strain of muscle, fascia and tendon of long head of biceps, left arm, initial encounter; M25.412 Effusion, left shoulder; M19.012 Primary osteoarthritis, left shoulder
CPT/HCPCS: 73221

== ENCOUNTER → 2024-08-29 13:23 | Outpatient (CLI) | payer MEDICARE, BC, SELFPAY ==
[2022-12-19 13:14] VITALS: BMI 27.3
--- NOTE | 2024-08-29 13:24 | DI.MRI.S_ITS ---
PROCEDURE: MR LUMBAR SPINE WO CON INDICATIONS: lbp right sciatica TECHNIQUE: Noncontrast sagittal T1 spin echo and T2 fast echo, sagittal STIR, and T2 fast spin echo through the lumbar spine. In cases with scoliosis, additional coronal T2 fast spin echo may be performed. COMPARISON: [facility], MR, MR LUMBAR SPINE WO CON, 10/07/2021, 11:19. FINDINGS: Image quality: Excellent Mild retrolisthesis of T11 on T12, T12 on L1, L2 on L3, L3 on L4. Grade 1 anterolisthesis L4 on L5, and L5 on S1. Vertebral body height of the lumbar spine are well maintained. Marrow signal is normal for age. Multilevel disc bulge and disc desiccation. Conus terminates at the level of L1-2, and is unremarkable. Right neural foraminal stenosis: Mild at T10-T11 moderate at L2-3, L3-4, L4-5, and L5-S1. Left neural foraminal stenosis: Mild at L3-4, L4-5, and severe at L5-S1. Axial images: T11-T12: Posterior disc uncovering. Mild bilateral facet arthropathy. Mild central canal stenosis. T12-L1: Disc bulge. Mild bilateral facet arthropathy. Mild central canal stenosis. L1-2: Disc bulge. Mild bilateral facet arthropathy. No central canal stenosis. L2-3: Posterior disc uncovering. Mild bilateral facet arthropathy. No central canal stenosis. L3-4: Disc bulge. Moderate bilateral facet arthropathy. No central canal stenosis. L4-5: Posterior disc uncovering. Severe bilateral facet arthropathy with ligamentum flap per trophy. Moderate to severe central canal stenosis. L5-S1: Disc bulge. Mild bilateral facet arthropathy with ligamentum flava hypertrophy. Mild central canal stenosis. 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 Mild degenerative changes of the left sacroiliac joint with anterior bridging disc osteophyte. The visualized sacrum is intact. No abdominal aortic aneurysm. IMPRESSION: 1. Multilevel degenerative changes lumbar spine, most pronounced at L4-5, where there is moderate to severe central canal stenosis, improved in comparison to prior exam. 2. Additional multilevel neural foraminal stenosis as described above. Dictated by: Teagan Lenz M.D. on 08/29/2024 at 17:11 Approved by: Teagan Lenz M.D. on 08/29/2024 at 17:21
== END ==
PROVIDERS: PCP Family Medicine; Referring Provider Family Medicine; Visit Provider Family Medicine
DX: M47.26 Other spondylosis with radiculopathy, lumbar region (principal); M47.27 Other spondylosis with radiculopathy, lumbosacral region; M48.061 Spinal stenosis, lumbar region without neurogenic claudication; M48.07 Spinal stenosis, lumbosacral region
CPT/HCPCS: 72148

== ENCOUNTER → 2024-10-10 11:25 | Outpatient (CLI) | payer MEDICARE, BC, SELFPAY ==
[2022-12-19 13:14] VITALS: BMI 27.3
--- NOTE | 2024-10-10 11:27 | DI.RAD.S_ITS ---
PROCEDURE: XR LUMBAR SPINE MIN 4V INDICATIONS: BACK PAIN TECHNIQUE: 5 views of the lumbar spine were acquired, including bilateral oblique views. COMPARISON: None. FINDINGS: Bones: 5 nonrib-bearing vertebrae are present. There is [id number] dextroscoliosis of thoracolumbar spine with apex at L1 level. There is 5 mm retrolisthesis of L1 on L2, L2 on L3 and L3 on L4 with 7 mm anterolisthesis of L4 on L5. Moderate degenerative endplate changes and bilateral facet arthrosis throughout lumbar spine is seen. No vertebral body compression fractures. No suspicious bony lesions. Soft tissues: Overlying bowel gas pattern is normal. No suspicious soft tissue calcifications. Oblique images: No pars defects. Extensive bilateral bony foraminal stenosis are noted on oblique views more notably involving L3-4 and L4-5 levels. IMPRESSION: Moderate spondylitic changes throughout lumbar spine. [id number] scoliosis as above. Grade 1 spondylolisthesis throughout lumbar spine. No acute vertebral body compression fracture. Suggestion of bilateral bony foraminal stenosis throughout lumbar spine seen on oblique views. No gross pars defects. Dictated by: Rolly Olvera M.D. on 10/10/2024 at 11:49 Approved by: Rolly Olvera M.D. on 10/10/2024 at 11:52
== END ==
PROVIDERS: PCP Family Medicine; Referring Provider Family Medicine; Visit Provider Family Medicine
DX: M47.816 Spondylosis without myelopathy or radiculopathy, lumbar region (principal); M43.16 Spondylolisthesis, lumbar region; M54.9 Dorsalgia, unspecified; M41.9 Scoliosis, unspecified
CPT/HCPCS: 72110

== ENCOUNTER → 2024-10-20 12:51 | Outpatient (CLI) | payer MEDICARE, BC, SELFPAY ==
[2022-12-19 13:14] VITALS: BMI 27.3
[2024-10-20 14:46] LABS: Blood Urea Nitrogen 31 mg/dL (9-20); Calcium 9.6 mg/dL (8.4-10.2); Carbon Dioxide 26 mmol/L (22-32); Chloride 104 mmol/L (98-107); Estimated Glomerular Filt Rate 54 mL/min (>60); Glucose 92 mg/dL (70-99); HEMOLYSIS < 15 (0-50); Potassium 4.5 mmol/L (3.4-5.1); Sodium 140 mmol/L (137-145)
== END ==
PROVIDERS: PCP Family Medicine; Referring Provider Family Medicine; Visit Provider Family Medicine
DX: E78.5 Hyperlipidemia, unspecified (principal); N18.31 Chronic kidney disease, stage 3a
CPT/HCPCS: 36415; 80048